=== PATIENT | male | born 1955 | race Caucasian/White ===

== ENCOUNTER → 2016-03-14 | Outpatient (CLI) | payer MEDICAID | LOC: RAD 08:57 | PROVIDERS: ATTEND Physician Assistant | DX: R41.82 Altered mental status, unspecified (principal) | CPT/HCPCS: 70450 ==

== ENCOUNTER 2016-04-24 18:57 | Emergency (ER) | payer MEDICAID ==
--- NOTE | 2016-04-24 19:50 | ER Document Report ---
ED Medical Screen (RME) - General Stated Complaint: PSYCH EVAL Time seen by provider: 19:47 Mode of Arrival: Wheelchair Information source: Friend Notes: 61-year-old male presents to ED for hallucinating unable to function according to his roommate. His friend states he has not been able to walk. The roommate states that she took him to physical therapy today and they told her to bring him back to the emergency room. She states whenhe was in the emergency room on on Thursday and she picked him up that he was laying in a bed of urine and she had to clean him up and put his clothes on him. She states she has a history of schizophrenia but is never acted like this before. I have greeted and performed a rapid initial assessment of this patient. A comprehensive ED assessment and evaluation of the patient, analysis of test results and completion of medical decision making process will be conducted by an additional ED providers. TRAVEL OUTSIDE OF THE [place] IN LAST 30 DAYS: No - Related Data Allergies/Adverse Reactions: No Known Allergies Allergy (Verified 04/22/16 07:49) Past Medical History - Past Medical History Cardiac Medical History: Reports: Hx Hypercholesterolemia, Hx Hypertension Pulmonary Medical History: Reports: Hx Pneumonia Endocrine Medical History: Reports: Hx Hyperthyroidism, Hx Hypothyroidism Renal/ Medical History: Denies: Hx Peritoneal Dialysis Musculoskeltal Medical History: Reports Hx Muscle Spasm, Reports Hx Musculoskeletal Deformity, Reports Hx Musculoskeletal Trauma Psychiatric Medical History: Reports: Hx Bipolar Disorder, Hx Depression, Hx Schizoaffective Disorder, Hx Schizophrenia - PARANOID Past Surgical History: Reports: Hx Orthopedic Surgery - Immunizations Immunizations up to date: Yes Hx Diphtheria, Pertussis, Tetanus Vaccination: Yes Physical Exam - Vital signs Vitals: Temp Pulse Resp BP Pulse Ox 98.9 F 70 20 124/71 98 04/24/16 19:06 04/24/16 19:06 04/24/16 19:06 04/24/16 19:06 04/24/16 19:06 Course - Vital Signs Vital signs: Temp Pulse Resp BP Pulse Ox 98.9 F 70 20 124/71 98 04/24/16 19:06 04/24/16 19:06 04/24/16 19:06 04/24/16 19:06 04/24/16 19:06
--- NOTE | 2016-04-24 20:17 | ER Document Report ---
ED Psych Disorder / Suicide - General Chief Complaint: Psych Problem Stated Complaint: PSYCH EVAL Mode of Arrival: Wheelchair Notes: The patient is a 61-year-old male, past medical history schizophrenia, bipolar, dementia, chronic weakness, presents with increasing hallucinations and regression. He was seen in the emergency room 2 days ago and had a negative medical workup for these complaints, including a normal head CT. Patient was attempting physical therapy today and was told to come the emergency room for further evaluation, since he was uncooperative and having hallucinations. The patient is AAO 3, but will only follow some commands. He is also not letting his executive chef know when he has to use the bathroom. Unable to obtain any additional history from the patient. TRAVEL OUTSIDE OF THE [place] IN LAST 30 DAYS: No - Related Data Allergies/Adverse Reactions: No Known Allergies Allergy (Verified 04/22/16 07:49) Past Medical History - General Information source: Friend - Social History Smoking Status: Current Every Day Smoker Chew tobacco use (# tins/day): No Frequency of alcohol use: None Drug Abuse: None Family History: None Patient has suicidal ideation: No Patient has homicidal ideation: No - Past Medical History Cardiac Medical History: Reports: Hx Hypercholesterolemia, Hx Hypertension Pulmonary Medical History: Reports: Hx Pneumonia Endocrine Medical History: Reports: Hx Hyperthyroidism, Hx Hypothyroidism Renal/ Medical History: Denies: Hx Peritoneal Dialysis Musculoskeltal Medical History: Reports Hx Muscle Spasm, Reports Hx Musculoskeletal Deformity, Reports Hx Musculoskeletal Trauma Psychiatric Medical History: Reports: Hx Bipolar Disorder, Hx Depression, Hx Schizoaffective Disorder, Hx Schizophrenia - PARANOID Past Surgical History: Reports: Hx Orthopedic Surgery - Immunizations Immunizations up to date: Yes Hx Diphtheria, Pertussis, Tetanus Vaccination: Yes Review of Systems - Review of Systems Notes: REVIEW OF SYSTEMS: CONSTITUTIONAL: -fevers, -chills EENT: -eye pain, -difficulty swallowing, -nasal congestion CARDIOVASCULAR:-chest pain, -syncope. RESPIRATORY: -cough, -SOB GASTROINTESTINAL: -abdominal pain, - nausea, -vomiting, -diarrhea GENITOURINARY: -dysuria, -hematuria MUSCULOSKELETAL: -back pain, -neck pain SKIN: -rash or skin lesions. HEMATOLOGIC: -easy bruising or bleeding. LYMPHATIC: -swollen, enlarged glands. NEUROLOGICAL: -headache, -acute weakness PSYCHIATRIC: -anxiety, -depression, +hallucinations ALL OTHER SYSTEMS REVIEWED AND NEGATIVE. Physical Exam - Vital signs Vitals: Temp Pulse Resp BP Pulse Ox 98.9 F 70 20 124/71 98 04/24/16 19:06 04/24/16 19:06 04/24/16 19:06 04/24/16 19:06 04/24/16 19:06 - Notes Notes: PHYSICAL EXAMINATION: GENERAL: Unkempt, no acute distress HEAD: Atraumatic, normocephalic. EYES: Pupils equal round and reactive to light, extraocular movements intact, sclera anicteric, conjunctiva are normal. ENT: nares patent, oropharynx clear without exudates. Moist mucous membranes. NECK: Normal range of motion, supple without lymphadenopathy LUNGS: Breath sounds clear to auscultation bilaterally and equal. No wheezes rales or rhonchi. HEART: Regular rate and rhythm without murmurs ABDOMEN: Soft, nontender, normoactive bowel sounds. No guarding, no rebound. No masses appreciated. EXTREMITIES: Normal range of motion, no pitting or edema. No cyanosis. NEUROLOGICAL: Cranial nerves grossly intact. Normal speech, normal gait. Normal sensory, motor, and reflex exams. PSYCH: Slightly agitated, but redirectable. Not suicidal. SKIN: Warm, Dry, normal turgor, no rashes or lesions noted. Course - Re-evaluation Re-evalutation: Patient's lab and CT from 2 days ago did not show any acute abnormalities. Suspect a component of worsening schizophrenia, bipolar and dementia causing his hallucinations and uncooperative behavior. Since he is not participating in physical therapy, he may have worsening physical conditioning. Creatinine has improved from 2 days ago. Will hydrate the patient gently overnight and have mental health evaluate patient in the morning for further recommendations. - Vital Signs Vital signs: Temp Pulse Resp BP Pulse Ox 98.9 F 70 20 124/71 98 04/24/16 19:06 04/24/16 19:06 04/24/16 19:06 04/24/16 19:06 04/24/16 19:06 - Laboratory Result Diagrams: 04/24/16 20:05 04/24/16 20:05 Laboratory results interpreted by me: 04/24/16 04/24/16 20:05 20:05 RBC 3.57 L Hgb 11.2 L Hct 33.5 L Plt Count 117 L BUN 29 H Creatinine 1.40 H Est GFR (Non-Af Amer) 51 L Glucose 113 H Discharge - Discharge Clinical Impression: Hallucinations, Physical deconditioning Condition: Stable Disposition: PSYCH HOSP/UNIT
[2016-04-24 20:27] LABS: ABSOLUTE LYMPHOCYTES (AUTO) 1.4 10^3/uL (0.5-4.7); ABSOLUTE MONOCYTES (AUTO) 0.6 10^3/uL (0.1-1.4); ABSOLUTE NEUT (AUTO) 4.6 10^3/uL (1.7-8.2); BASOPHILS % (AUTO) 0.1 % (0-2); EOSINOPHILS % (AUTO) 0.4 % (0-6); HEMATOCRIT 33.5 % (37.9-51.0); HEMOGLOBIN 11.2 g/dL (13.5-17.0); HGB HCT DIFFERENCE 0.1; LYMPHOCYTES % (AUTO) 21.1 % (13-45); MEAN CORPUSCULAR HEMOGLOBIN 31.5 pg (27.0-33.4); MEAN CORPUSCULAR HGB CONC 33.5 g/dL (32.0-36.0); MEAN CORPUSCULAR VOLUME 94 fl (80-97); MONOCYTES % (AUTO) 9.4 % (3-13); RED BLOOD COUNT 3.57 10^6/uL (4.35-5.55); RED CELL DISTRIBUTION WIDTH 12.7 % (11.5-14.0); WHITE BLOOD COUNT 6.7 10^3/uL (4.0-10.5)
[2016-04-24] MEDS ORDERED: NORMAL SALINE 1000 ML 1,000 ML IV ONE (20:38)
[2016-04-24 20:39] LABS: ALANINE AMINOTRANSFERASE 29 U/L (21-72); ALBUMIN 4.2 g/dL (3.5-5.0); ALKALINE PHOSPHATASE 50 U/L (38-126); ANION GAP 11 (5-19); ASPARTATE AMINO TRANSFERASE 18 U/L (17-59); BILIRUBIN,TOTAL 0.6 mg/dL (0.2-1.3); BLOOD UREA NITROGEN 29 mg/dL (7-20); CALCIUM 9.8 mg/dL (8.4-10.2); CARBON DIOXIDE 27 mmol/L (22-30); CHLORIDE 107 mmol/L (98-107); GLUCOSE 113 mg/dL (75-110); POTASSIUM 4.4 mmol/L (3.6-5.0); SODIUM 144.6 mmol/L (137-145); TOTAL PROTEIN 7.1 g/dL (6.3-8.2)
[2016-04-24 20:45] LABS: ALCOHOL < 10 mg/dL (NONE DETECTED)
[2016-04-24 20:55] LABS: FREE T3 3.69 pg/mL (2.77-5.27)
[2016-04-24 21:09] LABS: THYROID STIMULATING HORMONE 2.55 uIU/mL (0.47-4.68)
[2016-04-24] MEDS: OLANZAPINE 5 MG TABLET PO SCH (22:48)
--- NOTE | 2016-04-25 10:22 | ER Document Report ---
Doctor's Note Notes: 04/25/16 10:20 Medical rounds: Chart reviewed and patient interviewed briefly. Patient complains of continued weakness in the left leg, otherwise no somatic complaints. He appears mildly lethargic but easily arousable, oriented, and conversant. Vital signs are normal. Laboratory values are satisfactory. Patient remains medically stable pending psychiatric evaluation.
[2016-04-25] MEDS ORDERED: DIVALPROEX SODIUM 500 MG TAB.SR.24H PO SCH (11:00)
[2016-04-25 11:41] LABS: APPEARANCE,URINE SLIGHTLY-CLOUDY; BILIRUBIN,URINE NEGATIVE (NEGATIVE); GLUCOSE, URINE NEGATIVE (NEGATIVE); KETONES,URINE NEGATIVE (NEGATIVE); LEUKOCYTE ESTERASE,URINE MODERATE (NEGATIVE); NITRITE,URINE NEGATIVE (NEGATIVE); PROTEIN,URINE NEGATIVE (NEGATIVE); URINE SPECIFIC GRAVITY 1.011; UROBILINOGEN,URINE NEGATIVE mg/dL (<2.0)
[2016-04-25] MEDS ORDERED: DIVALPROEX SODIUM 500 MG TAB.SR.24H PO ONE (12:00)
[2016-04-25 12:11] LABS: URINE BARBITURATES SCREEN NEGATIVE; URINE METHADONE SCREEN NEGATIVE; URINE OPIATES LOW NEGATIVE; URINE PHENCYCLIDINE SCREEN NEGATIVE
--- NOTE | 2016-04-25 12:58 | ER Document Report ---
Doctor's Note Notes: 04/25/16 12:52 Results of urinalysis and toxicology screen noted. There is some pyuria and bacteriuria, which may be significant on a catheterized specimen. Will initiate treatment with Macrobid and Pyridium. RN reports the bladder was allowed to drain completely, with a total of approximately 250 mL volume. This makes it extremely unlikely that this patient has any serious neurologic dysfunction causing his incontinence.
[2016-04-25] MEDS: PHENAZOPYRIDINE HCL 200 MG TABLET PO SCH ×2 (13:13→18:44)
--- NOTE | 2016-04-25 15:59 | PSYCHOLOGICAL NOTE ---
Psych Note - Psych Note Psych Note: The patient presented to [facility] ED with a past medical history schizophrenia, bipolar, dementia, chronic weakness, presents with increasing hallucinations and regression. Upon entering clinician greeted patient patient stated "Not... Not... Not so loud." Clinician apologized and turned off TV. Clinician asked patient if he remembered how he arrives to [facility] ED. Patient mumbled; however, clinician was unable to identify the patient's response. Patient was unable to continue evaluation. Every question patient was asked after, the patient proceeded to breathe heavy and move his hands briefly as if he was answering; however, patient was not forming any words. Patient will have to be reevaluated at a later time.
[2016-04-25] MEDS ORDERED: LORAZEPAM INJ 2 MG/1 ML VIAL IV ONE ×2 (16:20→20:42)
[2016-04-25] MEDS: NITROFURANTOIN MONOHYD/M-CRYST 100 MG CAPSULE PO SCH (18:44)
[2016-04-25] MEDS: BUSPIRONE HCL 10 MG TABLET PO SCH (21:00)
[2016-04-25] MEDS: OLANZAPINE 5 MG TABLET PO SCH (21:00)
[2016-04-25] MEDS: DIVALPROEX SODIUM 500 MG TAB.SR.24H PO SCH (21:00)
[2016-04-26] MEDS ORDERED: ZIPRASIDONE MESYLATE INJ/PF 20 MG SDV IM ONE (04:09)
--- NOTE | 2016-04-26 09:18 | PSYCHOLOGICAL NOTE ---
Psych Note - Psych Note Psych Note: The patient presented to [facility] ED with a past medical history schizophrenia, bipolar, dementia, chronic weakness, presents with increasing hallucinations and regression. Reevaluation Patient was able to identify that he is [facility] in [place]. He is unable to remember how he came to the ED. Patient states that he wants to move down to the end of the bed so he does not slip; clinician notes that the patient's feet are at the edge of the bed. When patient is asked if he remembers where he goes for outpatient services, patient started talking about the "one on the the wire" and then stated he "goes to the paster... then when done goes to the next corner." Patient is alert and orientated to Person and place. Mood is euthymic with congruent affect. Patient's thought process and higher cognitive functioning is still impaired with disorganized thoughts process, rambling conversational speech that is within normal rate tone and prosody, and orientation waxing and waning. Review of chart/records noted patient was seen 08/22/15 and 08/24/15 for AMS. On patient was seen in the ED by the MH team after he had just been discharged from the [place]. Obtained roommate contact information from this previous visit. Head CT dated 11/10/15 findings are: prominence of ventricles and sulci consistent with cerebral atrophy, focal areas of low density in the deep right parietal lobe and right basal ganglia consistent with old lacunar infarcts. These are consistent with findings and impression from 07/16/[address] Head [address]s. 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 Patient's presentation has been identified as bioloigcal in nature and recommendations identified in Nov 2015 list benzodiazepines, antipsychotics, some sleep medications, steroids, and pain medications as these have a tendency to cause or exacerbate psychosis and/or aggression. It was identified that the pateint was on zyprexa, an anti- psychotic, and just had an increase prior to current psychosis onset. Dr. oscar was consulted on the care and management of his patient; Attending physician is in agreement with recommendations and disposition. 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 Patient's most significant deficits are notable in decision making, planning, sequencing, expression of language, safety awareness, higher cortical abstract reasoning, insight, judgment, impulse control, and ability to manage his behavior. These deficits place the Patient in harm's way and make him vulnerable to being taken advantage of by others, and also to make decisions that are not in his best interest. Patient's cognitive presentation will continue to decline, particularly given results of his head CT which show prominent ventricles and sulci consistent with cerebral atrophy, and low density areas in the deep right parietal lobe and right basal ganglia consistent with an old lacunar infarct. As such the following recommendations are made to ensure the Patient's safety and well being going forward: Recommendations: 1. Patient will require ongoing treatment for the care of his medical and mental health problems for the foreseeable future, and is should follow up with his primary care physician and mental health provider upon discharge. 2. Patient is not capable of making safe or reasonable decisions on his own behalf. A guardian to protect his medical , legal, financial, and personal interests are recommended. Patient's requests should be considered but his ability to independently make decisions is severely compromised. 3. Patient requires a higher level of care given his neurocognitive and physical deterioration. His current living situation is not felt to best meet his needs given his roommate is not his guardian, does take care of his daily living activities, but has no obligation to do so, and should Patient become aggravated, his roommates have no obligation to keep Patient in his current living arrangements. Additionally, it is felt the Patient requires 24-hour supervision as his cognitive status continues to decline and his ability to inhibit his impulses becomes more difficult, particularly given his access to alcohol at this time. 4. Attending / Prescribing physicians are encouraged to avoid the use of benzodiazepines, antipsychotics,a nd narcotic medications if possible, as research shows these classes of medicines are dangerous to individuals diagnosed with dementia and can also enhanced agitation, increased irritability and aggression, and cause hallucinations and psychosis, and potentially . Consulted with Dr. Oscar regarding the management and care of patient. Medication recommendations made by the psychiatric medical provider include: Note that due to dementia doctors should avoid medications such as benzodiazepines, antipsychotics, some sleep medications, steroids, and pain medications as these have a tendency to cause or exacerbate psychosis and/or aggression.
[2016-04-26] MEDS: DIVALPROEX SODIUM 500 MG TAB.SR.24H PO SCH ×2 (09:51→23:20)
[2016-04-26] MEDS: NITROFURANTOIN MONOHYD/M-CRYST 100 MG CAPSULE PO SCH ×2 (09:51→18:02)
[2016-04-26] MEDS: PHENAZOPYRIDINE HCL 200 MG TABLET PO SCH ×2 (13:50→18:02)
--- NOTE | 2016-04-26 21:25 | ER Document Report ---
Doctor's Note Notes: 04/26/16 21:22 Medical rounds: Patient continues to be confused, although he has shown some improvement in his ambulation. Also, his urinary incontinence has apparently resolved. He has done well today without any additional pharmacologic interventions. Finding placement for this patient is proving to be challenging. Discharge planning and social media senior associate have been consulted for resolution of this problem. He remains medically stable.
[2016-04-26] MEDS: OLANZAPINE 5 MG TABLET PO SCH (23:20)
[2016-04-26] MEDS: BUSPIRONE HCL 10 MG TABLET PO SCH (23:20)
[2016-04-27] MEDS: DIVALPROEX SODIUM 500 MG TAB.SR.24H PO SCH (10:55)
[2016-04-27] MEDS: PHENAZOPYRIDINE HCL 200 MG TABLET PO SCH (10:56)
[2016-04-27] MEDS: NITROFURANTOIN MONOHYD/M-CRYST 100 MG CAPSULE PO SCH (10:56)
[2016-04-27 13:39] VITALS: BP 148/86
== END 2016-04-27 13:39 | disposition home or self-care (01) ==
LOC: ER 18:57
DX: R32 Unspecified urinary incontinence (principal); F02.81 Dementia in other diseases classified elsewhere, unspecified severity, with behavioral disturbance; R53.1 Weakness; I67.9 Cerebrovascular disease, unspecified; T43.595A Adverse effect of other antipsychotics and neuroleptics, initial encounter; T50.905A Adverse effect of unspecified drugs, medicaments and biological substances, initial encounter; Y92.009 Unspecified place in unspecified non-institutional (private) residence as the place of occurrence of the external cause; F17.200 Nicotine dependence, unspecified, uncomplicated; F20.9 Schizophrenia, unspecified; R44.3 Hallucinations, unspecified; E03.9 Hypothyroidism, unspecified; E78.00 Pure hypercholesterolemia, unspecified; I10 Essential (primary) hypertension
CPT/HCPCS: 96376; 99285; 96372; 96361; 96374; 36415; 87086; 84439; 80307 ×2; 84443; 85025; 87088; 80053; 81001; 84481; J3490 ×14; J2060; J3486; J7030; J8499

== ENCOUNTER 2016-09-29 07:50 | Day surgery (SDC) | payer MEDICAID ==
[~2016-09-29 07:50] MED LIST: PROPOFOL INJ 200 MG/20 ML VIAL IV ONE
--- NOTE | 2016-09-29 08:40 | EKG REPORT ---
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
[2016-09-29 09:54] VITALS: BP 136/61
--- NOTE | 2016-09-29 14:31 | Operative Report ---
Operative Report DATE OF SURGERY: 09/29/16 Operative Report: The risks, benefits and alternatives of the procedure including risks of bleeding, perforation requiring surgery are explained to the patient detail and informed consent was obtained. Patient was brought back to the endoscopy suite and placed in the left, lateral decubital position. A rectal examination is done which did not reveal any masses tenderness or fissures. Timeout was called. Propofol medications administered. An Olympus videoscope was inserted into the patient's rectum. The scope was then carefully advanced all the way to the cecum. The cecum was identified by the usual anatomical landmarks of the ileocecal valve as well as the appendiceal office. Photodocumentation is obtained. Prep is good. The scope was then sequentially pulled back via the various segments of the colon including the ascending colon, hepatic flexure, transverse colon, splenic flexure, descending colon finding to the rectosigmoid portions of the colon. Retroflexion maneuver was performed. PREOPERATIVE DIAGNOSIS: Chronic constipation. Family history of colorectal cancer POSTOPERATIVE DIAGNOSIS: Large polyp noted in the sigmoid removed via snare polypectomy. Small polyp noted in the cecum removed via biopsy forceps. No masses, AVMs or diverticulosis noted OPERATION: Colonoscopy with snare polypectomy. Colonoscopy with biopsy SURGEON: SUNIL ARAUJO ANESTHESIA: LMAC TISSUE REMOVED OR ALTERED: Both polyps are retrieved. COMPLICATIONS: None. ESTIMATED BLOOD LOSS: None. INTRAOPERATIVE FINDINGS: As described above. PROCEDURE: Patient tolerated procedure well. No immediate postprocedure complications are noted. Patient discharged in good condition. Discharge date 09/29/2016. Discharge diet: Regular. Discharge activity: Regular. 2-3 week follow-up to discuss findings. 3-5 year surveillance colonoscopy. We will wait on pathology. Patient is instructed to call the office or proceed to the emergency room should there be any further problems or questions.
== END 2016-09-29 10:00 | disposition home or self-care (01) ==
LOC: END 07:50
PROVIDERS: ATTEND Internal Medicine Gastroenterology
PROC: 0DBN8ZX Excision of Sigmoid Colon, Via Natural or Artificial Opening Endoscopic, Diagnostic (ICD-10-PCS; 2016-09-29)
PROC: 0DBH8ZX Excision of Cecum, Via Natural or Artificial Opening Endoscopic, Diagnostic (ICD-10-PCS; principal; 2016-09-29 09:00)
DX: D12.5 Benign neoplasm of sigmoid colon (principal); D12.0 Benign neoplasm of cecum; Z80.0 Family history of malignant neoplasm of digestive organs; E03.9 Hypothyroidism, unspecified
CPT/HCPCS: 45385; 88305 ×2; 93005; 93010; J2704; 810

== ENCOUNTER → 2017-04-09 | Outpatient (CLI) | payer MEDICAID ==
--- NOTE | 2017-04-09 13:39 | RADIOLOGY REPORT (SQ) ---
EXAM DESCRIPTION: LUMBAR SPINE COMPLETE COMPLETED DATE/TIME: 04/09/2017 9:08 am REASON FOR STUDY: LOW BACK PAIN J18.9 PNEUMONIA, UNSPECIFIED ORGANISM M54.5 LOW BACK PAIN COMPARISON: 04/26/2014 NUMBER OF VIEWS: Five views including obliques. TECHNIQUE: AP, lateral, oblique, and sacral radiographic images acquired of the lumbar spine. LIMITATIONS: None. FINDINGS: MINERALIZATION: Normal. SEGMENTATION: Normal. No transitional anatomy. ALIGNMENT: Minimal scoliosis convex to to the right. Minor retrolisthesis L2-3 and L3-4 with arthrit ic changes of the facet joints. VERTEBRAE: Maintained height. No fracture or worrisome bone lesion. Stable slight flattening T12. DISCS: Minor joint narrowing upper lumbar region with trace osteophyte. POSTERIOR ELEMENTS: Intact. Arthritic changes. HARDWARE: None in the spine. PARASPINAL SOFT TISSUES: Normal. PELVIS: Limited visualization. OTHER: No other significant finding. IMPRESSION: Mild arthritic changes. No acute compression fractures. TECHNICAL DOCUMENTATION: JOB ID: [id number] [employer]- All Rights Reserved Reading location - IP/workstation name: [email or web address]
--- NOTE | 2017-04-09 16:15 | RADIOLOGY REPORT (SQ) ---
EXAM DESCRIPTION: CHEST PA/LATERAL COMPLETED DATE/TIME: 04/09/2017 9:08 am REASON FOR STUDY: PNEUMONIA, UNSPECIFIED ORGANISM COMPARISON: 01/02/2016 EXAM PARAMETERS: NUMBER OF VIEWS: two views TECHNIQUE: Digital Frontal and Lateral radiographic views of the chest acquired. RADIATION DOSE: NA LIMITATIONS: none FINDINGS: LUNGS AND PLEURA: New mild increased density in the right base consistent with pneumonia w hich appears to be in the anterior middle lobe on the lateral view. Minimal atelectasis in the left base. Lungs are otherwise clear. No significant effusion. MEDIASTINUM AND HILAR STRUCTURES: No masses or contour abnormalities. HEART AND VASCULAR STRUCTURES: Heart normal size. No evidence for failure. BONES: No acute findings. HARDWARE: None in the chest. OTHER: No other significant finding. IMPRESSION: Mild right basilar pneumonia. TECHNICAL DOCUMENTATION: JOB ID: [id number] [employer]- All Rights Reserved Reading location - IP/workstation name: [email or web address]
== END ==
LOC: OD 08:40
PROVIDERS: ATTEND Physician Assistant
DX: J18.9 Pneumonia, unspecified organism (principal); M54.5 Low back pain
CPT/HCPCS: 71046; 72110

== ENCOUNTER 2017-05-04 09:18 | Emergency (ER) | payer MEDICAID ==
--- NOTE | 2017-05-04 10:21 | ER Document Report ---
ED General - General Chief Complaint: Altered Mental Status Stated Complaint: ALTERED MENTAL STATUS Time Seen by Provider: 05/04/17 10:00 Notes: HPI-62 years old male presents today with fever chills cough, wheezing, as well as lower back pain from coughing. This is been going on for the last 2-3 days Denies any dysuria frequency urgency. Denies any nausea vomiting diarrhea. Difficult historian. REVIEW OF SYSTEMS: CONSTITUTIONAL : As per history of complain EENT: Denies eye, ear, throat, or mouth pain or symptoms. Denies nasal or sinus congestion or discharge. Denies throat, tongue, or mouth swelling or difficulty swallowing. CARDIOVASCULAR: Denies chest pain. Denies palpitations or racing or irregular heart beat. Denies ankle edema. RESPIRATORY: As per history of complaint GASTROINTESTINAL: Denies abdominal pain or distention. Denies nausea, vomiting , or diarrhea. Denies blood in vomitus, stools, or per rectum. Denies black, tarry stools. Denies constipation. GENITOURINARY: Denies difficulty urinating, painful urination, burning, frequency, blood in urine, or discharge. MUSCULOSKELETAL: Denies back or neck pain or stiffness. Denies joint pain or swelling. SKIN: Denies rash, lesions or sores. HEMATOLOGIC : Denies easy bruising or bleeding. LYMPHATIC: Denies swollen, enlarged glands. NEUROLOGICAL: Denies confusion or altered mental status. Denies passing out or loss of consciousness. Denies dizziness or lightheadedness. Denies headache. Denies weakness or paralysis or loss of use of either side. Denies problems with gait or speech. Denies sensory loss, numbness, or tingling. Denies seizures. PSYCHIATRIC: Denies anxiety or stress. Denies depression, suicidal ideation, or homicidal ideation. ALL OTHER SYSTEMS REVIEWED AND NEGATIVE. Dictation was performed using [employer] voice recognition software PHYSICAL EXAMINATION: GENERAL: Well-appearing, well-nourished and in no acute distress. HEAD: Atraumatic, normocephalic. EYES: Pupils equal round and reactive to light, extraocular movements intact, sclera anicteric, conjunctiva are normal. ENT: Nares patent, oropharynx clear without exudates. Moist mucous membranes. NECK: Normal range of motion, supple without lymphadenopathy LUNGS: Breath sounds clear to auscultation bilaterally and equal. No wheezes rales or rhonchi. HEART: Regular rate and rhythm without murmurs ABDOMEN: Soft, nontender, nondistended abdomen. No guarding, no rebound. No masses appreciated. Musculoskeletal: Normal range of motion, no pitting or edema. No cyanosis. NEUROLOGICAL: Cranial nerves grossly intact. Normal speech, normal gait. Normal sensory, motor exams PSYCH: Normal mood, normal affect. SKIN: Warm, Dry, normal turgor, no rashes or lesions noted. TRAVEL OUTSIDE OF THE [place] IN LAST 30 DAYS: No - HPI Severity: Moderate Pain Level: 3 - Related Data Allergies/Adverse Reactions: No Known Allergies Allergy (Verified 05/04/17 09:18) Past Medical History - Social History Smoking Status: Never Smoker Family History: None, Reviewed & Not Pertinent - Past Medical History Cardiac Medical History: Reports: Hx Hypercholesterolemia, Hx Hypertension - Takes Minipress, caregiver says its for his mental health Denies: Hx Coronary Artery Disease, Hx Heart Attack Pulmonary Medical History: Reports: Hx Pneumonia Denies: Hx Asthma, Hx Bronchitis, Hx COPD Neurological Medical History: Reports: Hx Cerebrovascular Accident - 2016, unsteady gait-uses walker , slurred speech , Hx Seizures Endocrine Medical History: Reports: Hx Hyperthyroidism, Hx Hypothyroidism Renal/ Medical History: Denies: Hx Peritoneal Dialysis Musculoskeltal Medical History: Reports Hx Arthritis - c/o leg and back pain , Reports Hx Muscle Spasm, Reports Hx Musculoskeletal Deformity, Reports Hx Musculoskeletal Trauma Psychiatric Medical History: Reports: Hx Bipolar Disorder, Hx Depression, Hx Schizoaffective Disorder, Hx Schizophrenia - PARANOID Past Surgical History: Reports: Hx Orthopedic Surgery - Immunizations Immunizations up to date: Yes Hx Diphtheria, Pertussis, Tetanus Vaccination: No Physical Exam - Vital signs Vitals: Temp Pulse Resp BP Pulse Ox 101.8 F H 82 22 H 170/74 H 94 05/04/17 09:24 05/04/17 09:24 05/04/17 09:24 05/04/17 09:24 05/04/17 09:24 Course - Re-evaluation Re-evalutation: 05/04/17 13:33 His lab results came back normal he must be having viral syndrome. He has known dementia and behavioral issues. - Vital Signs Vital signs: Temp Pulse Resp BP Pulse Ox 100.0 F 82 22 H 151/75 H 92 05/04/17 16:00 05/04/17 09:24 05/04/17 11:13 05/04/17 11:13 05/04/17 11:13 - Laboratory Result Diagrams: 05/04/17 10:55 05/04/17 10:55 Laboratory results interpreted by me: 05/04/17 05/04/17 05/04/17 10:28 10:55 10:55 RBC 3.74 L Hgb 11.4 L Hct 34.2 L RDW 14.5 H Seg Neuts % (Manual) 80 H Band Neutrophils % 1 L Lymphocytes % (Manual) 10 L Chloride 108 H Urine Blood SMALL H - Diagnostic Test Radiology reviewed: Reports reviewed - CT of the brain reported by radiologist as chronic vascular changes no acute changes. Chest x-ray reported by radiologist as possible atelectasis. - EKG Interpretation by Me EKG shows normal: Sinus rhythm Rate: Normal Rhythm: NSR - Sinus rhythm at the rate of 90 bpm normal axis no acute ST elevation ST depression T-wave inversion noted. Except right bundle branch block pattern [place]/QRS: RBBB Discharge - Discharge Clinical Impression: Viral syndrome Schizophrenia Qualifiers: Schizophrenia type: other Qualified Code(s): F20.89 - Other schizophrenia Disposition: HOME, SELF-CARE Instructions: Viral Syndrome (OM) Referrals: EBONIE ZURITA PA-C [Primary Care Provider] - Follow up as needed
[2017-05-04 10:45] LABS: APPEARANCE,URINE CLEAR; BILIRUBIN,URINE NEGATIVE (NEGATIVE); COLOR,URINE STRAW; GLUCOSE, URINE NEGATIVE (NEGATIVE); KETONES,URINE NEGATIVE (NEGATIVE); LEUKOCYTE ESTERASE,URINE NEGATIVE (NEGATIVE); NITRITE,URINE NEGATIVE (NEGATIVE); PROTEIN,URINE NEGATIVE (NEGATIVE); URINE SPECIFIC GRAVITY 1.011; UROBILINOGEN,URINE NEGATIVE mg/dL (<2.0)
--- NOTE | 2017-05-04 11:00 | RADIOLOGY REPORT (SQ) ---
EXAM DESCRIPTION: CHEST SINGLE VIEW COMPLETED DATE/TIME: 05/04/2017 10:42 am REASON FOR STUDY: cough COMPARISON: 04/09/2017 EXAM PARAMETERS: NUMBER OF VIEWS: One view. TECHNIQUE: Single frontal radiographic view of the chest acquired. RADIATION DOSE: NA LIMITATIONS: None. FINDINGS: LUNGS AND PLEURA: Minimal linear density is identified in the right lung base which appear s improved as compared to the previous study. This could represent a minimal infiltrate or atelectat ic changes. Remaining lung campbell are clear. No pleural effusions are identified MEDIASTINUM AND HILAR STRUCTURES: No masses. Contour normal. HEART AND VASCULAR STRUCTURES: Heart normal in size. Normal vasculature. BONES: No acute findings. HARDWARE: None in the chest. OTHER: No other significant finding. IMPRESSION: Minimal right basilar density as noted above which could represent a minimal infiltrate or atelectatic changes. Remaining lung campbell are clear. No other significant interval change TECHNICAL DOCUMENTATION: JOB ID: [id number] [email or web address]- All Rights Reserved Reading location - IP/workstation name: [email or web address]
[2017-05-04 11:13] LABS: VENOUS BLOOD BASE EXCESS -0.7 mmol/L; VENOUS BLOOD HCO3 24.8 mmol/L (20-32); VENOUS BLOOD PCO2 44.5 mmHg (35-63); VENOUS BLOOD PH 7.36 (7.30-7.42)
[2017-05-04 11:15] LABS: HEMATOCRIT 34.2 % (37.9-51.0); HEMOGLOBIN 11.4 g/dL (13.5-17.0); MEAN CORPUSCULAR HEMOGLOBIN 30.5 pg (27.0-33.4); MEAN CORPUSCULAR HGB CONC 33.3 g/dL (32.0-36.0); MEAN CORPUSCULAR VOLUME 92 fl (80-97); PLATELET COUNT 159 10^3/uL (150-450); RED BLOOD COUNT 3.74 10^6/uL (4.35-5.55); RED CELL DISTRIBUTION WIDTH 14.5 % (11.5-14.0); WHITE BLOOD COUNT 8.6 10^3/uL (4.0-10.5)
[2017-05-04 11:19] LABS: INTERNATIONAL RATION (INR) 0.91; PROTHROMBIN TIME 12.9 SEC (11.4-15.4)
[2017-05-04 11:32] VITALS: BP 151/75
[2017-05-04 11:33] LABS: ALANINE AMINOTRANSFERASE 34 U/L (21-72); ALBUMIN 3.9 g/dL (3.5-5.0); ALKALINE PHOSPHATASE 44 U/L (38-126); ANION GAP 5 (5-19); ASPARTATE AMINO TRANSFERASE 34 U/L (17-59); BILIRUBIN,DIRECT 0.2 mg/dL (0.0-0.4); BILIRUBIN,TOTAL 0.2 mg/dL (0.2-1.3); BLOOD UREA NITROGEN 19 mg/dL (7-20); CALCIUM 9.1 mg/dL (8.4-10.2); CARBON DIOXIDE 30 mmol/L (22-30); CHLORIDE 108 mmol/L (98-107); GLUCOSE 90 mg/dL (75-110); POTASSIUM 4.1 mmol/L (3.6-5.0); SODIUM 143.3 mmol/L (137-145); TOTAL PROTEIN 7.1 g/dL (6.3-8.2)
[2017-05-04 11:39] LABS: ABSOLUTE LYMPHOCYTES# (MANUAL) 0.9 10^3/uL (0.5-4.7); ABSOLUTE MONOCYTES # (MANUAL) 0.7 10^3/uL (0.1-1.4); BAND NEUTROPHILS % (MANUAL) 1 % (3-5); BASOPHILS % (MANUAL) 0 % (0-2); EOSINOPHILS % (MANUAL) 1 % (0-6); LYMPHOCYTES % (MANUAL) 10 % (13-45); MONOCYTES % (MANUAL) 8 % (3-13); SEGMENTED NEUTROPHILS % (MAN) 80 % (42-78); TOTAL CELLS COUNTED 100
[2017-05-04 11:42] LABS: ANISOCYTOSIS SLIGHT; PLATELET COMMENT ADEQUATE
[2017-05-04] MEDS ORDERED: LORAZEPAM INJ 2 MG/1 ML VIAL IV ONE (12:37)
--- NOTE | 2017-05-04 14:17 | EKG REPORT ---
SEVERITY:- ABNORMAL ECG - SINUS ARRHYTHMIA, RATE 72-115 RBBB AND LAFB : Confirmed by: Fish Farah MD 04-May-2017 14:17:24
--- NOTE | 2017-05-04 16:02 | RADIOLOGY REPORT (SQ) ---
EXAM DESCRIPTION: CT HEAD WITHOUT COMPLETED DATE/TIME: 05/04/2017 3:54 pm REASON FOR STUDY: cofusion COMPARISON: Motion. TECHNIQUE: Axial images acquired through the brain without intravenous contrast. Images reviewed wi th bone, brain and subdural windows. Images stored on PACS. All CT scanners at this facility use dose modulation, iterative reconstruction, and/or weight based d osing when appropriate to reduce radiation dose to as low as reasonably achievable (ALARA). [facility]: Dose Right [facility]: CareDose [facility]: Dose Right [facility]: Teradose 4D [facility]: MessageParty RADIATION DOSE: CT Rad equipment meets quality standard of care and radiation dose reduction techniq ues were employed. CTDIvol: 64.6 mGy. DLP: 1938 mGy-cm.mGy. LIMITATIONS: None. FINDINGS: VENTRICLES: Prominent. CEREBRUM: No masses. No hemorrhage. No midline shift. Areas of low density in the white matter mos t likely due to chronic micro-vascular ischemic change. No evidence for acute infarction. CEREBELLUM: No masses. No hemorrhage. No alteration of density. No evidence for acute infarction. EXTRAAXIAL SPACES: Age-related involutional change. No fluid collections. No masses. ORBITS AND GLOBE: No intra- or extraconal masses. Normal contour of globe without masses. CALVARIUM: No fracture. PARANASAL SINUSES: No fluid or mucosal thickening. SOFT TISSUES: No mass or hematoma. OTHER: No other significant finding. IMPRESSION: CHRONIC CHANGES OF ATROPHY AND MICROVASCULAR ISCHEMIA. NO ACUTE PROCESS. EVIDENCE OF ACUTE STROKE: NO. TECHNICAL DOCUMENTATION: JOB ID: [id number] Quality ID # [id number]: Final reports with documentation of one or more dose reduction techniques (e.g., Au tomated exposure control, adjustment of the mA and/or kV according to patient size, use of iterative reconstruction technique) 2010 [email or web address]- All Rights Reserved Reading location - IP/workstation name: [email or web address]
== END 2017-05-04 17:11 | disposition home or self-care (01) ==
LOC: ER 09:18
DX: B34.9 Viral infection, unspecified (principal); F20.89 Other schizophrenia; R41.82 Altered mental status, unspecified; R50.9 Fever, unspecified; R05 Cough; R06.2 Wheezing; M54.5 Low back pain; I10 Essential (primary) hypertension; F03.90 Unspecified dementia, unspecified severity, without behavioral disturbance, psychotic disturbance, mood disturbance, and anxiety; Z79.899 Other long term (current) drug therapy
CPT/HCPCS: 93005; 99285; 96374; 36415; 87040; 87086; 85025; 85610; 87088; 80053; 81001; 87186; 82803; 83605; 71045; 70450; 93010; J2060

== ENCOUNTER 2017-06-27 10:16 | Emergency (ER) | payer MEDICAID ==
--- NOTE | 2017-06-27 10:45 | ER Document Report ---
ED Medical Screen (RME) - General Chief Complaint: Irregular Pulse Stated Complaint: RAPID HEART RATE Time Seen by Provider: 06/27/17 10:31 Notes: 62-year-old male with a history of depression, anxiety, schizophrenia presents emergency department complaining that for the past 2 weeks he has been more confused than usual, wetting the bed and retaining fluid in his legs. Patient' s balancer state that he was told yesterday by his psychiatrist that he should come to the emergency department to be evaluated for this. He denies any pain, denies any shortness of breath but does admit a history of fluid retention in the past year. They are not certain whether or not he has ever been diagnosed with congestive heart failure. TRAVEL OUTSIDE OF THE [place] IN LAST 30 DAYS: No - Related Data Allergies/Adverse Reactions: No Known Allergies Allergy (Verified 06/27/17 10:16) Past Medical History - Social History Cigarette use (# per day): Yes - Heavy Chew tobacco use (# tins/day): No Frequency of alcohol use: None Drug Abuse: None - Past Medical History Cardiac Medical History: Reports: Hx Hypercholesterolemia, Hx Hypertension - Takes Minipress, caregiver says its for his mental health Denies: Hx Coronary Artery Disease, Hx Heart Attack Pulmonary Medical History: Reports: Hx Pneumonia Denies: Hx Asthma, Hx Bronchitis, Hx COPD Neurological Medical History: Reports: Hx Cerebrovascular Accident - 2016, unsteady gait-uses walker , slurred speech , Hx Seizures Endocrine Medical History: Reports: Hx Hyperthyroidism, Hx Hypothyroidism Renal/ Medical History: Denies: Hx Peritoneal Dialysis Musculoskeltal Medical History: Reports Hx Arthritis - c/o leg and back pain , Reports Hx Muscle Spasm, Reports Hx Musculoskeletal Deformity, Reports Hx Musculoskeletal Trauma Psychiatric Medical History: Reports: Hx Anxiety, Hx Bipolar Disorder, Hx Depression, Hx Schizoaffective Disorder, Hx Schizophrenia - PARANOID Past Surgical History: Reports: Hx Orthopedic Surgery - Immunizations Immunizations up to date: Yes Hx Diphtheria, Pertussis, Tetanus Vaccination: No Review of Systems - Review of Systems Constitutional: No symptoms reported EENT: No symptoms reported Cardiovascular: See HPI - Chief complaints is rapid heart rate however he denies any chest complaints to me., Edema. denies: Chest pain Respiratory: No symptoms reported. denies: Short of breath Gastrointestinal: No symptoms reported Genitourinary: See HPI - States he does not feel like he is urinating as much as usual. Neurological/Psychological: Confusion, Dementia, Depression Physical Exam - Vital signs Vitals: Temp Pulse Resp BP Pulse Ox 97.6 F 55 L 16 135/67 H 94 06/27/17 10:24 06/27/17 10:24 06/27/17 10:24 06/27/17 10:24 06/27/17 10:24 Interpretation: Hypertensive, Bradycardic - Notes Notes: General: Awake, slightly slow to respond, is oriented to person place and time. HEENT: Normocephalic atraumatic Heart: Regular rate and rhythm no murmurs gallops or rubs, occasional ectopic beat Respiratory: Clear to auscultation bilaterally, no wheezes, rales or rhonchi Extremities: 1+ pitting edema to the right lower extremity, no edema to the left lower extremity. Course - Vital Signs Vital signs: Temp Pulse Resp BP Pulse Ox 97.6 F 55 L 16 135/67 H 94 06/27/17 10:24 06/27/17 10:24 06/27/17 10:24 06/27/17 10:24 06/27/17 10:24
[2017-06-27 11:15] LABS: ABSOLUTE EOSINOPHILS # (AUTO) 0.1 10^3/uL (0.0-0.6); ABSOLUTE LYMPHOCYTES (AUTO) 2.4 10^3/uL (0.5-4.7); ABSOLUTE MONOCYTES (AUTO) 0.4 10^3/uL (0.1-1.4); ABSOLUTE NEUT (AUTO) 3.2 10^3/uL (1.7-8.2); BASOPHILS % (AUTO) 0.5 % (0-2); EOSINOPHILS % (AUTO) 2.2 % (0-6); HEMOGLOBIN 12.2 g/dL (13.5-17.0); LYMPHOCYTES % (AUTO) 38.5 % (13-45); MEAN CORPUSCULAR HEMOGLOBIN 30.5 pg (27.0-33.4); MEAN CORPUSCULAR VOLUME 93 fl (80-97); MONOCYTES % (AUTO) 7.1 % (3-13); PLATELET COUNT 120 10^3/uL (150-450); RED CELL DISTRIBUTION WIDTH 14.6 % (11.5-14.0); SEGMENTED NEUTROPHILS % (AUTO) 51.7 % (42-78); TOTAL CELLS COUNTED % (AUTO) 100 %; WHITE BLOOD COUNT 6.2 10^3/uL (4.0-10.5)
--- NOTE | 2017-06-27 11:32 | ER Document Report ---
ED General - General Chief Complaint: Irregular Pulse Stated Complaint: RAPID HEART RATE Time Seen by Provider: 06/27/17 10:31 Mode of Arrival: Stretcher Information source: Patient Notes: This is a 62-year-old man with a history of schizophrenia, dementia, chronic weakness and deconditioning who was brought into the emergency room because of a rapid heartbeat and increased lower extremity edema. Patient does report being urinary incontinent. He denies any chest pain, shortness of breath, fevers or back pain. TRAVEL OUTSIDE OF THE [place] IN LAST 30 DAYS: No - HPI Onset: Last week Onset/Duration: Gradual Quality of pain: No pain Severity: None Pain Level: Denies Associated symptoms: denies: Chest pain, Fever, Shortness of breath Exacerbated by: Denies Relieved by: Denies Similar symptoms previously: Yes Recently seen / treated by doctor: Yes - Related Data Allergies/Adverse Reactions: No Known Allergies Allergy (Verified 06/27/17 10:16) Past Medical History - General Information source: Patient - Social History Smoking Status: Current Every Day Smoker Cigarette use (# per day): Yes - Heavy Chew tobacco use (# tins/day): No Frequency of alcohol use: None Drug Abuse: None Lives with: Family Family History: None, Reviewed & Not Pertinent Patient has suicidal ideation: No Patient has homicidal ideation: No - Past Medical History Cardiac Medical History: Reports: Hx Hypercholesterolemia, Hx Hypertension - Takes Minipress, caregiver says its for his mental health Denies: Hx Coronary Artery Disease, Hx Heart Attack Pulmonary Medical History: Reports: Hx Pneumonia Denies: Hx Asthma, Hx Bronchitis, Hx COPD Neurological Medical History: Reports: Hx Cerebrovascular Accident - 2016, unsteady gait-uses walker , slurred speech , Hx Seizures Endocrine Medical History: Reports: Hx Hyperthyroidism, Hx Hypothyroidism Renal/ Medical History: Denies: Hx Peritoneal Dialysis Musculoskeltal Medical History: Reports Hx Arthritis - c/o leg and back pain , Reports Hx Muscle Spasm, Reports Hx Musculoskeletal Deformity, Reports Hx Musculoskeletal Trauma Psychiatric Medical History: Reports: Hx Anxiety, Hx Bipolar Disorder, Hx Depression, Hx Schizoaffective Disorder, Hx Schizophrenia - PARANOID Past Surgical History: Reports: Hx Orthopedic Surgery - Immunizations Immunizations up to date: Yes Hx Diphtheria, Pertussis, Tetanus Vaccination: No Review of Systems - Review of Systems Constitutional: denies: Chills, Fever EENT: No symptoms reported Cardiovascular: No symptoms reported Respiratory: No symptoms reported Gastrointestinal: No symptoms reported Genitourinary: See HPI Musculoskeletal: No symptoms reported Skin: No symptoms reported Hematologic/Lymphatic: No symptoms reported Neurological/Psychological: No symptoms reported Physical Exam - Vital signs Vitals: Temp Pulse Resp BP Pulse Ox 97.6 F 55 L 16 135/67 H 94 06/27/17 10:24 06/27/17 10:24 06/27/17 10:24 06/27/17 10:24 06/27/17 10:24 Notes: Physical exam: GENERAL: 62-year-old man, alert, he is oriented, he is a poor historian, he does not appear in any acute distress. HEAD: Atraumatic, normocephalic. EYES: Pupils equal round and reactive to light, extraocular movements intact, sclera anicteric, conjunctiva are normal. ENT: TMs normal, nares patent, oropharynx clear without exudates. Moist mucous membranes. NECK: Normal range of motion, supple without obvious mass or JVD. LUNGS: Breath sounds clear to auscultation bilaterally and equal. No wheezes rales or rhonchi. HEART: Regular rate and rhythm without murmurs, rubs or gallops. ABDOMEN: Soft, normoactive bowel sounds. No tenderness to palpation. No guarding, no rebound. No masses appreciated. EXTREMITIES: Mild lower extremity weakness NEUROLOGICAL: Cranial nerves II through XII grossly intact. Normal speech, moving all extremities. PSYCH: Normal mood, normal affect. SKIN: Warm, Dry, normal turgor, no rashes or lesions noted. Bedside ultrasound: No hydronephrosis. No significant bladder distention. Course - Re-evaluation Re-evalutation: 06/27/17 13:39 Note: I have discussed the lab tests with the patient as well as the health care providers at the bedside. The patient is alert and knows where he is in the delivery refuses a straight cath. His mental status has been baseline as per the health provider. He has not had any fever and his white count is normal. Bedside ultrasound shows no evidence of obstructive uropathy. He has had symptoms like this in the past which was attributed to a UTI, so I will treat him presumptively for UTI. The patient knows where he is and understands what a straight cath is and absolutely refuses it at this point. The concern is that if he strapped down to to perform this procedure, more harm than good will arise. - Vital Signs Vital signs: Temp Pulse Resp BP Pulse Ox 97.6 F 55 L 14 161/72 H 98 06/27/17 10:24 06/27/17 10:24 06/27/17 13:01 06/27/17 13:01 06/27/17 13:01 - Laboratory Result Diagrams: 06/27/17 11:00 06/27/17 11:00 Laboratory results interpreted by me: 06/27/17 06/27/17 11:00 11:00 RBC 4.00 L Hgb 12.2 L Hct 37.0 L RDW 14.6 H Plt Count 120 L Sodium 148.1 H Est GFR (Non-Af Amer) 59 L AST 13 L - Diagnostic Test Radiology reviewed: Image reviewed, Reports reviewed - CT of the head shows no change in ventricle size. Chest x-ray shows no obvious infiltrate. - EKG Interpretation by Me Rate: Normal Rhythm: NSR - EKG shows normal sinus rhythm with a left anterior hemiblock, right bundle branch block, no acute ST-T wave changes, premature atrial complex. The ventricular rate is 50. Discharge - Discharge Clinical Impression: UTI Condition: Stable Disposition: HOME, SELF-CARE Additional Instructions: As we discussed, the kidney function tests were normal. The electrolytes look good and the white count was normal. Heart function tests were normal. Chest x -ray looked clear. A head CT was performed and looked unchanged. Based upon Omega symptoms, we will treat presumptively for a UTI (he does not wish to have a straight cath at this time). Bedside ultrasound shows no evidence of urinary obstruction. I would like you to drink plenty of fluids (but after 8 PM, before bed, do not drink any fluids so that you will not be up in the middle the night). Follow-up with the urologist and the primary care doctor. Take the Bactrim as prescribed. Return to the emergency room for any concerns that carries getting worse. Prescriptions: Sulfamethoxazole/Trimethoprim [Bactrim Ds Tablet] 1 each PO BID #14 tablet Referrals: EBONIE ZURITA PA-C [Primary Care Provider] - Follow up in 3-5 days
[2017-06-27 11:46] LABS: ALANINE AMINOTRANSFERASE 26 U/L (21-72); ALBUMIN 3.5 g/dL (3.5-5.0); ALKALINE PHOSPHATASE 38 U/L (38-126); ANION GAP 13 (5-19); ASPARTATE AMINO TRANSFERASE 13 U/L (17-59); BILIRUBIN,DIRECT 0.2 mg/dL (0.0-0.4); BILIRUBIN,TOTAL 0.2 mg/dL (0.2-1.3); BLOOD UREA NITROGEN 19 mg/dL (7-20); CALCIUM 9.4 mg/dL (8.4-10.2); CARBON DIOXIDE 28 mmol/L (22-30); CHLORIDE 107 mmol/L (98-107); CREATINE KINASE 73 U/L (55-170); GLUCOSE 103 mg/dL (75-110); POTASSIUM 3.8 mmol/L (3.6-5.0); SODIUM 148.1 mmol/L (137-145); TOTAL PROTEIN 6.6 g/dL (6.3-8.2)
[2017-06-27 11:58] LABS: CREATINE KINASE MB 2.29 ng/mL (<4.55); TROPONIN I 0.02 ng/mL
--- NOTE | 2017-06-27 12:03 | RADIOLOGY REPORT (SQ) ---
EXAM DESCRIPTION: CT HEAD WITHOUT COMPLETED DATE/TIME: 06/27/2017 11:55 am REASON FOR STUDY: incontinence COMPARISON: 05/04/2017. TECHNIQUE: Axial images acquired through the brain without intravenous contrast. Images reviewed wi th bone, brain and subdural windows. Additional sagittal and coronal reconstructions were generated. Images stored on PACS. All CT scanners at this facility use dose modulation, iterative reconstruction, and/or weight based d osing when appropriate to reduce radiation dose to as low as reasonably achievable (ALARA). [facility]: Dose Right [facility]: CareDose [facility]: Dose Right [facility]: Teradose 4D [facility]: Smart [employer] RADIATION DOSE: CT Rad equipment meets quality standard of care and radiation dose reduction techniq ues were employed. CTDIvol: 53.2 mGy. DLP: 964 mGy-cm. mGy. LIMITATIONS: None. FINDINGS: VENTRICLES: Prominent. CEREBRUM: No masses. No hemorrhage. No midline shift. Areas of low density in the white matter mos t likely due to chronic micro-vascular ischemic change. No evidence for acute infarction. CEREBELLUM: No masses. No hemorrhage. No alteration of density. No evidence for acute infarction. EXTRAAXIAL SPACES: Mild age-related involutional change. No fluid collections. No masses. ORBITS AND GLOBE: No intra- or extraconal masses. Normal contour of globe without masses. CALVARIUM: No fracture. PARANASAL SINUSES: No fluid or mucosal thickening. SOFT TISSUES: No mass or hematoma. OTHER: No other significant finding. IMPRESSION: MILD CHRONIC CHANGES OF ATROPHY AND MICROVASCULAR ISCHEMIA. NO ACUTE PROCESS. EVIDENCE OF ACUTE STROKE: NO. TECHNICAL DOCUMENTATION: JOB ID: [id number] Quality ID # [id number]: Final reports with documentation of one or more dose reduction techniques (e.g., Au tomated exposure control, adjustment of the mA and/or kV according to patient size, use of iterative reconstruction technique) 2010 [employer]- All Rights Reserved Reading location - IP/workstation name: [email or web address]
--- NOTE | 2017-06-27 12:18 | RADIOLOGY REPORT (SQ) ---
EXAM DESCRIPTION: CHEST 2 VIEWS COMPLETED DATE/TIME: 06/27/2017 12:03 pm REASON FOR STUDY: cough COMPARISON: 05/04/2017. NUMBER OF VIEWS: Two view. TECHNIQUE: Frontal and lateral radiographic views of the chest acquired. LIMITATIONS: None. FINDINGS: LUNGS AND PLEURA: Mild atelectasis/ scarring in the right lung base. No large pleural eff usion. No pneumothorax. MEDIASTINUM AND HILAR STRUCTURES: No masses. No contour abnormalities. HEART AND VASCULAR STRUCTURES: Heart enlarged without failure. Aorta normal for age. BONES: No acute findings. HARDWARE: None in the chest. OTHER: No other significant finding. IMPRESSION: CARDIOMEGALY. MILD ATELECTASIS/ SCARRING IN THE RIGHT LUNG BASE. TECHNICAL DOCUMENTATION: JOB ID: [id number] [employer]- All Rights Reserved Reading location - IP/workstation name: [email or web address]
[2017-06-27 13:30] VITALS: BP 161/72
--- NOTE | 2017-06-27 20:24 | XCELERA REPORT ---
[address] [address] Lower Extremity Venous Evaluation Name: RAMILA JARAMILLO Age: 62 yrs Gender: Male : 1955 Patient Status: Emergency Patient Location: ER Study Date: 06/27/2017 12:46 PM Procedure: Color flow and duplex imaging of the veins of the left lower extremity as well as the right Common Femoral vein. Reason For Study: rle swelling Ordering Physician: OSCAR LLANES Performed By: Diallo Haas Right Sided Venous Evaluation The right common femoral vein is fully compressible. Spontaneous and phasic flow is present in the right common femoral vein. Left Sided Venous Evaluation Normal vessel filling wall to wall, compression and augmentation as well as Colour flow down to the infrageniculate veins. Interpretation Summary No duplex evidence of DVT or obstruction in the left lower extremity nor in the right Common Femoral vein. : OSCAR LLANES [place]
--- NOTE | 2017-06-27 20:49 | EKG REPORT ---
SEVERITY:- ABNORMAL ECG - SINUS RHYTHM MULTIPLE ATRIAL PREMATURE COMPLEXES RBBB AND LAFB LEFT VENTRICULAR HYPERTROPHY : Confirmed by: Surekha Negrete 27-Jun-2017 17:48:37
== END 2017-06-27 13:48 | disposition home or self-care (01) ==
LOC: ER 10:16
DX: N39.0 Urinary tract infection, site not specified (principal); R32 Unspecified urinary incontinence; R60.0 Localized edema; I45.10 Unspecified right bundle-branch block; F17.210 Nicotine dependence, cigarettes, uncomplicated; I10 Essential (primary) hypertension; Z86.73 Personal history of transient ischemic attack (TIA), and cerebral infarction without residual deficits
CPT/HCPCS: 36415; 70450; 71046; 80053; 82550; 82553; 83880; 84484; 85025; 93005; 93010; 93971; 99284

== ENCOUNTER 2017-07-07 09:34 | Inpatient (IN) | payer MEDICAID ==
[2017-07-07] MEDS ORDERED: PIPERACILLIN/TAZOBACTAM 4.5 GM VIAL IV ONE (10:20)
[2017-07-07] MEDS ORDERED: NORMAL SALINE 1000 ML 1,000 ML IV ONE (10:20)
--- NOTE | 2017-07-07 10:24 | ER Document Report ---
ED Medical Screen (RME) - General Chief Complaint: Altered Mental Status Stated Complaint: PSYCH EVAL Time Seen by Provider: 07/07/17 10:20 Notes: 62 years old male was brought in today because of change of mentation more lethargic since last evening which progressed.. Prior to that he was able to walk walk around doing his activities. The caretakers did not notice any fever chills cough or difficulty in breathing. One time he complain of abdominal pain. But he had denied that for us. Denies any dysuria frequency urgency. I have greeted and performed a rapid initial assessment of this patient. A comprehensive ED assessment and evaluation of the patient, analysis of test results and completion of the medical decision making process will be conducted by additional ED providers. PHYSICAL EXAMINATION: GENERAL: Moderate moderate discomfort seems to be in general weakness. HEAD: Atraumatic, normocephalic. EYES: Pupils equal round extraocular movements intact, conjunctiva are normal. ENT: Nares patent NECK: Normal range of motion LUNGS: No respiratory distress, lungs clear no rales or wheezing Abdomen-soft nontender. Musculoskeletal: Normal range of motion NEUROLOGICAL: Normal speech, normal gait. PSYCH: Normal mood, normal affect. SKin Loss of turgor and dry skin, left index finger has a opacity over surrounded by erythema. TRAVEL OUTSIDE OF THE [place] IN LAST 30 DAYS: No - Related Data Allergies/Adverse Reactions: No Known Allergies Allergy (Verified 06/27/17 10:16) Past Medical History - Past Medical History Cardiac Medical History: Reports: Hx Hypercholesterolemia, Hx Hypertension - Takes Minipress, caregiver says its for his mental health Denies: Hx Coronary Artery Disease, Hx Heart Attack Pulmonary Medical History: Reports: Hx Pneumonia Denies: Hx Asthma, Hx Bronchitis, Hx COPD Neurological Medical History: Reports: Hx Cerebrovascular Accident - 2016, unsteady gait-uses walker , slurred speech , Hx Seizures Endocrine Medical History: Reports: Hx Hyperthyroidism, Hx Hypothyroidism Renal/ Medical History: Denies: Hx Peritoneal Dialysis Musculoskeltal Medical History: Reports Hx Arthritis - c/o leg and back pain , Reports Hx Muscle Spasm, Reports Hx Musculoskeletal Deformity, Reports Hx Musculoskeletal Trauma Psychiatric Medical History: Reports: Hx Anxiety, Hx Bipolar Disorder, Hx Depression, Hx Schizoaffective Disorder, Hx Schizophrenia - PARANOID Past Surgical History: Reports: Hx Orthopedic Surgery - Immunizations Immunizations up to date: Yes Hx Diphtheria, Pertussis, Tetanus Vaccination: No Physical Exam - Vital signs Vitals: Temp Pulse Resp BP Pulse Ox 97.8 F 53 L 18 156/76 H 97 07/07/17 09:39 07/07/17 09:39 07/07/17 09:39 07/07/17 09:39 07/07/17 09:39 Course - Vital Signs Vital signs: Temp Pulse Resp BP Pulse Ox 97.8 F 53 L 18 156/76 H 97 07/07/17 09:39 07/07/17 09:39 07/07/17 09:39 07/07/17 09:39 07/07/17 09:39
--- NOTE | 2017-07-07 10:58 | RADIOLOGY REPORT (SQ) ---
EXAM DESCRIPTION: CHEST SINGLE VIEW COMPLETED DATE/TIME: 07/07/2017 10:42 am REASON FOR STUDY: Cough COMPARISON: Two-view chest 06/27/2017, 04/09/2017 EXAM PARAMETERS: NUMBER OF VIEWS: One view. TECHNIQUE: Single frontal radiographic view of the chest acquired. RADIATION DOSE: NA LIMITATIONS: None. FINDINGS: LUNGS AND PLEURA: Bibasilar atelectasis is present. No fluffy perihilar infiltrates worrisome for edema or pneumonia. No pleural effusion. No pneumothorax. MEDIASTINUM AND HILAR STRUCTURES: No masses. Contour normal. HEART AND VASCULAR STRUCTURES: Stable mild cardiomegaly. Normal vasculature. BONES: No acute findings. Old ossification right coracoclavicular ligament HARDWARE: None in the chest. OTHER: No other significant finding. IMPRESSION: Bibasilar atelectasis TECHNICAL DOCUMENTATION: JOB ID: [id number] [employer]- All Rights Reserved Reading location - IP/workstation name: [email or web address]
--- NOTE | 2017-07-07 11:04 | ER Document Report ---
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 IN LAST 30 DAYS: No <KENDY MCCABE - Last Filed: 07/07/17 12:15> <WILLIEMICHELLE - Last Filed: 07/07/17 13:23> - General Chief Complaint: Altered Mental Status Stated Complaint: PSYCH EVAL Time Seen by Provider: 07/07/17 10:20 Notes: 62 y.o male with a PMHx of HLD, HTN, CVA in 2016, dementia, chronic weakness and Schizophrenia presents to the ED with AMS of onset last night that has since been progressing. Caretakers report that 07/01/17, he was lethargic and they had stopped his medications but that morning he was fine all the way up until last night when he started to ramble and was not making sense. Caretakers report that they took him to the family clinic who referred them to the ED today. (KENDY MCCABE) - Related Data Allergies/Adverse Reactions: No Known Allergies Allergy (Verified 07/07/17 10:46) Past Medical History - General Information source: [facility] Records - Social History Smoking Status: Current Every Day Smoker Chew tobacco use (# tins/day): No Frequency of alcohol use: None Drug Abuse: None Family History: None, Reviewed & Not Pertinent Patient has suicidal ideation: No Patient has homicidal ideation: No - Past Medical History Cardiac Medical History: Reports: Hx Hypercholesterolemia, Hx Hypertension - Takes Minipress, caregiver says its for his mental health Denies: Hx Coronary Artery Disease, Hx Heart Attack Pulmonary Medical History: Reports: Hx Pneumonia Denies: Hx Asthma, Hx Bronchitis, Hx COPD Neurological Medical History: Reports: Hx Cerebrovascular Accident - 2016, unsteady gait-uses walker , slurred speech , Hx Seizures Endocrine Medical History: Reports: Hx Hyperthyroidism, Hx Hypothyroidism Renal/ Medical History: Denies: Hx Peritoneal Dialysis Musculoskeltal Medical History: Reports Hx Arthritis - c/o leg and back pain , Reports Hx Muscle Spasm, Reports Hx Musculoskeletal Deformity, Reports Hx Musculoskeletal Trauma Psychiatric Medical History: Reports: Hx Anxiety, Hx Bipolar Disorder, Hx Depression, Hx Schizoaffective Disorder, Hx Schizophrenia - PARANOID Past Surgical History: Reports: Hx Orthopedic Surgery - Immunizations Immunizations up to date: Yes Hx Diphtheria, Pertussis, Tetanus Vaccination: No <KENDY MCCABE - Last Filed: 07/07/17 12:15> Review of Systems - Review of Systems Constitutional: No symptoms reported EENT: No symptoms reported Cardiovascular: No symptoms reported Respiratory: No symptoms reported Gastrointestinal: No symptoms reported Genitourinary: No symptoms reported Male Genitourinary: No symptoms reported Musculoskeletal: No symptoms reported Skin: No symptoms reported Hematologic/Lymphatic: No symptoms reported Neurological/Psychological: See HPI, Other - AMS; lethargic and rambling, not making sense -: Yes All other systems reviewed and negative <KENDY MCCABE - Last Filed: 07/07/17 12:15> Physical Exam <KENDY MCCABE - Last Filed: 07/07/17 12:15> <MICHELLE TAPIA - Last Filed: 07/07/17 13:23> - Vital signs Vitals: Temp Pulse Resp BP Pulse Ox 97.8 F 53 L 18 156/76 H 97 07/07/17 09:39 07/07/17 09:39 07/07/17 09:39 07/07/17 09:39 07/07/17 09:39 - Notes Notes: Physical Exam: General: Alert and oriented. Very warm to touch. HEENT: Normocephalic. Atraumatic. PERRL. Extraocular movements intact. Oropharynx clear. Neck: Supple. Non-tender. Respiratory: No respiratory distress. Clear and equal breath sounds bilaterally. Cardiovascular: Regular rate and rhythm. Abdominal: Obese. Soft, non-tender. No distension. Normal Bowel Sounds. Back: Non-tender. No deformity or step off. Extremities: Moves all four extremities. Upper extremities: Normal inspection. Normal ROM. Lower extremities: Normal inspection. No edema. Normal ROM. Neurological: Confused and demented. Yelling and cursing at nurses and others to get out of his arm while starting an IV. (KENDY MCCABE) Course - Laboratory Result Diagrams: 07/07/17 11:04 07/07/17 11:04 <KENDY MCCABE - Last Filed: 07/07/17 12:15> - Laboratory Result Diagrams: 07/07/17 11:04 07/07/17 11:04 - Diagnostic Test Radiology reviewed: Image reviewed, Reports reviewed - Bibasilar atelectasis - EKG Interpretation by Me EKG shows normal: Sinus rhythm, Parish, Intervals, QRS Complexes, ST-T Waves Rate: Normal - 75 Rhythm: APC's - Supraventricular bigeminy Parish/QRS: RBBB, LAHB/LAFB When compared to previous EKG there are: No significant change - Consults Dr. Pablo Time consulted: 12:55 Consulted provider: will come to ER <MICHELLE TAPIA - Last Filed: 07/07/17 13:23> - Vital Signs Vital signs: Temp Pulse Resp BP Pulse Ox 99.6 F 53 L 19 114/92 H 94 07/07/17 10:53 07/07/17 09:39 07/07/17 13:02 07/07/17 13:02 07/07/17 13:02 - Laboratory Laboratory results interpreted by mt: 07/07/17 07/07/17 07/07/17 11:04 11:04 12:00 WBC 22.6 H RBC 3.91 L Hgb 12.0 L Hct 36.4 L RDW 15.3 H Plt Count 72 L Lymphocytes % (Manual) 7 L Abs Neuts (Manual) 18.5 H Abs Monocytes (Manual) 2.5 H Sodium 149.9 H Chloride 109 H BUN 29 H Creatinine 1.39 H Est GFR (Non-Af Amer) 51 L AST 12 L Urine Protein 100 H Urine Ketones TRACE H Urine Blood SMALL H Urine Urobilinogen 2.0 H Ur Leukocyte Esterase LARGE H Discharge <KENDY MCCABE - Last Filed: 07/07/17 12:15> - Discharge Admitting Provider: Hospitalist Unit Admitted: Telemetry <WILLIEMICHELLE - Last Filed: 07/07/17 13:23> - Discharge Clinical Impression: Urinary tract infection Qualifiers: Urinary tract infection type: site unspecified Hematuria presence: with hematuria Qualified Code(s): N39.0 - Urinary tract infection, site not specified Leukocytosis Qualifiers: Leukocytosis type: bandemia Qualified Code(s): D72.825 - Bandemia Fever Qualifiers: Fever type: unspecified Qualified Code(s): R50.9 - Fever, unspecified Altered mental status Qualifiers: Altered mental status type: unspecified Qualified Code(s): R41.82 - Altered mental status, unspecified Condition: Stable Disposition: ADMITTED INPATIENT Referrals: JOSÉ LLANOS DO [Primary Care Provider] - Follow up as needed Scribe Attestation: 07/07/17 12:39 I personally performed the services described in the documentation, reviewed and edited the documentation which was dictated to the scribe in my presence, and it accurately records my words and actions. (MICHELLE TAPIA) Scribe Documentation - Scribe Written by Willow:: Willow Varela [id number] 07/07/17 acting as scribe for :: Willie <KENDY MCCABE - Last Filed: 07/07/17 12:15>
[2017-07-07 11:31] LABS: VENOUS BLOOD BASE EXCESS 1.4 mmol/L; VENOUS BLOOD HCO3 27.7 mmol/L (20-32); VENOUS BLOOD PCO2 49.6 mmHg (35-63); VENOUS BLOOD PH 7.37 (7.30-7.42)
[2017-07-07 11:39] LABS: INTERNATIONAL RATION (INR) 1.03
[2017-07-07 11:40] LABS: HEMATOCRIT 36.4 % (37.9-51.0); MEAN CORPUSCULAR HEMOGLOBIN 30.7 pg (27.0-33.4); MEAN CORPUSCULAR VOLUME 93 fl (80-97); RED BLOOD COUNT 3.91 10^6/uL (4.35-5.55); RED CELL DISTRIBUTION WIDTH 15.3 % (11.5-14.0); WHITE BLOOD COUNT 22.6 10^3/uL (4.0-10.5)
[2017-07-07 11:53] LABS: ALANINE AMINOTRANSFERASE 25 U/L (21-72); ALBUMIN 3.6 g/dL (3.5-5.0); ALKALINE PHOSPHATASE 43 U/L (38-126); ANION GAP 13 (5-19); ASPARTATE AMINO TRANSFERASE 12 U/L (17-59); BILIRUBIN,DIRECT 0.4 mg/dL (0.0-0.4); BILIRUBIN,TOTAL 0.4 mg/dL (0.2-1.3); BLOOD UREA NITROGEN 29 mg/dL (7-20); CALCIUM 9.4 mg/dL (8.4-10.2); CARBON DIOXIDE 28 mmol/L (22-30); CHLORIDE 109 mmol/L (98-107); GLUCOSE 107 mg/dL (75-110); POTASSIUM 4.4 mmol/L (3.6-5.0); SODIUM 149.9 mmol/L (137-145); TOTAL PROTEIN 6.8 g/dL (6.3-8.2)
[2017-07-07 12:05] LABS: ABSOLUTE LYMPHOCYTES# (MANUAL) 1.6 10^3/uL (0.5-4.7); ABSOLUTE MONOCYTES # (MANUAL) 2.5 10^3/uL (0.1-1.4); ABSOLUTE NEUTROPHILS# (MANUAL) 18.5 10^3/uL (1.7-8.2); BAND NEUTROPHILS % (MANUAL) 5 % (3-5); BASOPHILS % (MANUAL) 0 % (0-2); EOSINOPHILS % (MANUAL) 0 % (0-6); LYMPHOCYTES % (MANUAL) 7 % (13-45); MONOCYTES % (MANUAL) 11 % (3-13); SEGMENTED NEUTROPHILS % (MAN) 77 % (42-78); TOTAL CELLS COUNTED 100
[2017-07-07 12:13] LABS: ANISOCYTOSIS SLIGHT; OVALOCYTES 1+; PLATELET COMMENT DECREASED; PLATELET COUNT 72 10^3/uL (150-450); POIKILOCYTOSIS 1+
[2017-07-07 12:36] LABS: APPEARANCE,URINE SLIGHTLY-CLOUDY; BILIRUBIN,URINE NEGATIVE (NEGATIVE); COLOR,URINE YELLOW; GLUCOSE, URINE NEGATIVE (NEGATIVE); KETONES,URINE TRACE mg/dL (NEGATIVE); LEUKOCYTE ESTERASE,URINE LARGE (NEGATIVE); NITRITE,URINE NEGATIVE (NEGATIVE); PROTEIN,URINE 100 mg/dL (NEGATIVE); URINE SPECIFIC GRAVITY 1.023
[2017-07-07] MEDS ORDERED: PROMETHAZINE HCL 25 MG TABLET PO PRN (13:54)
--- NOTE | 2017-07-07 14:11 | PDOC H&P ---
History of Present Illness Admission Date/PCP: 07/07/17 13:53 JOSÉ LLANOS DO History of Present Illness: RAMILA JARAMILLO is a 62 year old male patient with multiple comorbidities including HLD, HTN, history of CVA in 2016, dementia, bipolar disorder and schizophrenia brought for decreased activity and altered mental status. Since patient has underlying dementia and cognitive impairment is not source of history and there was no family members during my encounter. Brief history is obtained from the ER attending note. His physician in private practice reports that Thursday ,07/01/17 he was lethargic and he had stopped his medications but that morning he was fine all the way up until last night when he started to ramble and was not making sense. Patient was taken today to his primary care physician office who referred him to ED. His initial blood workup shows significant cytosis of 23,000 and hyponatremia with sodium of 150 and acute kidney injury with creatinine of 1.39, thrombocytopenia 72 and his urinalysis positive for large leukocyte esterase and WBC. Detailed history and review of systems unobtainable. Past Medical History Cardiac Medical History: Reports: Hyperlipidema, Hypertension - Takes Minipress , caregiver says its for his mental health Denies: Coronary Artery Disease, Myocardial Infarction Pulmonary Medical History: Reports: Pneumonia Denies: Asthma, Bronchitis, Chronic Obstructive Pulmonary Disease (COPD) Neurological Medical History: Reports: Seizures Endocrine Medical History: Reports: Hyperthyroidism, Hypothyroidism Musculoskeltal Medical History: Reports: Arthritis - c/o leg and back pain Psychiatric Medical History: Reports: Bipolar Disorder, Depression, Schizoaffective Disorder Hematology: Denies: Anemia Past Surgical History Past Surgical History: Reports: Orthopedic Surgery Social History Smoking Status: Current Every Day Smoker Frequency of Alcohol Use: None Hx Recreational Drug Use: No Drugs: None Hx Prescription Drug Abuse: No - Advance Directive Resuscitation Status: Full Code Family History Family History: None, Reviewed & Not Pertinent Parental Family History Reviewed: Yes Children Family History Reviewed: Yes Sibling(s) Family History Reviewed.: Yes Medication/Allergy Home Medications: Calcium Carbonate/Vitamin D3 [Calcium 600 + Vit D 400 Tablet] 1 tab PO BID 11/09 Prazosin HCl [Minipress] 5 mg PO QHS 11/10/15 Ferrous Sulfate [Ferrous Sulfate] 325 mg PO DAILY 04/25/16 Lansoprazole [Prevacid 24Hr] 15 mg PO BIDACBS 04/25/16 Olanzapine [Olanzapine] 15 mg PO BID MDD may give both at 199904/25/16 Pravastatin Sodium [Pravastatin Sodium] 10 mg PO QHS 04/25/16 Levothyroxine Sodium [Synthroid 0.075 mg Tablet] 0.075 mg PO Q6AM 09/26/16 Tamsulosin HCl [Flomax 0.4 mg Cap.sr] 0.4 mg PO DAILY 09/26/16 Benztropine Mesylate [Cogentin 1 mg Tablet] 2 mg PO BID 06/27/17 Divalproex Sodium [Divalproex Sodium ER] 1,500 mg PO QHS 06/27/17 Ibuprofen [Motrin 800 mg Tablet] 800 mg PO BID 06/27/17 Sulfamethoxazole/Trimethoprim [Bactrim Ds Tablet] 1 each PO BID #14 tablet 06/27 Allergies/Adverse Reactions: No Known Allergies Allergy (Verified 07/07/17 10:46) Review of Systems ROS unobtainable: Due to mental status Physical Exam Vital Signs: Temp Pulse Resp BP Pulse Ox 99.6 F 53 L 19 114/92 H 94 07/07/17 10:53 07/07/17 09:39 07/07/17 13:02 07/07/17 13:02 07/07/17 13:02 General appearance: PRESENT: no acute distress, well-developed, well-nourished Head exam: PRESENT: atraumatic, normocephalic Eye exam: PRESENT: conjunctiva pink, EOMI, PERRLA. ABSENT: scleral icterus Neck exam: ABSENT: carotid bruit, JVD, lymphadenopathy, thyromegaly Respiratory exam: PRESENT: clear to auscultation kenneth Cardiovascular exam: PRESENT: RRR. ABSENT: diastolic murmur, rubs, systolic murmur GI/Abdominal exam: PRESENT: normal bowel sounds, soft. ABSENT: distended, guarding, mass, organolmegaly, rebound, tenderness Neurological exam: PRESENT: alert, awake Psychiatric exam: PRESENT: depressed Results Impressions: Chest X-Ray 07/07/17 10:20 IMPRESSION: Bibasilar atelectasis Assessment & Plan - Diagnosis (1) Acute kidney injury Is this a current diagnosis for this admission?: Yes Plan: It seems tomorrow for prerenal azotemia. We will cautiously hydrate him. Avoid nephrotoxic agents Renal function test in a.m. (2) Altered mental status Qualifiers: Altered mental status type: disorientation Qualified Code(s): R41.0 - Disorientation, unspecified Is this a current diagnosis for this admission?: Yes Plan: Since patient has underlying dementiadementia and schizophrenia, this superimposed disorientation is due to metabolic conditions. (3) Leukocytosis Qualifiers: Leukocytosis type: unspecified Qualified Code(s): D72.829 - Elevated white blood cell count, unspecified Is this a current diagnosis for this admission?: Yes Plan: We will closely monitor his white cell count and will treat the underlying infection. (4) UTI (urinary tract infection) Qualifiers: Indwelling urinary catheter type: unspecified Is this a current diagnosis for this admission?: Yes Plan: Patient has been started on cefepime - Time Time Spent: 30 to 50 Minutes - Inpatient Certification Medical Necessity: Need Close Monitoring Due to Risk of Patient Decompensation, Need for IV Antibiotics
[2017-07-07] MEDS: NORMAL SALINE 1000 ML 1,000 ML IV PRN (17:30)
[2017-07-07] MEDS ORDERED: LORAZEPAM INJ 2 MG/1 ML VIAL ONE (20:46)
[2017-07-07] MEDS ORDERED: LORAZEPAM INJ 2 MG/1 ML VIAL IV ONE (21:00)
[2017-07-07] MEDS: CEFEPIME 2 GM/D5W RTU 2 GM/50 ML RTUPB IV SCH (22:32)
--- NOTE | 2017-07-07 23:35 | EKG REPORT ---
SEVERITY:- ABNORMAL ECG - SINUS RHYTHM SUPRAVENTRICULAR BIGEMINY RBBB AND LAFB : Confirmed by: Surekha Negrete 07-Jul-2017 23:35:22
[2017-07-08] MEDS ORDERED: HALOPERIDOL LACTATE INJ 5 MG/1 ML VIAL ONE (02:22)
[2017-07-08] MEDS ORDERED: HALOPERIDOL LACTATE INJ 5 MG/1 ML VIAL IV ONE (02:30)
[2017-07-08] MEDS ORDERED: LORAZEPAM INJ 2 MG/1 ML VIAL ONE (04:55)
[2017-07-08] MEDS ORDERED: LORAZEPAM INJ 2 MG/1 ML VIAL IV ONE (05:15)
[2017-07-08] MEDS ORDERED: LANSOPRAZOLE 30 MG TAB.RAP.DR PO SCH (06:00)
[2017-07-08 06:34] LABS: ABSOLUTE LYMPHOCYTES (AUTO) 1.9 10^3/uL (0.5-4.7); ABSOLUTE MONOCYTES (AUTO) 1.1 10^3/uL (0.1-1.4); ABSOLUTE NEUT (AUTO) 12.6 10^3/uL (1.7-8.2); BASOPHILS % (AUTO) 0.1 % (0-2); EOSINOPHILS % (AUTO) 0.1 % (0-6); HEMATOCRIT 31.1 % (37.9-51.0); HEMOGLOBIN 10.2 g/dL (13.5-17.0); LYMPHOCYTES % (AUTO) 12.4 % (13-45); MEAN CORPUSCULAR HEMOGLOBIN 30.6 pg (27.0-33.4); MEAN CORPUSCULAR HGB CONC 32.9 g/dL (32.0-36.0); MEAN CORPUSCULAR VOLUME 93 fl (80-97); MONOCYTES % (AUTO) 7.2 % (3-13); RED BLOOD COUNT 3.34 10^6/uL (4.35-5.55); RED CELL DISTRIBUTION WIDTH 14.9 % (11.5-14.0); SEGMENTED NEUTROPHILS % (AUTO) 80.2 % (42-78); TOTAL CELLS COUNTED % (AUTO) 100 %; WHITE BLOOD COUNT 15.7 10^3/uL (4.0-10.5)
[2017-07-08 06:38] LABS: PLATELET COUNT 57 10^3/uL (150-450)
[2017-07-08 06:46] LABS: ANION GAP 10 (5-19); BLOOD UREA NITROGEN 20 mg/dL (7-20); CALCIUM 8.3 mg/dL (8.4-10.2); CARBON DIOXIDE 23 mmol/L (22-30); CHLORIDE 113 mmol/L (98-107); GLUCOSE 95 mg/dL (75-110); POTASSIUM 3.6 mmol/L (3.6-5.0); SODIUM 145.9 mmol/L (137-145)
[2017-07-08] MEDS: CEFEPIME 2 GM/D5W RTU 2 GM/50 ML RTUPB IV SCH ×2 (11:25→21:30)
[2017-07-08] MEDS: NORMAL SALINE 1000 ML 1,000 ML IV PRN ×2 (12:49→21:29)
[2017-07-08] MEDS: ACETAMINOPHEN 325 MG TABLET PO PRN (13:19)
[2017-07-08] MEDS: LORAZEPAM INJ 2 MG/1 ML VIAL IV PRN ×2 (13:35→17:07)
--- NOTE | 2017-07-08 13:49 | PDOC PROGRESS REPORT ---
Subjective Progress Note for:: 07/08/17 Subjective:: I seen patient lying in bed still is confused I do not know whether this is his baseline and no family member during my encounter. He is not in pain or distress. Reason For Visit: HYPERNATREMIA,ACUTE KIDNEY INJURY,LEUKOCYTOSIS, Physical Exam Vital Signs: Temp Pulse Resp BP Pulse Ox 99.6 F 57 L 22 H 182/69 H 97 07/08/17 12:00 07/08/17 12:00 07/08/17 12:00 07/08/17 12:00 07/08/17 12:00 Intake & Output 07/07/17 07/08/17 07/09/17 06:59 06:59 06:59 Intake Total 2445 Balance 2445 Weight 93.2 kg General appearance: PRESENT: no acute distress Neck exam: ABSENT: carotid bruit, JVD, lymphadenopathy, thyromegaly Respiratory exam: PRESENT: clear to auscultation kenneth. ABSENT: rales, rhonchi, wheezes Cardiovascular exam: PRESENT: RRR. ABSENT: diastolic murmur, rubs, systolic murmur GI/Abdominal exam: PRESENT: normal bowel sounds, soft. ABSENT: distended, guarding, mass, organolmegaly, rebound, tenderness Results Laboratory Results: 07/08/17 05:52 07/08/17 05:52 07/08/17 07/08/17 05:52 05:52 WBC 15.7 H RBC 3.34 L Hgb 10.2 L Hct 31.1 L MCV 93 MCH 30.6 MCHC 32.9 RDW 14.9 H Plt Count 57 L Seg Neutrophils % 80.2 H Lymphocytes % 12.4 L Monocytes % 7.2 Eosinophils % 0.1 Basophils % 0.1 Absolute Neutrophils 12.6 H Absolute Lymphocytes 1.9 Absolute Monocytes 1.1 Absolute Eosinophils 0.0 Absolute Basophils 0.0 Sodium 145.9 H Potassium 3.6 Chloride 113 H Carbon Dioxide 23 Anion Gap 10 BUN 20 Creatinine 0.91 Est GFR ( Amer) > 60 Est GFR (Non-Af Amer) > 60 Glucose 95 Calcium 8.3 L Impressions: Chest X-Ray 07/07/17 10:20 IMPRESSION: Bibasilar atelectasis Assessment & Plan - Diagnosis (1) Acute kidney injury Is this a current diagnosis for this admission?: Yes Plan: Improving his creatinine is trended down from 1.78 to 0.91 (2) Altered mental status Qualifiers: Altered mental status type: disorientation Qualified Code(s): R41.0 - Disorientation, unspecified Is this a current diagnosis for this admission?: Yes Plan: Stable (3) Leukocytosis Qualifiers: Leukocytosis type: unspecified Qualified Code(s): D72.829 - Elevated white blood cell count, unspecified Is this a current diagnosis for this admission?: Yes Plan: We will closely monitor his white cell count and will treat the underlying infection. His white cell count is improving yesterday it was 26,000 today it is 15,000. His lactic acid is negative (4) UTI (urinary tract infection) Qualifiers: Indwelling urinary catheter type: unspecified Is this a current diagnosis for this admission?: Yes Plan: Continue cefepime (5) Schizophrenia Is this a current diagnosis for this admission?: Yes Plan: When I reconciled his home medication I did not see any antipsychotic medication.
[2017-07-08] MEDS: HYDRALAZINE HCL 50 MG TABLET PO SCH ×2 (15:22→21:30)
[2017-07-08] MEDS: TAMSULOSIN HCL 0.4 MG CAP.SR.24H PO SCH (15:23)
--- NOTE | 2017-07-08 15:25 | Physician Advisory Note ---
Physician Advisor ProgressNote .: Pursuant to the plan for [facility], I have reviewed the medical record for this patient. Physician Advisor Statement: Please consider documenting, if you agree: 1. "Acute hypernatremia, suspect due to " 2. Specify type of altered mental status (AMS) present: A. Metabolic Encephalopathy due to = AMS due to acute or chronic medical disease state, such as systemic metabolic or intracranial process that is usually reversible when the underlying cause is corrected. - Causes include fever, infection, dehydration, acidosis, sepsis, hypoxia, electrolyte imbalance, B. Toxic Encephalopathy due to =AMS due to drug, poison, or toxin. Usually reversible. C. Acute Delirium due to =nonspecific disorientation/behavioral problem with a cause that can be psychiatric, encephalopathic, or intracranial. May show confusion, disorientation, agitation, inattention, . *If documentation does not specify the underlying cause of delirium, the ICD-10 coding classification attributes it to a psychiatric origin (such as schizophrenia, jered, or rapid progression of dementia), with a correspondingly lower severity of illness, than if there is encephalopathy. - Cause examples: due to Acute Metabolic Encephalopathy, due to __ due to dementia with sundowning due to , superimposed on dementia, evidenced by _ (which is different than baseline, which is ) Thanks! CK
[2017-07-08] MEDS: OLANZAPINE 5 MG TABLET PO SCH (16:51)
[2017-07-08] MEDS: METOPROLOL TARTRATE 25 MG TABLET PO SCH (16:52)
[2017-07-08] MEDS ORDERED: HYDRALAZINE HCL INJ/PF 20 MG/1 ML SDV IV ONE (17:00)
[2017-07-08] MEDS ORDERED: OLANZAPINE 15 MG PO SCH (18:00)
[2017-07-08] MEDS: BENZTROPINE MESYLATE 1 MG TABLET PO SCH (21:30)
[2017-07-08] MEDS: DIVALPROEX SODIUM 500 MG TAB.SR.24H PO SCH (21:30)
[2017-07-08] MEDS: CALCIUM CARBONATE 250 MG/VITAMIN D3 125 UNIT TABLET PO SCH (21:30)
[2017-07-08] MEDS ORDERED: (PENDING PHARMACY ID) (Pravastatin Sodium [Pravastatin Sodium] 10 MG) PO SCH (22:00)
[2017-07-08] MEDS ORDERED: (PENDING PHARMACY ID) (Prazosin Hcl [Minipress] 5 MG) PO SCH (22:00)
[2017-07-08] MEDS ORDERED: (PENDING PHARMACY ID) (Calcium Carbonate/Vitamin D3 [Calcium 600 + Vit D 400 Tablet] 1 TAB PO SCH (22:00)
[2017-07-09] MEDS: LORAZEPAM INJ 2 MG/1 ML VIAL IV PRN ×4 (00:31→21:49)
[2017-07-09] MEDS: METOPROLOL TARTRATE 25 MG TABLET PO SCH ×2 (05:28→17:46)
[2017-07-09] MEDS: HYDRALAZINE HCL 50 MG TABLET PO SCH ×3 (05:28→21:49)
[2017-07-09] MEDS: LANSOPRAZOLE 30 MG TAB.RAP.DR PO SCH (05:28)
[2017-07-09] MEDS: LEVOTHYROXINE SODIUM 0.075 MG TABLET PO SCH (05:29)
[2017-07-09 06:34] LABS: ANION GAP 14 (5-19); BLOOD UREA NITROGEN 18 mg/dL (7-20); CALCIUM 9.2 mg/dL (8.4-10.2); CARBON DIOXIDE 21 mmol/L (22-30); CHLORIDE 110 mmol/L (98-107); GLUCOSE 155 mg/dL (75-110); POTASSIUM 3.8 mmol/L (3.6-5.0); SODIUM 144.5 mmol/L (137-145)
[2017-07-09 07:02] LABS: ABSOLUTE LYMPHOCYTES (AUTO) 1.6 10^3/uL (0.5-4.7); ABSOLUTE MONOCYTES (AUTO) 1.2 10^3/uL (0.1-1.4); ABSOLUTE NEUT (AUTO) 16.2 10^3/uL (1.7-8.2); BASOPHILS % (AUTO) 0.2 % (0-2); EOSINOPHILS % (AUTO) 0.1 % (0-6); HEMATOCRIT 38.1 % (37.9-51.0); LYMPHOCYTES % (AUTO) 8.1 % (13-45); MEAN CORPUSCULAR HGB CONC 33.7 g/dL (32.0-36.0); MEAN CORPUSCULAR VOLUME 92 fl (80-97); MONOCYTES % (AUTO) 6.4 % (3-13); RED BLOOD COUNT 4.15 10^6/uL (4.35-5.55); SEGMENTED NEUTROPHILS % (AUTO) 85.2 % (42-78); TOTAL CELLS COUNTED % (AUTO) 100 %; WHITE BLOOD COUNT 19.1 10^3/uL (4.0-10.5)
[2017-07-09 07:05] LABS: HEMOGLOBIN 12.8 g/dL (13.5-17.0); PLATELET COUNT 88 10^3/uL (150-450)
[2017-07-09] MEDS: NORMAL SALINE 1000 ML 1,000 ML IV PRN (09:02)
[2017-07-09] MEDS: OLANZAPINE 5 MG TABLET PO SCH ×2 (09:06→17:47)
[2017-07-09] MEDS: CALCIUM CARBONATE 250 MG/VITAMIN D3 125 UNIT TABLET PO SCH ×2 (09:07→21:49)
[2017-07-09] MEDS: FERROUS SULFATE 325 MG TABLET PO SCH (09:07)
[2017-07-09] MEDS: BENZTROPINE MESYLATE 1 MG TABLET PO SCH ×2 (09:07→21:49)
[2017-07-09] MEDS ORDERED: VANCOMYCIN HCL 0 MG in DEXTROSE 5%-WATER 250 ML IV NR (09:15)
[2017-07-09] MEDS: VANCOMYCIN HCL 750 MG in DEXTROSE 5%-WATER 250 ML IV SCH ×2 (09:58→18:06)
[2017-07-09 12:15] LABS: VENOUS BLOOD BASE EXCESS -2.9 mmol/L; VENOUS BLOOD HCO3 20.1 mmol/L (20-32); VENOUS BLOOD PCO2 30.2 mmHg (35-63); VENOUS BLOOD PH 7.44 (7.30-7.42)
[2017-07-09] MEDS: PIPERACILLIN SODIUM/TAZOBACTAM 4.5 GM in NORMAL SALINE 100 ML IV SCH ×2 (13:03→17:43)
--- NOTE | 2017-07-09 15:18 | PROGRESS NOTE E ---
Progress Note NAME: RAMILA JARAMILLO : 1955 AGE: 62Y DATE: 07/09/2017 ROOM: 428 SUBJECTIVE: The patient was seen earlier today on rounds. The patient was very minimally responsive. Uncertain of the patient's exact baseline, given that he is schizophrenic. The patient has had a low-grade temp. Blood pressures have been on the high side, and the patient has been tremulous at times. Again, uncertain of the patient's exact baseline, and the patient is unable to voice any specific concerns at this time. REVIEW OF SYSTEMS: Unobtainable. MEDICATIONS: Reviewed. OBJECTIVE: GENERAL: The patient is a 62-year-old male, who is not responsive. If you try to arouse the patient, he becomes much more tremulous and appears almost anxious. The patient does not appear to be in respiratory distress. VITAL SIGNS: Temperature is 98.6, pulse 71, respirations 19, blood pressure is 169/90, oxygen saturation 94% on room air. SKIN: Warm and dry. No rashes. He is not diaphoretic. HEENT: Pupils equal, round, reactive to light and accommodation. Conjunctivae are pink. There is no evidence of JVP. CVS: Heart is regular. There is no rub. CHEST: Diminished, symmetrical, unlabored. ABDOMEN: Soft, nontender, nondistended. BACK: No sacral edema. EXTREMITIES: No clubbing, cyanosis or edema. PSYCHIATRIC: Unable to fully assess. DIAGNOSTICS: Lab values are as follows: Hematology obtained on 07/09/2017: WBCs are now 15.1, hemoglobin is 12.8, hematocrit is 38.1, platelet count is 88,000. Chemistry obtained on 07/09/2017: Sodium is 144, potassium 3.8, chloride is 110, carbon dioxide 21. BUN 18, creatinine is 0.3. Glucose 155. Calcium is 9.2. IMPRESSION AND PLAN: 1. GRAM-NEGATIVE JESSICA URINARY TRACT INFECTION. Given that the patient's mental status has not improved and he still has a low-grade temp, will expand the patient's coverage to broad-spectrum and await for culture and sensitivity, and follow. 2. SEPSIS, SECONDARY TO #1. The patient has had slight improvement in platelet count, white count; however, again, will expand antibiotic coverage and follow. 3. ACUTE ENCEPHALOPATHY. Uncertain of the patient's exact baseline; however, given the patient's tremulousness, we will obtain B12, ammonia and follow. 4. SCHIZOPHRENIA. Will continue the patient's home medications. 5. HYPERTENSION. Will resume the patient's home medication. 6. HYPOTHYROIDISM. Will continue levothyroxine. 7. SCHIZOPHRENIA. Will continue the patient's anti-psychotic medications. DISPOSITION: The patient is a FULL CODE. Pending patient's symptomatology and diagnostic findings, will reevaluate as needed. Time spent on this followup, including assessment, plan, physical examination, patient education and review of records, is 35 minutes. DICTATING PHYSICIAN: CLARA JARAMILLO NP [id number] PHY#: [id number] ID: [id number] JOB#: [id number] ACCT: [id number] cc: >
[2017-07-09] MEDS: TAMSULOSIN HCL 0.4 MG CAP.SR.24H PO SCH (17:47)
[2017-07-09] MEDS: LACTULOSE SYRUP 20 GM/30 ML UDCUP PO SCH (17:48)
[2017-07-09] MEDS: DIVALPROEX SODIUM 500 MG TAB.SR.24H PO SCH (21:49)
[2017-07-10] MEDS: PIPERACILLIN SODIUM/TAZOBACTAM 4.5 GM in NORMAL SALINE 100 ML IV SCH ×2 (00:29→05:57)
[2017-07-10] MEDS: VANCOMYCIN HCL 750 MG in DEXTROSE 5%-WATER 250 ML IV SCH (02:23)
[2017-07-10] MEDS: LANSOPRAZOLE 30 MG TAB.RAP.DR PO SCH (05:57)
[2017-07-10] MEDS: METOPROLOL TARTRATE 25 MG TABLET PO SCH ×2 (05:57→18:31)
[2017-07-10] MEDS: HYDRALAZINE HCL 50 MG TABLET PO SCH ×3 (05:57→22:21)
[2017-07-10] MEDS: LEVOTHYROXINE SODIUM 0.075 MG TABLET PO SCH (05:57)
[2017-07-10] MEDS: ACETAMINOPHEN 325 MG TABLET PO PRN ×2 (05:58→15:45)
[2017-07-10 06:34] LABS: ABSOLUTE BASOPHILS # (AUTO) 0.1 10^3/uL (0.0-0.2); ABSOLUTE LYMPHOCYTES (AUTO) 1.7 10^3/uL (0.5-4.7); ABSOLUTE MONOCYTES (AUTO) 0.9 10^3/uL (0.1-1.4); ABSOLUTE NEUT (AUTO) 11.9 10^3/uL (1.7-8.2); BASOPHILS % (AUTO) 0.3 % (0-2); EOSINOPHILS % (AUTO) 0.2 % (0-6); HEMATOCRIT 35.9 % (37.9-51.0); HEMOGLOBIN 12.1 g/dL (13.5-17.0); LYMPHOCYTES % (AUTO) 11.6 % (13-45); MEAN CORPUSCULAR HEMOGLOBIN 30.6 pg (27.0-33.4); MEAN CORPUSCULAR HGB CONC 33.7 g/dL (32.0-36.0); MEAN CORPUSCULAR VOLUME 91 fl (80-97); MONOCYTES % (AUTO) 6.4 % (3-13); PLATELET COUNT 126 10^3/uL (150-450); RED BLOOD COUNT 3.96 10^6/uL (4.35-5.55); RED CELL DISTRIBUTION WIDTH 14.8 % (11.5-14.0); SEGMENTED NEUTROPHILS % (AUTO) 81.5 % (42-78); TOTAL CELLS COUNTED % (AUTO) 100 %; WHITE BLOOD COUNT 14.6 10^3/uL (4.0-10.5)
[2017-07-10 06:49] LABS: ANION GAP 13 (5-19); BLOOD UREA NITROGEN 25 mg/dL (7-20); CALCIUM 8.9 mg/dL (8.4-10.2); CARBON DIOXIDE 20 mmol/L (22-30); CHLORIDE 113 mmol/L (98-107); GLUCOSE 137 mg/dL (75-110); SODIUM 145.5 mmol/L (137-145)
[2017-07-10 10:51] LABS: ARTERIAL BLOOD BASE EXCESS -1.8 mmol/L; ARTERIAL BLOOD FIO2 24%; ARTERIAL BLOOD H2CO3 0.87 mmol/L (1.05-1.35); ARTERIAL BLOOD HCO3 20.8 mmol/L (20-26); ARTERIAL BLOOD O2 SATURATION 98.2 % (94-98); ARTERIAL BLOOD PH 7.47 (7.35-7.45); ARTERIAL BLOOD PO2 105.6 mmHg (80-100); ARTERIAL BLOOD TOTAL CO2 21.7 mmol/L (23-27)
[2017-07-10] MEDS: FERROUS SULFATE 325 MG TABLET PO SCH (10:52)
[2017-07-10] MEDS: BENZTROPINE MESYLATE 1 MG TABLET PO SCH ×2 (10:52→22:21)
[2017-07-10] MEDS: OLANZAPINE 5 MG TABLET PO SCH ×2 (10:52→18:31)
[2017-07-10] MEDS: LACTULOSE SYRUP 20 GM/30 ML UDCUP PO SCH ×2 (10:53→18:31)
[2017-07-10] MEDS: CALCIUM CARBONATE 250 MG/VITAMIN D3 125 UNIT TABLET PO SCH ×2 (10:53→22:20)
[2017-07-10] MEDS: CEFEPIME 1 GM/D5W RTU 1 GM/50 ML RTUPB IV SCH ×2 (10:53→23:30)
[2017-07-10 11:04] LABS: VANCOMYCIN,TROUGH 11.7 ug/mL (5.0-20.0)
[2017-07-10] MEDS ORDERED: 1/2 NORMAL SALINE 1,000 ML IV PRN (12:58)
--- NOTE | 2017-07-10 13:46 | RADIOLOGY REPORT (SQ) ---
EXAM DESCRIPTION: CT HEAD WITHOUT COMPLETED DATE/TIME: 07/10/2017 1:35 pm REASON FOR STUDY: right sided facial droop COMPARISON: 06/27/2017 TECHNIQUE: Axial images acquired through the brain without intravenous contrast. Images reviewed wi th bone, brain and subdural windows. Additional sagittal and coronal reconstructions were generated. Images stored on PACS. All CT scanners at this facility use dose modulation, iterative reconstruction, and/or weight based d osing when appropriate to reduce radiation dose to as low as reasonably achievable (ALARA). [facility]: Dose Right [facility]: CareDose [facility]: Dose Right [facility]: Teradose 4D [facility]: Smart Accelerate Mobile Apps RADIATION DOSE: CT Rad equipment meets quality standard of care and radiation dose reduction techniq ues were employed. CTDIvol: 48.6 mGy. DLP: 929 mGy-cm. mGy. LIMITATIONS: None. FINDINGS: VENTRICLES: Normal size and contour. CEREBRUM: No masses. No hemorrhage. No midline shift. No evidence for acute infarction. Few scatte red areas of low density in the white matter most likely chronic small vessel ischemic changes. CEREBELLUM: No masses. No hemorrhage. No alteration of density. No evidence for acute infarction. EXTRAAXIAL SPACES: No fluid collections. No masses. ORBITS AND GLOBE: No intra- or extraconal masses. Normal contour of globe without masses. CALVARIUM: No fracture. PARANASAL SINUSES: No fluid or mucosal thickening. SOFT TISSUES: No mass or hematoma. OTHER: No other significant finding. IMPRESSION: MILD CHRONIC MICROVASCULAR ISCHEMIA. NO ACUTE IMAGING FINDINGS IN THE BRAIN. EVIDENCE OF ACUTE STROKE: NO. COMMENT: Quality ID # [id number]: Final reports with documentation of one or more dose reduction techniques (e.g., Automated exposure control, adjustment of the mA and/or kV according to patient size, use of iterative reconstruction technique) TECHNICAL DOCUMENTATION: JOB ID: [id number] [employer]- All Rights Reserved Reading location - IP/workstation name: [email or web address]
[2017-07-10] MEDS: TAMSULOSIN HCL 0.4 MG CAP.SR.24H PO SCH (15:45)
--- NOTE | 2017-07-10 17:00 | PDOC PROGRESS REPORT ---
Subjective Progress Note for:: 07/10/17 Subjective:: Pt says his belly hurts little. Otherwise he will speak a lilttle but non sensically. I spoke with his account supervisor on the phone who knows him better than just about anyone, no family contact in years. He lives in a private home and the account supervisor comes into to help take care of him. She states that he has been somnolent on and off for the last few weeks. He recently had a decrease in his Zyprexa dose. He has had some agitated behavior, some difficulty to arouse interspersed with more normal walking around. Appetite has been poor. She also told me that in the past when he had a urinary tract infection he had this similar type of behavior. Reason For Visit: HYPERNATREMIA,ACUTE KIDNEY INJURY,LEUKOCYTOSIS, Physical Exam Vital Signs: Temp Pulse Resp BP Pulse Ox 98.4 F 176 H 24 H 148/80 H 96 07/10/17 15:20 07/10/17 15:31 07/10/17 15:20 07/10/17 15:31 07/10/17 15:20 Intake & Output 07/09/17 07/10/17 07/11/17 06:59 06:59 06:59 Intake Total 1235 2103 200 Balance 1235 2103 200 Weight 93 kg 98.1 kg General appearance: PRESENT: no acute distress, obese Head exam: PRESENT: atraumatic, normocephalic Eye exam: ABSENT: conjunctival injection, scleral icterus Ear exam: PRESENT: normal external ear exam Mouth exam: PRESENT: moist Respiratory exam: PRESENT: clear to auscultation kenneth, unlabored. ABSENT: rales , rhonchi, wheezes Cardiovascular exam: PRESENT: RRR. ABSENT: systolic murmur Pulses: PRESENT: normal radial pulses GI/Abdominal exam: PRESENT: normal bowel sounds, soft. ABSENT: distended, guarding, tenderness Neurological exam: ABSENT: alert, awake Psychiatric exam: PRESENT: unusual affect Skin exam: PRESENT: dry, warm Results Laboratory Results: 07/10/17 06:28 07/10/17 06:28 07/10/17 07/10/17 07/10/17 06:28 06:28 10:30 WBC 14.6 H RBC 3.96 L Hgb 12.1 L Hct 35.9 L MCV 91 MCH 30.6 MCHC 33.7 RDW 14.8 H Plt Count 126 L Seg Neutrophils % 81.5 H Lymphocytes % 11.6 L Monocytes % 6.4 Eosinophils % 0.2 Basophils % 0.3 Absolute Neutrophils 11.9 H Absolute Lymphocytes 1.7 Absolute Monocytes 0.9 Absolute Eosinophils 0.0 Absolute Basophils 0.1 Carbonic Acid 0.87 L HCO3/H2CO3 Ratio 23:1 ABG pH 7.47 H ABG pCO2 29.0 L ABG pO2 105.6 H ABG HCO3 20.8 ABG O2 Saturation 98.2 H ABG Base Excess -1.8 FiO2 24% Sodium 145.5 H Potassium 4.0 Chloride 113 H Carbon Dioxide 20 L Anion Gap 13 BUN 25 H Creatinine 1.06 Est GFR ( Amer) > 60 Est GFR (Non-Af Amer) > 60 Glucose 137 H Lactic Acid Calcium 8.9 Magnesium 2.4 H Ammonia 07/10/17 07/10/17 14:14 14:14 WBC RBC Hgb Hct MCV MCH MCHC RDW Plt Count Seg Neutrophils % Lymphocytes % Monocytes % Eosinophils % Basophils % Absolute Neutrophils Absolute Lymphocytes Absolute Monocytes Absolute Eosinophils Absolute Basophils Carbonic Acid HCO3/H2CO3 Ratio ABG pH ABG pCO2 ABG pO2 ABG HCO3 ABG O2 Saturation ABG Base Excess FiO2 Sodium Potassium Chloride Carbon Dioxide Anion Gap BUN Creatinine Est GFR ( Amer) Est GFR (Non-Af Amer) Glucose Lactic Acid 1.1 Calcium Magnesium Ammonia 27.0 Impressions: Chest X-Ray 07/07/17 10:20 IMPRESSION: Bibasilar atelectasis Head CT 07/10/17 00:00 IMPRESSION: MILD CHRONIC MICROVASCULAR ISCHEMIA. NO ACUTE IMAGING FINDINGS IN THE BRAIN. EVIDENCE OF ACUTE STROKE: NO. Assessment & Plan - Diagnosis (1) UTI (urinary tract infection) Qualifiers: Indwelling urinary catheter type: unspecified Is this a current diagnosis for this admission?: Yes Plan: Patient's urine culture has come back showing E. coli sensitive to cefepime. Cefepime has been restarted. Other antibiotics discontinued. Blood cultures negative to date. (2) Dementia Is this a current diagnosis for this admission?: Yes Plan: Continue to monitor for safety (3) Metabolic encephalopathy Is this a current diagnosis for this admission?: Yes Plan: I believe this is multifactorial related to acute infection in the setting of dementia and schizophrenia. Continue to treat and monitor underlying conditions and monitor his encephalopathic state. He has had hepatic encephalopathy in the past. Today ammonia is normal. His lactic acid is normal. CT scan of the head is negative. Troponins pending. (4) Schizophrenia Is this a current diagnosis for this admission?: Yes Plan: Patient's Zyprexa dose is very high and I have decreased it today. Will monitor to see if this helps the patient awakened. - Time Time Spent with patient: 35 or more minutes - Inpatient Certification Based on my medical assessment, after consideration of the patient's comorbidities, presenting symptoms, or acuity I expect that the services needed warrant INPATIENT care.: Yes I certify that my determination is in accordance with my understanding of Medicare's requirements for reasonable and necessary INPATIENT services [42 CFR 412.3e].: Yes Medical Necessity: Need Close Monitoring Due to Risk of Patient Decompensation, Need For IV Fluids, Need for IV Antibiotics
[2017-07-10 19:52] LABS: CREATINE KINASE MB 2.69 ng/mL (<4.55)
[2017-07-10 19:54] LABS: TROPONIN I 0.244 ng/mL
[2017-07-10 20:29] LABS: CREATINE KINASE MB 2.98 ng/mL (<4.55)
[2017-07-10 20:35] LABS: TROPONIN I 0.175 ng/mL
[2017-07-10] MEDS: DIVALPROEX SODIUM 500 MG TAB.SR.24H PO SCH (22:21)
[2017-07-10] MEDS ORDERED: CEFEPIME 1 GM/D5W RTU 1 GM/50 ML RTUPB IV ONE (22:54)
[2017-07-11 03:09] LABS: CREATINE KINASE MB 3.67 ng/mL (<4.55); TROPONIN I 0.13 ng/mL
[2017-07-11] MEDS: LANSOPRAZOLE 30 MG TAB.RAP.DR PO SCH (05:13)
[2017-07-11] MEDS: LEVOTHYROXINE SODIUM 0.075 MG TABLET PO SCH (05:13)
[2017-07-11] MEDS: HYDRALAZINE HCL 50 MG TABLET PO SCH ×3 (05:21→22:35)
[2017-07-11] MEDS: METOPROLOL TARTRATE 25 MG TABLET PO SCH ×2 (05:21→17:53)
[2017-07-11] MEDS ORDERED: IPRATROPIUM/ALBUTEROL 0.5-2.5 MG/3 ML AMPUL NEB PRN (10:19)
--- NOTE | 2017-07-11 10:59 | PDOC PROGRESS REPORT ---
Subjective Progress Note for:: 07/11/17 Subjective:: Patient is more awake today. He is able to tell me that he needs to use the bathroom. He also tells me that he would like to eat something. Overnight he became agitated and pulled his IV out. He had a bowel movement and urinated in a brief this morning. He has eaten some this morning without choking. He tells me that he is having a hard time breathing and would like a breathing treatment. Reason For Visit: Embolic encephalopathy, urinary tract infection, schizophrenia, Physical Exam Vital Signs: Temp Pulse Resp BP Pulse Ox 98.6 F 74 22 H 148/80 H 91 L 07/11/17 08:00 07/11/17 08:00 07/11/17 08:00 07/11/17 08:00 07/11/17 08:00 Intake & Output 07/10/17 07/11/17 07/12/17 06:59 06:59 06:59 Intake Total 2103 1580 Balance 2103 1580 Weight 98.1 kg 99.8 kg General appearance: PRESENT: mild distress, obese Head exam: PRESENT: atraumatic, normocephalic Eye exam: ABSENT: scleral icterus Mouth exam: PRESENT: moist Respiratory exam: PRESENT: decreased breath sounds, tachypnea, wheezes. ABSENT : rales, rhonchi, unlabored Cardiovascular exam: PRESENT: RRR. ABSENT: systolic murmur Pulses: PRESENT: normal radial pulses GI/Abdominal exam: PRESENT: normal bowel sounds, soft. ABSENT: distended, firm , guarding, tenderness Extremities exam: ABSENT: pedal edema Musculoskeletal exam: PRESENT: normal inspection Neurological exam: PRESENT: awake, oriented to person Psychiatric exam: PRESENT: flat affect Focused psych exam: PRESENT: restlessness Skin exam: PRESENT: dry, warm, other - Scattered ecchymoses Results Laboratory Results: 07/10/17 06:28 07/10/17 06:28 07/10/17 07/10/17 07/10/17 10:30 14:14 14:14 Carbonic Acid 0.87 L HCO3/H2CO3 Ratio 23:1 ABG pH 7.47 H ABG pCO2 29.0 L ABG pO2 105.6 H ABG HCO3 20.8 ABG O2 Saturation 98.2 H ABG Base Excess -1.8 FiO2 24% Lactic Acid 1.1 Ammonia 27.0 06/01/18 06/01/18 06/01/18 14:14 14:14 19:55 Creatine Kinase 42 L 35 L CK-MB (CK-2) 2.69 Troponin I 0.244 07/10/17 07/11/17 07/11/17 19:55 02:20 02:20 Creatine Kinase 80 CK-MB (CK-2) 2.98 3.67 Troponin I 0.175 0.130 Impressions: Chest X-Ray 07/07/17 10:20 IMPRESSION: Bibasilar atelectasis Head CT 07/10/17 00:00 IMPRESSION: MILD CHRONIC MICROVASCULAR ISCHEMIA. NO ACUTE IMAGING FINDINGS IN THE BRAIN. EVIDENCE OF ACUTE STROKE: NO. Assessment & Plan - Diagnosis (1) Metabolic encephalopathy Is this a current diagnosis for this admission?: Yes Plan: Multifactorial related to urinary tract infection, dementia, schizophrenia and possibly higher dose of Zyprexa than is needed. We will continue to monitor for safety and treat underlying conditions. Patient's condition, metabolic encephalopathy, has improved today. As well, the patient is treated for hyperammonemia with lactulose and his ammonia level has been normal since yesterday afternoon. His lactic acid level was negative. CT scan of the head was negative for acute change. Troponins show slightly elevated troponin last night that has trended down. (2) UTI (urinary tract infection) Qualifiers: Indwelling urinary catheter type: unspecified Is this a current diagnosis for this admission?: Yes Plan: E. coli in urine. Will transition patient to oral cephalosporin. Patient's mental status has improved since yesterday. I believe that urinary tract infection has been contributing to metabolic encephalopathy. (3) Dementia Is this a current diagnosis for this admission?: Yes Plan: Unknown type. Will monitor for safety. (4) Schizophrenia Is this a current diagnosis for this admission?: Yes Plan: Unknown type. Patient is on divalproex acid and Zyprexa. I decreased his Zyprexa dose yesterday. Will check valproic acid level. His proofer he sees his psychiatrist, Dr. Tatum from time to time. Phone #[phone]. We can call on Thursday if indicated. (5) Elevated troponin Is this a current diagnosis for this admission?: Yes Plan: Unclear if this represents a type II NC versus a non-ST elevation NC. Will have discussion with cardiology. Patient is not on an aspirin and this is 1 of the things we need to see if he could benefit from. I see that he is not on DVT prophylaxis and I do not know why and so I am concerned about the possibility of history of bleeding, again we will discuss with cardiology and performed chart review to learn more. Continue patient's metoprolol. (6) Wheezing Is this a current diagnosis for this admission?: Yes Plan: Per chart review this patient is a current every day smoker. He probably has undiagnosed COPD. I have ordered every 4 hours as needed duo nebs. Will start a course of low-dose prednisone 10 mg 5 days.
[2017-07-11] MEDS: BENZTROPINE MESYLATE 1 MG TABLET PO SCH ×2 (11:03→22:35)
[2017-07-11] MEDS: CALCIUM CARBONATE 250 MG/VITAMIN D3 125 UNIT TABLET PO SCH ×2 (11:03→22:35)
[2017-07-11] MEDS: FERROUS SULFATE 325 MG TABLET PO SCH (11:04)
[2017-07-11] MEDS: LACTULOSE SYRUP 20 GM/30 ML UDCUP PO SCH ×2 (11:04→17:53)
[2017-07-11] MEDS: OLANZAPINE 5 MG TABLET PO SCH ×2 (11:05→17:53)
[2017-07-11] MEDS ORDERED: CEFUROXIME 250 MG TABLET PO ONE (11:30)
--- NOTE | 2017-07-11 11:33 | RADIOLOGY REPORT (SQ) ---
EXAM DESCRIPTION: CHEST SINGLE VIEW COMPLETED DATE/TIME: 07/11/2017 11:25 am REASON FOR STUDY: respiratory distress COMPARISON: 07/07/2017 NUMBER OF VIEWS: One view. TECHNIQUE: Single frontal radiographic view of the chest acquired. LIMITATIONS: None. FINDINGS: LUNGS AND PLEURA: Mild interstitial edema. No consolidation, pleural effusion, or pneumot horax. MEDIASTINUM AND HILAR STRUCTURES: No masses or contour abnormality. HEART AND VASCULATURE: Cardiac enlargement. Vascular congestion. BONES: No acute findings. HARDWARE: None in the chest. OTHER: No other significant finding. IMPRESSION: MILD INTERSTITIAL EDEMA. TECHNICAL DOCUMENTATION: JOB ID: [id number] [employer]- All Rights Reserved Reading location - IP/workstation name: [email or web address]
[2017-07-11] MEDS: PREDNISONE 10 MG TABLET PO SCH (13:52)
[2017-07-11] MEDS ORDERED: FUROSEMIDE INJ/PF 20 MG/2 ML SDV IV ONE (17:00)
[2017-07-11] MEDS: TAMSULOSIN HCL 0.4 MG CAP.SR.24H PO SCH (17:52)
[2017-07-11] MEDS: ACETAMINOPHEN 325 MG TABLET PO PRN (17:53)
[2017-07-11] MEDS ORDERED: HEPARIN SOD (PORCINE) 5,000 UNIT/ML 1 ML SYRINGE SUBCUT SCH (22:00)
[2017-07-11] MEDS: DIVALPROEX SODIUM 500 MG TAB.SR.24H PO SCH (22:35)
[2017-07-11] MEDS: CEFUROXIME 250 MG TABLET PO SCH (22:35)
[2017-07-12 05:02] LABS: HEMATOCRIT 34.8 % (37.9-51.0); HEMOGLOBIN 11.7 g/dL (13.5-17.0); MEAN CORPUSCULAR HEMOGLOBIN 30.7 pg (27.0-33.4); MEAN CORPUSCULAR HGB CONC 33.6 g/dL (32.0-36.0); MEAN CORPUSCULAR VOLUME 92 fl (80-97); PLATELET COUNT 174 10^3/uL (150-450); RED CELL DISTRIBUTION WIDTH 15.2 % (11.5-14.0); WHITE BLOOD COUNT 11.7 10^3/uL (4.0-10.5)
[2017-07-12 05:24] LABS: ANION GAP 9 (5-19); BLOOD UREA NITROGEN 51 mg/dL (7-20); CALCIUM 9.2 mg/dL (8.4-10.2); CARBON DIOXIDE 22 mmol/L (22-30); CHLORIDE 115 mmol/L (98-107); GLUCOSE 129 mg/dL (75-110); POTASSIUM 3.9 mmol/L (3.6-5.0); SODIUM 145.7 mmol/L (137-145)
[2017-07-12] MEDS: LEVOTHYROXINE SODIUM 0.075 MG TABLET PO SCH (06:08)
[2017-07-12] MEDS: HYDRALAZINE HCL 50 MG TABLET PO SCH ×3 (06:08→22:57)
[2017-07-12] MEDS: METOPROLOL TARTRATE 25 MG TABLET PO SCH ×2 (06:08→18:05)
[2017-07-12] MEDS: LANSOPRAZOLE 15 MG TAB.RAP.DR PO SCH (07:30)
--- NOTE | 2017-07-12 10:25 | PDOC PROGRESS REPORT ---
Subjective Progress Note for:: 07/12/17 Subjective:: pt is mumbling but when asked questions he will answer. Says he saw his friend and her family today (shear assembler and family did come visit). He is not hungry, had no pain, frustrated with hand restraints, does not recall kicking at staff member this am. Says he is breathing ok. Reason For Visit: HYPERNATREMIA,ACUTE KIDNEY INJURY,LEUKOCYTOSIS, Physical Exam Vital Signs: Temp Pulse Resp BP Pulse Ox 98.5 F 59 L 20 136/62 H 100 07/12/17 08:00 07/12/17 08:00 07/12/17 08:00 07/12/17 08:00 07/12/17 08:00 Intake & Output 07/11/17 07/12/17 07/13/17 06:59 06:59 06:59 Intake Total 1580 860 Balance 1580 860 Weight 99.8 kg General appearance: PRESENT: mild distress, other - cooperative mostly Head exam: PRESENT: atraumatic, normocephalic Eye exam: ABSENT: scleral icterus Ear exam: PRESENT: normal external ear exam Mouth exam: PRESENT: tongue midline Respiratory exam: PRESENT: clear to auscultation kenneth, unlabored. ABSENT: rales , rhonchi, wheezes Cardiovascular exam: PRESENT: RRR. ABSENT: systolic murmur Pulses: PRESENT: normal radial pulses GI/Abdominal exam: PRESENT: normal bowel sounds, soft. ABSENT: distended, guarding, tenderness Gentrourinary exam: PRESENT: other - wearing diaper Musculoskeletal exam: ABSENT: tenderness Neurological exam: PRESENT: awake, oriented to person. ABSENT: oriented to place, oriented to situation Psychiatric exam: PRESENT: agitated Skin exam: PRESENT: dry, warm Results Laboratory Results: 07/12/17 04:40 07/12/17 04:40 07/12/17 07/12/17 04:40 04:40 WBC 11.7 H RBC 3.80 L Hgb 11.7 L Hct 34.8 L MCV 92 MCH 30.7 MCHC 33.6 RDW 15.2 H Plt Count 174 Sodium 145.7 H Potassium 3.9 Chloride 115 H Carbon Dioxide 22 Anion Gap 9 BUN 51 H Creatinine 1.02 Est GFR ( Amer) > 60 Est GFR (Non-Af Amer) > 60 Glucose 129 H Calcium 9.2 Magnesium 2.7 H 07/10/17 07/10/17 07/10/17 14:14 14:14 19:55 Creatine Kinase 42 L 35 L CK-MB (CK-2) 2.69 Troponin I 0.244 07/10/17 07/11/17 07/11/17 19:55 02:20 02:20 Creatine Kinase 80 CK-MB (CK-2) 2.98 3.67 Troponin I 0.175 0.130 Impressions: Head CT 07/10/17 00:00 IMPRESSION: MILD CHRONIC MICROVASCULAR ISCHEMIA. NO ACUTE IMAGING FINDINGS IN THE BRAIN. EVIDENCE OF ACUTE STROKE: NO. Chest X-Ray 07/11/17 00:00 IMPRESSION: MILD INTERSTITIAL EDEMA. Assessment & Plan - Diagnosis (1) Metabolic encephalopathy Is this a current diagnosis for this admission?: Yes Plan: this is multifactorial due to UTI, underlying schizophrenia and dementia and likley a hospital acquired delerium. He is improved overall with treatments. ABX for UTI, decreased zyprexa. He has been a bit more agitated and kicked at staff today so for safety he is temporarily retrained. Medical restraint could cause worsened encephalopathy so I will try to avoid that. I will increase zyprez to 15 BID and consult psych to help with getting pt back to baseline. (2) UTI (urinary tract infection) Qualifiers: Indwelling urinary catheter type: unspecified Is this a current diagnosis for this admission?: Yes (3) Dementia Is this a current diagnosis for this admission?: Yes Plan: unknown type and due to scizophrenia cannot determine in acute state if there is a behavioral component, cont current care, monitor for safety (4) Schizophrenia Is this a current diagnosis for this admission?: Yes Plan: Was on zyprexa 20 BID and due to oversomnolence I decreased to 10 BID, now with better awakening and also with some agitation I am increasing dose to 15 BID. Cont benztropine and depakote. Psych consult service consulted. (5) Elevated troponin Is this a current diagnosis for this admission?: Yes Plan: Trended down, consider type 2 [place] vs NSTEMI. Plts now normal. Will add BASA. Will cont with BP control. In his current clinical state stress test not indicated, consider out pt cards consult if he remains stable while admitted. (6) Wheezing Is this a current diagnosis for this admission?: Yes Plan: Resolved with duoneb and lasix 20 mg IV x 1. Had pulm congestion on CXR. Will order ECHO for Thursday. - Time Time Spent with patient: 25-34 minutes Medications reviewed and adjusted accordingly: Yes - Inpatient Certification Based on my medical assessment, after consideration of the patient's comorbidities, presenting symptoms, or acuity I expect that the services needed warrant INPATIENT care.: Yes I certify that my determination is in accordance with my understanding of Medicare's requirements for reasonable and necessary INPATIENT services [42 CFR 412.3e].: Yes Medical Necessity: Significant Comorbidiites Make Outpatient Treatment Too Risky , Need Close Monitoring Due to Risk of Patient Decompensation, Risk of Complication if Not Cared For in Hospital
[2017-07-12] MEDS ORDERED: OLANZAPINE 5 MG TABLET PO ONE (11:00)
[2017-07-12] MEDS: BENZTROPINE MESYLATE 1 MG TABLET PO SCH ×2 (11:07→22:57)
[2017-07-12] MEDS: CEFUROXIME 250 MG TABLET PO SCH ×2 (11:08→22:57)
[2017-07-12] MEDS: FERROUS SULFATE 325 MG TABLET PO SCH (11:08)
[2017-07-12] MEDS: CALCIUM CARBONATE 250 MG/VITAMIN D3 125 UNIT TABLET PO SCH ×2 (11:08→22:59)
[2017-07-12] MEDS: LACTULOSE SYRUP 20 GM/30 ML UDCUP PO SCH ×2 (11:09→18:05)
[2017-07-12] MEDS: PREDNISONE 10 MG TABLET PO SCH (11:09)
[2017-07-12] MEDS: HEPARIN SOD (PORCINE) 5,000 UNIT/ML 1 ML SYRINGE SUBCUT SCH ×2 (14:08→22:57)
--- NOTE | 2017-07-12 15:05 | PSYCHOLOGICAL NOTE ---
Psych Note - Psych Note Psych Note: Reason for consult: Medication recommendations 62 y.o male with a PMHx of HLD, HTN, CVA in 2016, dementia, chronic weakness and Schizophrenia presents to the [facility] with AMS. Caretakers report that 07/01/17, he was lethargic and they had stopped his medications but that morning he was fine all the way up until last night when he started to ramble and was not making sense. Caretakers report that they took him to the family clinic who referred them to the ED. Patient currently in psychosis and has demonstrated some improvement in correctly identifying his name birthdate however is not orientated to anything else. Patient currently has a UTI. Chart review conducted: Review of chart/records noted patient was seen 04/26/2016 08/22/15 08/24/15 and 10/07/[address] dated 04/22/2016 indicates old bilateral ophthalmic and bilateral basal ganglia infarcts. A head CT dated 11/10/15 findings are: prominence of ventricles and sulci consistent with cerebral atrophy, focal areas of low density in the deep right parietal lobe and right basal ganglia consistent with old lacunar infarcts. These are consistent with findings and impression from 07/16/2014 and 09/18/[address]s. Clinician notes all Head CTs from 2018 on notes chronic microvascular ischemia change with atrophy. 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 Patient's most significant deficits are notable in decision making, planning, sequencing, expression of language, safety awareness, higher cortical abstract reasoning, insight, judgment, impulse control, and ability to manage his behavior. These deficits place the Patient in harm's way and make him vulnerable to being taken advantage of by others, and also to make decisions that are not in his best interest. Patient's cognitive presentation will continue to decline, particularly given results of his head CT which show prominent ventricles and sulci consistent with cerebral atrophy, and low density areas in the deep right parietal lobe and right basal ganglia consistent with an old lacunar infarct. Attending / Prescribing physicians are encouraged to avoid the use of benzodiazepines, antipsychotics,a nd narcotic medications if possible, as research shows these classes of medicines are dangerous to individuals diagnosed with dementia and can also enhanced agitation , increased irritability and aggression, and cause hallucinations and psychosis , and potentially . Medication recommendations made by [facility]'s contracted psychiatrist Dr. Keny MARINELLI are as follows: 1. please discontinue Zyprexa and Cogentin 2. please add Clonidine 0.1 MG nightly 3. 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 Impression: Patient is from acute psychiatric services. Note that due to dementia doctors should avoid medications such as benzodiazepines, antipsychotics, some sleep medications, steroids, and pain medications as these have a tendency to cause or increase psychosis and/or aggression. Is also noted the patient currently has a UTI which can also cause or increase psychosis and/or aggression. Dr. sotelo was consulted on the care and management of his patient; Attending physician is in agreement with recommendations and disposition.
[2017-07-12] MEDS: TAMSULOSIN HCL 0.4 MG CAP.SR.24H PO SCH (18:05)
[2017-07-12] MEDS ORDERED: OLANZAPINE 5 MG TABLET PO SCH (22:00)
[2017-07-12] MEDS: DIVALPROEX SODIUM 500 MG TAB.SR.24H PO SCH (22:57)
[2017-07-13] MEDS ORDERED: HALOPERIDOL LACTATE INJ 5 MG/1 ML VIAL IM ONE (04:00)
[2017-07-13 05:32] LABS: HEMATOCRIT 33.5 % (37.9-51.0); MEAN CORPUSCULAR HEMOGLOBIN 30.1 pg (27.0-33.4); MEAN CORPUSCULAR HGB CONC 32.8 g/dL (32.0-36.0); MEAN CORPUSCULAR VOLUME 92 fl (80-97); RED BLOOD COUNT 3.66 10^6/uL (4.35-5.55); RED CELL DISTRIBUTION WIDTH 14.9 % (11.5-14.0); WHITE BLOOD COUNT 12.6 10^3/uL (4.0-10.5)
[2017-07-13 05:52] LABS: PLATELET COUNT 187 10^3/uL (150-450)
[2017-07-13 05:54] LABS: ANION GAP 9 (5-19); BLOOD UREA NITROGEN 53 mg/dL (7-20); CALCIUM 9.1 mg/dL (8.4-10.2); CARBON DIOXIDE 25 mmol/L (22-30); CHLORIDE 114 mmol/L (98-107); GLUCOSE 85 mg/dL (75-110); POTASSIUM 3.9 mmol/L (3.6-5.0); SODIUM 148.4 mmol/L (137-145)
[2017-07-13] MEDS: HYDRALAZINE HCL 50 MG TABLET PO SCH ×3 (06:33→21:37)
[2017-07-13] MEDS: LEVOTHYROXINE SODIUM 0.075 MG TABLET PO SCH (06:33)
[2017-07-13] MEDS: METOPROLOL TARTRATE 25 MG TABLET PO SCH ×2 (06:33→17:42)
[2017-07-13] MEDS: HEPARIN SOD (PORCINE) 5,000 UNIT/ML 1 ML SYRINGE SUBCUT SCH ×3 (06:33→21:37)
[2017-07-13] MEDS ORDERED: OLANZAPINE 5 MG TABLET PO SCH (07:54)
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
[2017-07-13] MEDS: CALCIUM CARBONATE 250 MG/VITAMIN D3 125 UNIT TABLET PO SCH ×2 (10:28→21:37)
[2017-07-13] MEDS: OLANZAPINE 5 MG TABLET PO SCH ×2 (10:28→21:37)
[2017-07-13] MEDS: LANSOPRAZOLE 15 MG TAB.RAP.DR PO SCH (10:28)
[2017-07-13] MEDS: BENZTROPINE MESYLATE 1 MG TABLET PO SCH ×2 (10:28→21:37)
[2017-07-13] MEDS: FERROUS SULFATE 325 MG TABLET PO SCH (10:28)
[2017-07-13] MEDS: CEFUROXIME 250 MG TABLET PO SCH ×2 (10:55→21:37)
[2017-07-13] MEDS: LACTULOSE SYRUP 20 GM/30 ML UDCUP PO SCH ×2 (10:55→17:42)
[2017-07-13] MEDS: PREDNISONE 10 MG TABLET PO SCH (13:55)
[2017-07-13] MEDS: TAMSULOSIN HCL 0.4 MG CAP.SR.24H PO SCH (17:42)
[2017-07-13] MEDS: DIVALPROEX SODIUM 500 MG TAB.SR.24H PO SCH (21:37)
[2017-07-14] MEDS: METOPROLOL TARTRATE 25 MG TABLET PO SCH ×2 (05:48→17:26)
[2017-07-14] MEDS: LEVOTHYROXINE SODIUM 0.075 MG TABLET PO SCH (05:48)
[2017-07-14] MEDS: HEPARIN SOD (PORCINE) 5,000 UNIT/ML 1 ML SYRINGE SUBCUT SCH ×3 (05:48→22:20)
[2017-07-14] MEDS: HYDRALAZINE HCL 50 MG TABLET PO SCH ×3 (05:48→22:21)
[2017-07-14 06:22] LABS: HEMATOCRIT 35.5 % (37.9-51.0); HEMOGLOBIN 11.9 g/dL (13.5-17.0); MEAN CORPUSCULAR HEMOGLOBIN 30.7 pg (27.0-33.4); MEAN CORPUSCULAR HGB CONC 33.5 g/dL (32.0-36.0); MEAN CORPUSCULAR VOLUME 92 fl (80-97); PLATELET COUNT 207 10^3/uL (150-450); RED BLOOD COUNT 3.86 10^6/uL (4.35-5.55); RED CELL DISTRIBUTION WIDTH 14.8 % (11.5-14.0); WHITE BLOOD COUNT 7.2 10^3/uL (4.0-10.5)
[2017-07-14 06:45] LABS: ANION GAP 11 (5-19); BLOOD UREA NITROGEN 40 mg/dL (7-20); CALCIUM 9.5 mg/dL (8.4-10.2); CARBON DIOXIDE 27 mmol/L (22-30); CHLORIDE 114 mmol/L (98-107); GLUCOSE 82 mg/dL (75-110); POTASSIUM 3.6 mmol/L (3.6-5.0)
[2017-07-14] MEDS: LACTULOSE SYRUP 20 GM/30 ML UDCUP PO SCH ×2 (09:46→17:26)
[2017-07-14] MEDS: LANSOPRAZOLE 15 MG TAB.RAP.DR PO SCH (09:47)
[2017-07-14] MEDS: FERROUS SULFATE 325 MG TABLET PO SCH (09:47)
[2017-07-14] MEDS: OLANZAPINE 5 MG TABLET PO SCH ×2 (09:47→22:21)
[2017-07-14] MEDS: CALCIUM CARBONATE 250 MG/VITAMIN D3 125 UNIT TABLET PO SCH ×2 (09:47→22:21)
[2017-07-14] MEDS: CEFUROXIME 250 MG TABLET PO SCH ×2 (09:48→22:21)
[2017-07-14] MEDS: BENZTROPINE MESYLATE 1 MG TABLET PO SCH ×2 (09:48→22:21)
[2017-07-14] MEDS: PREDNISONE 10 MG TABLET PO SCH (12:48)
--- NOTE | 2017-07-14 15:46 | PDOC PROGRESS REPORT ---
Subjective Progress Note for:: 07/14/17 Subjective:: Mental status slowly improving. Speech improved. Still confused and not answering all questions appropriately. Reason For Visit: HYPERNATREMIA,ACUTE KIDNEY INJURY,LEUKOCYTOSIS, Physical Exam Vital Signs: Temp Pulse Resp BP Pulse Ox 98.4 F 55 L 21 H 182/70 H 97 07/14/17 11:55 07/14/17 11:55 07/14/17 11:55 07/14/17 11:55 07/14/17 11:55 Intake & Output 07/13/17 07/14/17 07/15/17 06:59 06:59 06:59 Intake Total 809 320 Balance 809 320 Weight 96.4 kg 95.6 kg General appearance: PRESENT: disheveled, mild distress, obese Mouth exam: PRESENT: dry mucosa Respiratory exam: PRESENT: unlabored, other - On supplemental O2 Cardiovascular exam: PRESENT: +S1, +S2. ABSENT: tachycardia GI/Abdominal exam: PRESENT: soft. ABSENT: tenderness Neurological exam: PRESENT: altered, awake. ABSENT: oriented to place, oriented to time Psychiatric exam: PRESENT: agitated Focused psych exam: PRESENT: restlessness Skin exam: PRESENT: dry, warm Results Laboratory Results: 07/14/17 05:21 07/14/17 05:21 07/14/17 07/14/17 05:21 05:21 WBC 7.2 RBC 3.86 L Hgb 11.9 L Hct 35.5 L MCV 92 MCH 30.7 MCHC 33.5 RDW 14.8 H Plt Count 207 Sodium 152.0 H Potassium 3.6 Chloride 114 H Carbon Dioxide 27 Anion Gap 11 BUN 40 H Creatinine 0.75 Est GFR ( Amer) > 60 Est GFR (Non-Af Amer) > 60 Glucose 82 Calcium 9.5 07/10/17 07/10/17 07/10/17 14:14 14:14 19:55 Creatine Kinase 42 L 35 L CK-MB (CK-2) 2.69 Troponin I 0.244 07/10/17 07/11/17 07/11/17 19:55 02:20 02:20 Creatine Kinase 80 CK-MB (CK-2) 2.98 3.67 Troponin I 0.175 0.130 Impressions: Head CT 07/10/17 00:00 IMPRESSION: MILD CHRONIC MICROVASCULAR ISCHEMIA. NO ACUTE IMAGING FINDINGS IN THE BRAIN. EVIDENCE OF ACUTE STROKE: NO. Chest X-Ray 07/11/17 00:00 IMPRESSION: MILD INTERSTITIAL EDEMA. Assessment & Plan - Diagnosis (1) UTI (urinary tract infection) Qualifiers: Indwelling urinary catheter type: unspecified Is this a current diagnosis for this admission?: Yes Plan: Urine culture positive for E. coli, currently on Ceftin 250mg BID for 7 days due to complicated UTI - Blood cultures NGTD (2) Altered mental status Qualifiers: Altered mental status type: unspecified Qualified Code(s): R41.82 - Altered mental status, unspecified Is this a current diagnosis for this admission?: Yes Plan: Likely multifactorial from infection (UTI), known history of schizophrenia, and hospital induced delirium - Continue to treat underlying issues - Encourage good sleep wake/cycle - Restraints re-ordered today, as mental status improves, will try to discontinue (3) Elevated troponin Is this a current diagnosis for this admission?: Yes Plan: Noted at admission, trended down, no active CP. (4) Schizophrenia Is this a current diagnosis for this admission?: Yes Plan: Continue Zyprexa 15 pop BID - Psychiatry following, appreciate assistance with behavioral issues. (5) Hypernatremia Is this a current diagnosis for this admission?: Yes Plan: Rising Na over last few days. Has been on IVF with NS. Discontinued on 07/14 - Started D5W @ 100cc/hour * 2 days - CTM with daily BMP - Time Time Spent with patient: Less than 15 minutes Anticipated discharge: SNF
[2017-07-14] MEDS: DEXTROSE 5%-WATER 1000 ML 1,000 ML IV PRN (17:25)
[2017-07-14] MEDS: TAMSULOSIN HCL 0.4 MG CAP.SR.24H PO SCH (17:26)
[2017-07-14] MEDS: DIVALPROEX SODIUM 500 MG TAB.SR.24H PO SCH (22:21)
[2017-07-15] MEDS: DEXTROSE 5%-WATER 1000 ML 1,000 ML IV PRN (03:48)
[2017-07-15] MEDS: METOPROLOL TARTRATE 25 MG TABLET PO SCH ×2 (05:49→17:18)
[2017-07-15] MEDS: HYDRALAZINE HCL 50 MG TABLET PO SCH ×3 (05:49→21:39)
[2017-07-15] MEDS: LEVOTHYROXINE SODIUM 0.075 MG TABLET PO SCH (05:49)
[2017-07-15] MEDS: HEPARIN SOD (PORCINE) 5,000 UNIT/ML 1 ML SYRINGE SUBCUT SCH ×3 (05:49→21:40)
[2017-07-15 06:56] LABS: ANION GAP 10 (5-19); BLOOD UREA NITROGEN 27 mg/dL (7-20); CALCIUM 9.3 mg/dL (8.4-10.2); CARBON DIOXIDE 29 mmol/L (22-30); CHLORIDE 108 mmol/L (98-107); GLUCOSE 107 mg/dL (75-110); POTASSIUM 3.3 mmol/L (3.6-5.0)
[2017-07-15] MEDS: LANSOPRAZOLE 15 MG TAB.RAP.DR PO SCH (08:28)
[2017-07-15] MEDS: OLANZAPINE 5 MG TABLET PO SCH (09:02)
[2017-07-15] MEDS: BENZTROPINE MESYLATE 1 MG TABLET PO SCH (09:02)
[2017-07-15] MEDS: LACTULOSE SYRUP 20 GM/30 ML UDCUP PO SCH ×2 (09:02→17:18)
[2017-07-15] MEDS: CEFUROXIME 250 MG TABLET PO SCH ×2 (09:03→21:41)
[2017-07-15] MEDS: CALCIUM CARBONATE 250 MG/VITAMIN D3 125 UNIT TABLET PO SCH ×2 (09:03→21:40)
[2017-07-15] MEDS: FERROUS SULFATE 325 MG TABLET PO SCH (09:03)
[2017-07-15] MEDS: PREDNISONE 10 MG TABLET PO SCH (13:14)
[2017-07-15] MEDS ORDERED: POTASSI CL 20 MEQ/D5-1/2NS 1L 1,000 ML IV PRN (16:08)
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
[2017-07-15] MEDS: TAMSULOSIN HCL 0.4 MG CAP.SR.24H PO SCH (16:25)
[2017-07-15] MEDS: NICOTINE 21 MG/24 HR PATCH.TD24 TD SCH (17:29)
[2017-07-15] MEDS: CLONIDINE HCL 0.1 MG TABLET PO SCH (21:39)
[2017-07-15] MEDS: DIVALPROEX SODIUM 500 MG TAB.SR.24H PO SCH (21:39)
[2017-07-16] MEDS: HYDRALAZINE HCL 50 MG TABLET PO SCH ×3 (05:44→22:08)
[2017-07-16] MEDS: LEVOTHYROXINE SODIUM 0.075 MG TABLET PO SCH (05:44)
[2017-07-16] MEDS: HEPARIN SOD (PORCINE) 5,000 UNIT/ML 1 ML SYRINGE SUBCUT SCH ×3 (05:44→22:08)
[2017-07-16] MEDS: METOPROLOL TARTRATE 25 MG TABLET PO SCH ×2 (05:44→17:26)
[2017-07-16 06:00] LABS: ANION GAP 8 (5-19); BLOOD UREA NITROGEN 25 mg/dL (7-20); CALCIUM 9.3 mg/dL (8.4-10.2); CARBON DIOXIDE 29 mmol/L (22-30); CHLORIDE 108 mmol/L (98-107); GLUCOSE 127 mg/dL (75-110); PHOSPHORUS 3.6 mg/dL (2.5-4.5); POTASSIUM 3.4 mmol/L (3.6-5.0); SODIUM 144.5 mmol/L (137-145)
[2017-07-16] MEDS: CEFUROXIME 250 MG TABLET PO SCH ×2 (09:18→22:09)
[2017-07-16] MEDS: LANSOPRAZOLE 15 MG TAB.RAP.DR PO SCH (09:18)
[2017-07-16] MEDS: FERROUS SULFATE 325 MG TABLET PO SCH (09:18)
[2017-07-16] MEDS: CALCIUM CARBONATE 250 MG/VITAMIN D3 125 UNIT TABLET PO SCH ×2 (09:18→22:09)
[2017-07-16] MEDS: LACTULOSE SYRUP 20 GM/30 ML UDCUP PO SCH ×2 (09:18→17:24)
[2017-07-16] MEDS: TAMSULOSIN HCL 0.4 MG CAP.SR.24H PO SCH ×2 (15:31→22:09)
[2017-07-16] MEDS: NICOTINE 21 MG/24 HR PATCH.TD24 TD SCH (17:26)
[2017-07-16] MEDS ORDERED: NICOTINE 21 MG/24 HR PATCH.TD24 TD SCH (18:00)
--- NOTE | 2017-07-16 19:04 | PDOC PROGRESS REPORT ---
Subjective Progress Note for:: 07/16/17 Subjective:: Behavior is been better today. He reported being unable to urinate, and a bladder scan showed 900 mL in his bladder. A Chaves catheter was placed, and he promptly went sound asleep. Reason For Visit: HYPERNATREMIA,ACUTE KIDNEY INJURY,LEUKOCYTOSIS, Physical Exam Vital Signs: Temp Pulse Resp BP Pulse Ox 98.7 F 51 L 19 144/51 H 96 07/16/17 16:27 07/16/17 16:27 07/16/17 16:27 07/16/17 16:27 07/16/17 16:27 Intake & Output 07/15/17 07/16/17 07/17/17 05:59 05:59 05:59 Intake Total 420 1030 750 Output Total 100 1850 Balance 420 930 -1100 Weight 208 lb 15.971 oz 206 lb 9.17 oz General appearance: PRESENT: no acute distress, other - Very somnolent Respiratory exam: PRESENT: clear to auscultation kenneth Cardiovascular exam: PRESENT: RRR GI/Abdominal exam: PRESENT: soft Gentrourinary exam: PRESENT: indwelling catheter Neurological exam: PRESENT: CN II-XII grossly intact Psychiatric exam: PRESENT: other - Sound asleep. Slept through the exam. Skin exam: PRESENT: warm Results Laboratory Results: 07/14/17 05:21 07/16/17 05:01 07/16/17 05:01 Sodium 144.5 Potassium 3.4 L Chloride 108 H Carbon Dioxide 29 Anion Gap 8 BUN 25 H Creatinine 0.84 Est GFR ( Amer) > 60 Est GFR (Non-Af Amer) > 60 Glucose 127 H Calcium 9.3 Phosphorus 3.6 Magnesium 2.1 07/10/17 07/10/17 07/10/17 14:14 14:14 19:55 Creatine Kinase 42 L 35 L CK-MB (CK-2) 2.69 Troponin I 0.244 NT-Pro-B Natriuret Pep 07/10/17 07/11/17 07/11/17 19:55 02:20 02:20 Creatine Kinase 80 CK-MB (CK-2) 2.98 3.67 Troponin I 0.175 0.130 NT-Pro-B Natriuret Pep 07/16/17 05:01 Creatine Kinase CK-MB (CK-2) Troponin I NT-Pro-B Natriuret Pep 5980 H Impressions: Head CT 07/10/17 00:00 IMPRESSION: MILD CHRONIC MICROVASCULAR ISCHEMIA. NO ACUTE IMAGING FINDINGS IN THE BRAIN. EVIDENCE OF ACUTE STROKE: NO. Chest X-Ray 07/11/17 00:00 IMPRESSION: MILD INTERSTITIAL EDEMA. Assessment & Plan - Diagnosis (1) Acute kidney injury Is this a current diagnosis for this admission?: Yes Plan: Roughly at baseline (2) Dementia Qualifiers: Dementia behavioral disturbance: with behavioral disturbance Is this a current diagnosis for this admission?: Yes Plan: Behavior considerably improved. Continue to monitor. (3) Hypernatremia Is this a current diagnosis for this admission?: Yes Plan: Resolved (4) Metabolic encephalopathy Is this a current diagnosis for this admission?: Yes (5) Schizophrenia Is this a current diagnosis for this admission?: Yes Plan: Psychiatry recommendations were ordered. (6) UTI (urinary tract infection) Qualifiers: Indwelling urinary catheter type: unspecified Is this a current diagnosis for this admission?: Yes Plan: Continue current antibiotics. I would complete a 14 day course. (7) Obstructive uropathy Is this a current diagnosis for this admission?: Yes Plan: Continue the Chaves. I will increase his Flomax. I would anticipate that he will probably go home with the Chaves and follow-up with urology as an outpatient.
[2017-07-16] MEDS: DIVALPROEX SODIUM 500 MG TAB.SR.24H PO SCH (22:08)
[2017-07-16] MEDS: RISPERIDONE 0.25 MG TABLET PO PRN (22:08)
[2017-07-16] MEDS: CLONIDINE HCL 0.1 MG TABLET PO SCH (22:09)
[2017-07-17] MEDS ORDERED: POTASSI CL 20 MEQ/D5-1/2NS 1L 1000 ML IV PRN (00:52)
[2017-07-17 05:51] LABS: ALBUMIN 2.9 g/dL (3.5-5.0); ANION GAP 9 (5-19); BLOOD UREA NITROGEN 20 mg/dL (7-20); CARBON DIOXIDE 29 mmol/L (22-30); CHLORIDE 110 mmol/L (98-107); GLUCOSE 97 mg/dL (75-110); PHOSPHORUS 3.5 mg/dL (2.5-4.5); POTASSIUM 3.7 mmol/L (3.6-5.0); SODIUM 147.5 mmol/L (137-145)
[2017-07-17] MEDS: HYDRALAZINE HCL 50 MG TABLET PO SCH ×3 (06:07→22:28)
[2017-07-17] MEDS: HEPARIN SOD (PORCINE) 5,000 UNIT/ML 1 ML SYRINGE SUBCUT SCH ×3 (06:07→22:27)
[2017-07-17] MEDS: LEVOTHYROXINE SODIUM 0.075 MG TABLET PO SCH (06:07)
[2017-07-17] MEDS: METOPROLOL TARTRATE 25 MG TABLET PO SCH ×2 (06:07→18:05)
[2017-07-17] MEDS: LACTULOSE SYRUP 20 GM/30 ML UDCUP PO SCH ×2 (10:13→18:06)
[2017-07-17] MEDS: LANSOPRAZOLE 15 MG TAB.RAP.DR PO SCH (10:19)
[2017-07-17] MEDS: CALCIUM CARBONATE 250 MG/VITAMIN D3 125 UNIT TABLET PO SCH ×2 (10:19→22:28)
[2017-07-17] MEDS: TAMSULOSIN HCL 0.4 MG CAP.SR.24H PO SCH ×2 (10:19→22:27)
[2017-07-17] MEDS: CEFUROXIME 250 MG TABLET PO SCH ×2 (10:19→22:28)
[2017-07-17] MEDS: FERROUS SULFATE 325 MG TABLET PO SCH (10:20)
[2017-07-17] MEDS ORDERED: PREDNISONE 10 MG TABLET PO SCH (12:00)
--- NOTE | 2017-07-17 15:52 | PDOC PROGRESS REPORT ---
Subjective Progress Note for:: 07/17/17 Subjective:: Awake and asking to go home. Reason For Visit: HYPERNATREMIA,ACUTE KIDNEY INJURY,LEUKOCYTOSIS, Physical Exam Vital Signs: Temp Pulse Resp BP Pulse Ox 98.7 F 55 L 20 147/74 H 94 07/17/17 11:33 07/17/17 11:33 07/17/17 11:33 07/17/17 11:33 07/17/17 11:33 Intake & Output 07/16/17 07/17/17 07/18/17 05:59 05:59 05:59 Intake Total 1030 750 200 Output Total 100 1850 1000 Balance 930 -1100 -800 Weight 206 lb 9.17 oz 210 lb 15.718 oz General appearance: PRESENT: no acute distress, obese Respiratory exam: PRESENT: clear to auscultation kenneth Cardiovascular exam: PRESENT: RRR GI/Abdominal exam: PRESENT: soft Extremities exam: ABSENT: other - No edema Musculoskeletal exam: PRESENT: normal inspection Neurological exam: PRESENT: awake, CN II-XII grossly intact. ABSENT: motor sensory deficit Psychiatric exam: PRESENT: agitated, unusual affect Skin exam: PRESENT: warm Results Laboratory Results: 07/14/17 05:21 07/17/17 04:25 07/17/17 04:25 Sodium 147.5 H Potassium 3.7 Chloride 110 H Carbon Dioxide 29 Anion Gap 9 BUN 20 Creatinine 0.84 Est GFR ( Amer) > 60 Est GFR (Non-Af Amer) > 60 Glucose 97 Calcium 9.0 Phosphorus 3.5 Magnesium 1.9 Albumin 2.9 L 07/10/17 07/10/17 07/10/17 14:14 14:14 19:55 Creatine Kinase 42 L 35 L CK-MB (CK-2) 2.69 Troponin I 0.244 NT-Pro-B Natriuret Pep 07/10/17 07/11/17 07/11/17 19:55 02:20 02:20 Creatine Kinase 80 CK-MB (CK-2) 2.98 3.67 Troponin I 0.175 0.130 NT-Pro-B Natriuret Pep 07/16/17 07/17/17 05:01 04:25 Creatine Kinase CK-MB (CK-2) Troponin I NT-Pro-B Natriuret Pep 5980 H 3320 H Impressions: Head CT 07/10/17 00:00 IMPRESSION: MILD CHRONIC MICROVASCULAR ISCHEMIA. NO ACUTE IMAGING FINDINGS IN THE BRAIN. EVIDENCE OF ACUTE STROKE: NO. Chest X-Ray 07/11/17 00:00 IMPRESSION: MILD INTERSTITIAL EDEMA. Assessment & Plan - Diagnosis (1) Dementia Qualifiers: Dementia behavioral disturbance: with behavioral disturbance Is this a current diagnosis for this admission?: Yes Plan: Behavior considerably improved. Family who is been living with states he cannot come back there because they cannot deal with them. (2) Hypernatremia Is this a current diagnosis for this admission?: Yes Plan: Continue hypotonic saline (3) Metabolic encephalopathy Is this a current diagnosis for this admission?: Yes Plan: Appears to be at his baseline (4) UTI (urinary tract infection) Qualifiers: Indwelling urinary catheter type: unspecified Is this a current diagnosis for this admission?: Yes Plan: Probably due to obstructive uropathy. Continue current antibiotics. I would complete a 14 day course. (5) Obstructive uropathy Is this a current diagnosis for this admission?: Yes Plan: Continue the Chaves. I will increase his Flomax. I would anticipate that he will probably go home with the Chaves and follow-up with urology as an outpatient. (6) Acute kidney injury Is this a current diagnosis for this admission?: Yes Plan: Roughly at baseline
[2017-07-17] MEDS: METOLAZONE 5 MG TABLET PO SCH (15:57)
[2017-07-17] MEDS: NICOTINE 21 MG/24 HR PATCH.TD24 TD SCH (18:05)
[2017-07-17] MEDS: DIVALPROEX SODIUM 500 MG TAB.SR.24H PO SCH (22:27)
[2017-07-17] MEDS: CLONIDINE HCL 0.1 MG TABLET PO SCH (22:27)
[2017-07-17] MEDS: RISPERIDONE 0.25 MG TABLET PO PRN (22:28)
[2017-07-18] MEDS: METOPROLOL TARTRATE 25 MG TABLET PO SCH ×2 (05:45→18:01)
[2017-07-18] MEDS: HYDRALAZINE HCL 50 MG TABLET PO SCH ×3 (05:45→22:16)
[2017-07-18] MEDS: HEPARIN SOD (PORCINE) 5,000 UNIT/ML 1 ML SYRINGE SUBCUT SCH ×3 (05:45→22:15)
[2017-07-18] MEDS: LEVOTHYROXINE SODIUM 0.075 MG TABLET PO SCH (05:45)
[2017-07-18] MEDS: TAMSULOSIN HCL 0.4 MG CAP.SR.24H PO SCH ×2 (09:42→22:16)
[2017-07-18] MEDS: FERROUS SULFATE 325 MG TABLET PO SCH (09:42)
[2017-07-18] MEDS: LANSOPRAZOLE 15 MG TAB.RAP.DR PO SCH (09:42)
[2017-07-18] MEDS: LACTULOSE SYRUP 20 GM/30 ML UDCUP PO SCH ×2 (09:42→18:01)
[2017-07-18] MEDS: CEFUROXIME 250 MG TABLET PO SCH (09:42)
[2017-07-18] MEDS: CALCIUM CARBONATE 250 MG/VITAMIN D3 125 UNIT TABLET PO SCH ×2 (09:42→22:16)
[2017-07-18] MEDS: METOLAZONE 5 MG TABLET PO SCH (12:42)
--- NOTE | 2017-07-18 13:05 | PROGRESS NOTE E ---
Progress Note NAME: RAMILA JARAMILLO : 1955 AGE: 62Y DATE: 07/18/2017 ROOM: 428 SUBJECTIVE: The patient is a pleasant 62-year-old male who had a past medical history of hypertension, admitted with acute kidney injury, obstructive uropathy, urinary tract infection, metabolic encephalopathy. He is doing better today. The patient had a Crespo placed. His caregiver is not available today who takes care of him. He has a caregiver at home, and he wants to go home actually. OBJECTIVE: GENERAL: Patient is lying in bed comfortable, not in distress. VITAL SIGNS: Temperature is 98.2, heart rate is 50, blood pressure 150/64, saturation 93%, respiratory rate 16. HEENT: Head is normocephalic, atraumatic. Pupils round, reactive to the light and accommodation bilaterally. Extraocular movements intact. Ears: Tympanic membranes are intact bilaterally. No discharge from the ears. No discharge from the nose. NECK: Supple. No increased JVD. No thyromegaly. No lymphadenopathy. CARDIOVASCULAR: Normal S1, S2. Regular rate and rhythm. No murmur. No gallop. RESPIRATORY: Lungs clear. ABDOMEN: Soft. MUSCULOSKELETAL: No edema. NEUROLOGIC: Awake, alert. SKIN: No rash. LABORATORY STUDIES: Sodium 147, creatinine 0.4. White blood count 7.2, hemoglobin 11.9. ASSESSMENT AND PLAN: 1. DEMENTIA. 2. HYPERNATREMIA FROM POOR ORAL INTAKE, IMPROVED WITH IV FLUIDS 3. VIELKA SECONDARY TO OBSTRUCTIVE UROPATHY, IMPROVED. 4. OBSTRUCTIVE UROPATHY FROM BENIGN PROSTATIC HYPERPLASIA, CRESPO PLACED. 5. URINARY TRACT INFECTIONS. 6. METABOLIC ENCEPHALOPATHY. PLAN: 1. Continue IV fluids. 2. Continue antibiotic, cefuroxime. 3. Continue metolazone. DISPOSITION: Home, but he had a caregiver who is staying with him 24 hours. She is not available today. We will discharge the patient probably tomorrow. DICTATING PHYSICIAN: RONALDO CALDWELL M.D. [id number] PHY#: [id number] ID: [id number] JOB#: [id number] ACCT: [id number] cc: >
[2017-07-18] MEDS: NICOTINE 21 MG/24 HR PATCH.TD24 TD SCH (18:02)
[2017-07-18] MEDS: CLONIDINE HCL 0.1 MG TABLET PO SCH (22:16)
[2017-07-18] MEDS: DIVALPROEX SODIUM 500 MG TAB.SR.24H PO SCH (22:16)
[2017-07-19] MEDS: HYDRALAZINE HCL 50 MG TABLET PO SCH ×3 (06:46→22:04)
[2017-07-19] MEDS: HEPARIN SOD (PORCINE) 5,000 UNIT/ML 1 ML SYRINGE SUBCUT SCH ×3 (06:46→22:04)
[2017-07-19] MEDS: METOPROLOL TARTRATE 25 MG TABLET PO SCH ×2 (06:47→17:45)
[2017-07-19] MEDS: LEVOTHYROXINE SODIUM 0.075 MG TABLET PO SCH (06:47)
[2017-07-19 08:18] LABS: ABSOLUTE EOSINOPHILS # (AUTO) 0.2 10^3/uL (0.0-0.6); ABSOLUTE LYMPHOCYTES (AUTO) 3.1 10^3/uL (0.5-4.7); ABSOLUTE MONOCYTES (AUTO) 0.5 10^3/uL (0.1-1.4); ABSOLUTE NEUT (AUTO) 6.5 10^3/uL (1.7-8.2); BASOPHILS % (AUTO) 0.3 % (0-2); HEMATOCRIT 29.3 % (37.9-51.0); HEMOGLOBIN 10.2 g/dL (13.5-17.0); LYMPHOCYTES % (AUTO) 30.1 % (13-45); MEAN CORPUSCULAR HEMOGLOBIN 31.4 pg (27.0-33.4); MEAN CORPUSCULAR HGB CONC 34.7 g/dL (32.0-36.0); MEAN CORPUSCULAR VOLUME 90 fl (80-97); MONOCYTES % (AUTO) 5.2 % (3-13); PLATELET COUNT 192 10^3/uL (150-450); RED BLOOD COUNT 3.24 10^6/uL (4.35-5.55); SEGMENTED NEUTROPHILS % (AUTO) 62.4 % (42-78); TOTAL CELLS COUNTED % (AUTO) 100 %; WHITE BLOOD COUNT 10.3 10^3/uL (4.0-10.5)
[2017-07-19 08:39] LABS: ALBUMIN 2.9 g/dL (3.5-5.0); ANION GAP 8 (5-19); BLOOD UREA NITROGEN 14 mg/dL (7-20); CALCIUM 9.3 mg/dL (8.4-10.2); CARBON DIOXIDE 32 mmol/L (22-30); CHLORIDE 102 mmol/L (98-107); GLUCOSE 85 mg/dL (75-110); PHOSPHORUS 3.8 mg/dL (2.5-4.5); POTASSIUM 3.3 mmol/L (3.6-5.0); SODIUM 142.3 mmol/L (137-145)
[2017-07-19] MEDS: CALCIUM CARBONATE 250 MG/VITAMIN D3 125 UNIT TABLET PO SCH ×2 (09:38→22:03)
[2017-07-19] MEDS: LANSOPRAZOLE 15 MG TAB.RAP.DR PO SCH (09:38)
[2017-07-19] MEDS: TAMSULOSIN HCL 0.4 MG CAP.SR.24H PO SCH ×2 (09:39→22:04)
[2017-07-19] MEDS: FERROUS SULFATE 325 MG TABLET PO SCH (09:39)
[2017-07-19] MEDS: LACTULOSE SYRUP 20 GM/30 ML UDCUP PO SCH ×2 (09:39→17:45)
[2017-07-19] MEDS: METOLAZONE 5 MG TABLET PO SCH (12:18)
[2017-07-19] MEDS: NICOTINE 21 MG/24 HR PATCH.TD24 TD SCH (17:46)
[2017-07-19] MEDS: CLONIDINE HCL 0.1 MG TABLET PO SCH (22:03)
[2017-07-19] MEDS: DIVALPROEX SODIUM 500 MG TAB.SR.24H PO SCH (22:04)
[2017-07-19] MEDS: RISPERIDONE 0.25 MG TABLET PO PRN (22:04)
[2017-07-20] MEDS: LEVOTHYROXINE SODIUM 0.075 MG TABLET PO SCH (05:50)
[2017-07-20] MEDS: METOPROLOL TARTRATE 25 MG TABLET PO SCH ×2 (05:50→17:26)
[2017-07-20] MEDS: HYDRALAZINE HCL 50 MG TABLET PO SCH ×3 (05:50→21:09)
[2017-07-20] MEDS: HEPARIN SOD (PORCINE) 5,000 UNIT/ML 1 ML SYRINGE SUBCUT SCH ×3 (05:50→21:09)
[2017-07-20] MEDS: FERROUS SULFATE 325 MG TABLET PO SCH (09:57)
[2017-07-20] MEDS: LANSOPRAZOLE 15 MG TAB.RAP.DR PO SCH (09:57)
[2017-07-20] MEDS: CALCIUM CARBONATE 250 MG/VITAMIN D3 125 UNIT TABLET PO SCH ×2 (09:57→21:09)
[2017-07-20] MEDS: TAMSULOSIN HCL 0.4 MG CAP.SR.24H PO SCH ×2 (09:58→21:09)
[2017-07-20] MEDS: LACTULOSE SYRUP 20 GM/30 ML UDCUP PO SCH ×2 (09:58→17:26)
[2017-07-20] MEDS ORDERED: POTASSIUM CHLORIDE 10 MEQ TABLET.SA PO ONE (10:00)
[2017-07-20] MEDS: METOLAZONE 5 MG TABLET PO SCH (12:47)
--- NOTE | 2017-07-20 12:59 | PROGRESS NOTE E ---
Progress Note NAME: RAMILA JARAMILLO : 1955 AGE: 62Y DATE: 07/19/2017 ROOM: 428 SUBJECTIVE: The patient is a pleasant 62-year-old male who has a past medical history of hypertension, admitted with acute kidney injury, obstructive uropathy, metabolic encephalopathy. Patient is still agitated, confused. He has a Chaves in place. The primary wants patient to be placed in a long term. OBJECTIVE: GENERAL: Patient is lying in bed, comfortable, not in distress. VITAL SIGNS: Temperature 98.1, heart rate 69, respiratory rate 16, blood pressure 118/61. HEENT: Normocephalic, atraumatic. Pupils equal, round and reactive to light and accommodation bilaterally. Extraocular movements intact. Ears: Tympanic membranes intact bilaterally. No discharge from the ears. No discharge from the nose. NECK: Supple. No increased JVD, no thyromegaly, no lymphadenopathy. CARDIOVASCULAR: Normal S1, S2. Regular rate and rhythm. No murmur, no gallop. RESPIRATORY: Lungs clear. ABDOMEN: Soft. MUSCULOSKELETAL: No edema. NEUROLOGIC: Awake, alert. SKIN: No rash. LABORATORY DATA: White blood count is 10, hemoglobin is 10. Sodium 143, potassium 3.3. ASSESSMENT: 1. DEMENTIA. 2. HYPERNATREMIA, RESOLVING. 3. ACUTE KIDNEY INJURY. 4. OBSTRUCTIVE UROPATHY. 5. BENIGN PROSTATIC HYPERPLASIA. 6. . 7. URINARY TRACT INFECTION. 8. METABOLIC ENCEPHALOPATHY. PLAN: Continue IV fluids. Continue cefuroxime. Continue metolazone. I will discontinue IV antibiotics. MEDICAL NECESSITY: The patient is waiting for placement. DICTATING PHYSICIAN: RONALDO CALDWELL M.D. [id number] PHY#: [id number] ID: [id number] JOB#: [id number] ACCT: [id number] cc: >
[2017-07-20] MEDS: NICOTINE 21 MG/24 HR PATCH.TD24 TD SCH (17:25)
[2017-07-20] MEDS: CLONIDINE HCL 0.1 MG TABLET PO SCH (21:09)
[2017-07-20] MEDS: RISPERIDONE 0.25 MG TABLET PO PRN (21:09)
[2017-07-20] MEDS: DIVALPROEX SODIUM 500 MG TAB.SR.24H PO SCH (21:09)
--- NOTE | 2017-07-20 22:01 | PDOC PROGRESS REPORT ---
Subjective Progress Note for:: 07/20/17 Subjective:: 52-year-old presented with altered mental status found to have E. coli urinary tract infection. Completed a course of antibiotics. Continues to have a Chaves that was inserted on 07/16. Also hypernatremia, improving on fluid support. Reason For Visit: HYPERNATREMIA,ACUTE KIDNEY INJURY,LEUKOCYTOSIS, Physical Exam Vital Signs: Temp Pulse Resp BP Pulse Ox 98.4 F 52 L 17 127/59 H 97 07/20/17 16:00 07/20/17 16:00 07/20/17 16:00 07/20/17 16:00 07/20/17 16:00 Intake & Output 07/19/17 07/20/17 07/21/17 06:59 06:59 06:59 Intake Total 1162 975 690 Output Total 1450 1400 950 Balance -288 -425 -260 Weight 96.2 kg 96.3 kg General appearance: PRESENT: no acute distress, obese Head exam: PRESENT: atraumatic, normocephalic Eye exam: PRESENT: EOMI, PERRLA Ear exam: PRESENT: normal external ear exam. ABSENT: bleeding Mouth exam: PRESENT: moist, neck supple Throat exam: ABSENT: tonsillar exudate, tonsillogmegaly Neck exam: ABSENT: tenderness, thyromegaly Respiratory exam: ABSENT: accessory muscle use, rales, rhonchi, wheezes Cardiovascular exam: PRESENT: RRR, +S1, +S2 Pulses: PRESENT: normal radial pulses, normal dorsalis pedis pul GI/Abdominal exam: PRESENT: soft. ABSENT: mass, rigid Extremities exam: ABSENT: joint swelling, pedal edema Musculoskeletal exam: PRESENT: full ROM. ABSENT: deformity Neurological exam: PRESENT: alert, oriented to person, oriented to place, CN II- XII grossly intact Psychiatric exam: ABSENT: agitated, anxious, flat affect Focused psych exam: ABSENT: delusional, pressured speech Skin exam: ABSENT: pallor, rash Results Laboratory Results: 07/19/17 07:35 07/19/17 07:35 07/10/17 07/10/17 07/10/17 14:14 14:14 19:55 Creatine Kinase 42 L 35 L CK-MB (CK-2) 2.69 Troponin I 0.244 NT-Pro-B Natriuret Pep 07/10/17 07/11/1718 19:55 02:20 02:20 Creatine Kinase 80 CK-MB (CK-2) 2.98 3.67 Troponin I 0.175 0.130 NT-Pro-B Natriuret Pep 07/16/17 07/17/17 05:01 04:25 Creatine Kinase CK-MB (CK-2) Troponin I NT-Pro-B Natriuret Pep 5980 H 3320 H Impressions: Head CT 07/10/17 00:00 IMPRESSION: MILD CHRONIC MICROVASCULAR ISCHEMIA. NO ACUTE IMAGING FINDINGS IN THE BRAIN. EVIDENCE OF ACUTE STROKE: NO. Chest X-Ray 07/11/17 00:00 IMPRESSION: MILD INTERSTITIAL EDEMA. Assessment & Plan - Diagnosis (1) Altered mental status Qualifiers: Altered mental status type: unspecified Qualified Code(s): R41.82 - Altered mental status, unspecified Is this a current diagnosis for this admission?: Yes Plan: Continues to be somewhat altered today. He did complete a course of antibiotics for his urinary tract infection. His hypernatremia is improving on IV fluid support. Suspect underlying dementia With some delirium. Continue to monitor. Caregiver at home requests that he be placed. Patient is upset about this. Patient would be suitable for a memory care unit in a retirement facility. (2) Acute kidney injury Is this a current diagnosis for this admission?: Yes Plan: Acute renal injury appears to be improving. (3) Dementia Qualifiers: Dementia behavioral disturbance: with behavioral disturbance Is this a current diagnosis for this admission?: Yes Plan: Patient may currently be at his baseline status. Is alert and oriented 2. Was able to describe his living situation. Is upset that he is not currently being let out of the hospital. I do agree given his high dependency on activities of daily living and lack of support in his home environment that he would benefit from retirement facility. (4) Hypernatremia Is this a current diagnosis for this admission?: Yes Plan: Improved sodium level with supportive IV fluids. (5) Urinary tract infection Qualifiers: Urinary tract infection type: site unspecified Hematuria presence: with hematuria Qualified Code(s): N39.0 - Urinary tract infection, site not specified; R31.9 - Hematuria, unspecified; R31.9 - Hematuria, unspecified Is this a current diagnosis for this admission?: Yes Plan: Pleated course of antibiotics.
[2017-07-21] MEDS: METOPROLOL TARTRATE 25 MG TABLET PO SCH ×2 (05:17→18:34)
[2017-07-21] MEDS: HYDRALAZINE HCL 50 MG TABLET PO SCH ×3 (05:17→21:08)
[2017-07-21] MEDS: LEVOTHYROXINE SODIUM 0.075 MG TABLET PO SCH (05:17)
[2017-07-21] MEDS: HEPARIN SOD (PORCINE) 5,000 UNIT/ML 1 ML SYRINGE SUBCUT SCH ×3 (05:37→21:08)
[2017-07-21] MEDS: TAMSULOSIN HCL 0.4 MG CAP.SR.24H PO SCH ×2 (10:42→21:08)
[2017-07-21] MEDS: FERROUS SULFATE 325 MG TABLET PO SCH (10:42)
[2017-07-21] MEDS: LACTULOSE SYRUP 20 GM/30 ML UDCUP PO SCH ×2 (10:42→18:34)
[2017-07-21] MEDS: LANSOPRAZOLE 15 MG TAB.RAP.DR PO SCH (10:42)
[2017-07-21] MEDS: CALCIUM CARBONATE 250 MG/VITAMIN D3 125 UNIT TABLET PO SCH ×2 (10:42→21:07)
[2017-07-21] MEDS: METOLAZONE 5 MG TABLET PO SCH (13:56)
[2017-07-21] MEDS: NICOTINE 21 MG/24 HR PATCH.TD24 TD SCH (18:34)
[2017-07-21] MEDS: DIVALPROEX SODIUM 500 MG TAB.SR.24H PO SCH (21:08)
[2017-07-21] MEDS: CLONIDINE HCL 0.1 MG TABLET PO SCH (21:08)
--- NOTE | 2017-07-21 21:31 | PDOC PROGRESS REPORT ---
Subjective Progress Note for:: 07/21/17 Subjective:: 52-year-old presented with altered mental status found to have E. coli urinary tract infection. Completed a course of antibiotics. Continues to have a Chaves that was inserted on 07/16. Also hypernatremia, improved on fluid support. Patient at present is not safe to discharge. Given his significant limitations and dementia, a supportive halfway facility environment is pending. Patient's prior caregivers are nonrelated individuals, that have clearly stated they are unable to take him back in and care for him. Discharge planning is assisting in the effort to place this patient in a supportive environment at discharge. Today patient's Chaves was removed. Reason For Visit: HYPERNATREMIA,ACUTE KIDNEY INJURY,LEUKOCYTOSIS, Physical Exam Vital Signs: Temp Pulse Resp BP Pulse Ox 98.2 F 55 L 19 125/61 93 07/21/17 15:45 07/21/17 15:45 07/21/17 15:45 07/21/17 15:45 07/21/17 15:45 Intake & Output 07/20/17 07/21/17 07/22/17 06:59 06:59 06:59 Intake Total 975 1170 731 Output Total 1400 1770 900 Balance -425 -600 -169 Weight 96.3 kg General appearance: PRESENT: no acute distress, obese Head exam: PRESENT: atraumatic, normocephalic Eye exam: PRESENT: EOMI, PERRLA Ear exam: PRESENT: normal external ear exam. ABSENT: bleeding Mouth exam: PRESENT: moist, neck supple Throat exam: ABSENT: post pharyngeal erythema, tonsillar exudate Neck exam: PRESENT: full ROM. ABSENT: JVD, tenderness, thyromegaly Respiratory exam: ABSENT: accessory muscle use, rales, rhonchi, wheezes Cardiovascular exam: PRESENT: RRR, +S1, +S2 Pulses: PRESENT: normal radial pulses, normal dorsalis pedis pul Vascular exam: PRESENT: normal capillary refill. ABSENT: pallor GI/Abdominal exam: PRESENT: soft. ABSENT: distended, firm, rigid Extremities exam: ABSENT: calf tenderness, joint swelling, pedal edema Musculoskeletal exam: PRESENT: ambulatory, full ROM Neurological exam: PRESENT: alert, oriented to person, oriented to place Psychiatric exam: PRESENT: agitated. ABSENT: anxious Focused psych exam: ABSENT: paranoid, pressured speech Skin exam: PRESENT: normal color. ABSENT: cyanosis, mottled Results Laboratory Results: 07/19/17 07:35 07/19/17 07:35 07/10/17 07/10/17 07/10/17 14:14 14:14 19:55 Creatine Kinase 42 L 35 L CK-MB (CK-2) 2.69 Troponin I 0.244 NT-Pro-B Natriuret Pep 07/10/17 07/11/17 07/11/17 19:55 02:20 02:20 Creatine Kinase 80 CK-MB (CK-2) 2.98 3.67 Troponin I 0.175 0.130 NT-Pro-B Natriuret Pep 07/16/17 07/17/17 05:01 04:25 Creatine Kinase CK-MB (CK-2) Troponin I NT-Pro-B Natriuret Pep 5980 H 3320 H Impressions: Head CT 07/10/17 00:00 IMPRESSION: MILD CHRONIC MICROVASCULAR ISCHEMIA. NO ACUTE IMAGING FINDINGS IN THE BRAIN. EVIDENCE OF ACUTE STROKE: NO. Chest X-Ray 07/11/17 00:00 IMPRESSION: MILD INTERSTITIAL EDEMA. Assessment & Plan - Diagnosis (1) Altered mental status Qualifiers: Altered mental status type: unspecified Qualified Code(s): R41.82 - Altered mental status, unspecified Is this a current diagnosis for this admission?: Yes Plan: Patient has a demented baseline and needs assistance is in his activities of daily living. A safe discharge environment is currently being sought by the materials planner. Patient's prior living situation was supported by friends who are no longer able to support him or take him back. Pending safe discharge disposition. (2) Acute kidney injury Is this a current diagnosis for this admission?: Yes Plan: Resolved (3) Dementia Qualifiers: Dementia behavioral disturbance: with behavioral disturbance Is this a current diagnosis for this admission?: Yes Plan: [facility] facility disposition pending. Patient appears to be at his baseline mentation. (4) Hypernatremia Is this a current diagnosis for this admission?: Yes Plan: Improved. (5) Urinary tract infection Qualifiers: Urinary tract infection type: site unspecified Hematuria presence: with hematuria Qualified Code(s): N39.0 - Urinary tract infection, site not specified; R31.9 - Hematuria, unspecified; R31.9 - Hematuria, unspecified Is this a current diagnosis for this admission?: Yes Plan: Completed a course of antibiotics - Time Time Spent with patient: 15-24 minutes - Inpatient Certification Based on my medical assessment, after consideration of the patient's comorbidities, presenting symptoms, or acuity I expect that the services needed warrant INPATIENT care.: Yes I certify that my determination is in accordance with my understanding of Medicare's requirements for reasonable and necessary INPATIENT services [42 CFR 412.3e].: Yes Medical Necessity: Need Close Monitoring Due to Risk of Patient Decompensation
[2017-07-22] MEDS: LEVOTHYROXINE SODIUM 0.075 MG TABLET PO SCH (06:05)
[2017-07-22] MEDS: HYDRALAZINE HCL 50 MG TABLET PO SCH ×2 (06:05→16:31)
[2017-07-22] MEDS: METOPROLOL TARTRATE 25 MG TABLET PO SCH (06:05)
[2017-07-22] MEDS: HEPARIN SOD (PORCINE) 5,000 UNIT/ML 1 ML SYRINGE SUBCUT SCH ×2 (06:06→16:31)
[2017-07-22 06:23] LABS: HEMATOCRIT 31.3 % (37.9-51.0); HEMOGLOBIN 10.6 g/dL (13.5-17.0); MEAN CORPUSCULAR HEMOGLOBIN 30.9 pg (27.0-33.4); MEAN CORPUSCULAR VOLUME 91 fl (80-97); PLATELET COUNT 200 10^3/uL (150-450); RED BLOOD COUNT 3.44 10^6/uL (4.35-5.55); RED CELL DISTRIBUTION WIDTH 14.1 % (11.5-14.0); WHITE BLOOD COUNT 7.6 10^3/uL (4.0-10.5)
[2017-07-22 06:55] LABS: ALBUMIN 3.4 g/dL (3.5-5.0); ANION GAP 11 (5-19); BLOOD UREA NITROGEN 17 mg/dL (7-20); CALCIUM 9.4 mg/dL (8.4-10.2); CARBON DIOXIDE 32 mmol/L (22-30); CHLORIDE 99 mmol/L (98-107); GLUCOSE 88 mg/dL (75-110); PHOSPHORUS 4.6 mg/dL (2.5-4.5); POTASSIUM 3.6 mmol/L (3.6-5.0); SODIUM 142.2 mmol/L (137-145)
[2017-07-22] MEDS: LANSOPRAZOLE 15 MG TAB.RAP.DR PO SCH (08:45)
[2017-07-22] MEDS: CALCIUM CARBONATE 250 MG/VITAMIN D3 125 UNIT TABLET PO SCH (10:44)
[2017-07-22] MEDS: TAMSULOSIN HCL 0.4 MG CAP.SR.24H PO SCH (10:45)
[2017-07-22] MEDS: LACTULOSE SYRUP 20 GM/30 ML UDCUP PO SCH (10:45)
[2017-07-22] MEDS: FERROUS SULFATE 325 MG TABLET PO SCH (10:45)
[2017-07-22] MEDS: METOLAZONE 5 MG TABLET PO SCH (13:14)
--- NOTE | 2017-07-22 16:56 | PDOC DISCHARGE SUMMARY ---
General - Admit/Disc Date/PCP Admission Date/Primary Care Provider: 07/07/17 13:53 JOSÉ LLANOS, Discharge Date: 07/22/17 - Discharge Diagnosis (1) UTI (urinary tract infection) Is this a current diagnosis for this admission?: Yes Summary: Presented with E. coli UTI and AMS. Received appropriate antibiotic course Had harrison during admission which was removed on 07/21. Has been voiding well on . Mental status back to baseline. Discussed with landcare facilitator on day of discharge. (2) Altered mental status Is this a current diagnosis for this admission?: Yes Summary: Patient is demented at baseline and needs assistance with ADLs. Hospitalization discussed with patient's caregiver. All her questions were answered to her satisfaction and felt comfortable with discharging him back to home. (3) Schizophrenia Is this a current diagnosis for this admission?: Yes Summary: Known history. (4) Hypernatremia Is this a current diagnosis for this admission?: Yes Summary: Resolved, Na 142 on 07/22. (5) Hypertension Is this a current diagnosis for this admission?: Yes Summary: Noted to have elevated BPs this admission. Was started on Lopressor, Hydralazine , and Catapres with improvement in BPs. On day of discharge, BPs were wnl. Given excellent control, I discontinued Catapres. Scripts given for Lopressor and Hydralazine. Recommended compliance lead to check BP's at home. Should continue to be monitored by PCP and adjusted appropriately - Additional Information Resuscitation Status: Full Code Discharge Diet: As Tolerated Discharge Activity: Activity As Tolerated Prescriptions: Hydralazine HCl [Apresoline 50 mg Tablet] 50 mg PO Q8 #90 tablet Metoprolol Tartrate [Lopressor 25 mg Tablet] 25 mg PO Q12A #60 tablet Risperidone [Risperdal 0.25 mg Tablet] 0.25 mg PO BIDP PRN #30 tablet PRN Reason: Tamsulosin HCl [Flomax 0.4 mg Cap.sr] 0.4 mg PO Q12 #60 cap.sr.24h Home Medications: Calcium Carbonate/Vitamin D3 [Calcium 600 + Vit D 400 Tablet] 1 tab PO Q12 11/09 Ferrous Sulfate 325 mg PO DAILY 04/25/16 Pravastatin Sodium 10 mg PO QHS 04/25/16 Levothyroxine Sodium [Synthroid 0.075 mg Tablet] 0.075 mg PO Q6AM 09/26/16 Divalproex Sodium [Divalproex Sodium ER] 1,500 mg PO QHS 06/27/17 Ibuprofen [Motrin 800 mg Tablet] 800 mg PO Q12 06/27/17 Lansoprazole [Prevacid 15 mg Odt Tablet] 15 mg PO [id number] 07/07/17 Hydralazine HCl [Apresoline 50 mg Tablet] 50 mg PO Q8 #90 tablet 07/17/17 Metoprolol Tartrate [Lopressor 25 mg Tablet] 25 mg PO Q12A #60 tablet 07/17/17 Nicotine [Nicoderm 21 mg/24 Hr Transderm Patch] 1 each TD QPM patch.td24 Risperidone [Risperdal 0.25 mg Tablet] 0.25 mg PO BIDP PRN #30 tablet 07/17/17 Tamsulosin HCl [Flomax 0.4 mg Cap.sr] 0.4 mg PO Q12 #60 cap.sr.24h 07/17/17 History of Present Illness History of Present Illness: RAMILA JARAMILLO is a 62 year old male with multiple comorbidities including HLD , HTN, history of CVA in 2016, dementia, bipolar disorder and schizophrenia brought for decreased activity and altered mental status. Since patient has underlying dementia and cognitive impairment is not source of history and there was no family members during my encounter. Brief history is obtained from the ER attending note. His compliance lead reports that Thursday ,07/01/17 he was lethargic and he had stopped his medications but that morning he was fine all the way up until last night when he started to ramble and was not making sense. Patient was taken today to his primary care physician office who referred him to ED. His initial blood workup shows significant cytosis of 23, 000 and hyponatremia with sodium of 150 and acute kidney injury with creatinine of 1.39, thrombocytopenia 72 and his urinalysis positive for large leukocyte esterase and WBC. Admitted to hospitalist service on 07/07/17. Physical Exam Vital Signs: Temp Pulse Resp BP Pulse Ox 98.2 F 56 L 17 127/24 H 92 07/22/17 15:42 07/22/17 15:42 07/22/17 15:42 07/22/17 15:42 07/22/17 15:42 Intake & Output 07/21/17 07/22/17 07/23/17 06:59 06:59 06:59 Intake Total 1170 1156 Output Total 1770 1100 Balance -600 56 Weight 93 kg General appearance: PRESENT: no acute distress, disheveled, obese Head exam: PRESENT: normocephalic Mouth exam: PRESENT: moist Respiratory exam: PRESENT: unlabored. ABSENT: tachypnea, wheezes Cardiovascular exam: PRESENT: +S1, +S2. ABSENT: tachycardia GI/Abdominal exam: PRESENT: soft. ABSENT: tenderness Extremities exam: PRESENT: full ROM Musculoskeletal exam: PRESENT: ambulatory Neurological exam: PRESENT: awake, oriented to person. ABSENT: oriented to place, oriented to time Psychiatric exam: PRESENT: agitated - At times, re-orientable Results Laboratory Results: 07/22/17 06:08 07/22/17 06:08 07/22/17 07/22/17 06:08 06:08 WBC 7.6 RBC 3.44 L Hgb 10.6 L Hct 31.3 L MCV 91 MCH 30.9 MCHC 34.0 RDW 14.1 H Plt Count 200 Sodium 142.2 Potassium 3.6 Chloride 99 Carbon Dioxide 32 H Anion Gap 11 BUN 17 Creatinine 1.05 Est GFR ( Amer) > 60 Est GFR (Non-Af Amer) > 60 Glucose 88 Calcium 9.4 Phosphorus 4.6 H Albumin 3.4 L 07/10/17 07/10/17 07/10/17 14:14 14:14 19:55 Creatine Kinase 42 L 35 L CK-MB (CK-2) 2.69 Troponin I 0.244 NT-Pro-B Natriuret Pep 07/10/17 07/11/17 07/11/17 19:55 02:20 02:20 Creatine Kinase 80 CK-MB (CK-2) 2.98 3.67 Troponin I 0.175 0.130 NT-Pro-B Natriuret Pep 07/16/17 07/17/17 05:01 04:25 Creatine Kinase CK-MB (CK-2) Troponin I NT-Pro-B Natriuret Pep 5980 H 3320 H Impressions: Head CT 07/10/17 00:00 IMPRESSION: MILD CHRONIC MICROVASCULAR ISCHEMIA. NO ACUTE IMAGING FINDINGS IN THE BRAIN. EVIDENCE OF ACUTE STROKE: NO. Chest X-Ray 06/02/18 00:00 IMPRESSION: MILD INTERSTITIAL EDEMA. Qualifiers - * PATIENT BEING DISCHARGED WITH ANY OF THE FOLLOWING DIAGNOSIS: No Plan Discharge Plan: Discharge to home with caregiver Time Spent: Less than 30 Minutes
[2017-07-22 18:01] VITALS: BP 118/51
== END 2017-07-22 18:48 | disposition home health service (06) | DRG 689 ==
LOC: ER 09:34 → EH 13:53 → 4S 18:50
PROVIDERS: ADMIT Internal Medicine; ATTEND Internal Medicine
DX: N39.0 Urinary tract infection, site not specified (principal); G93.41 Metabolic encephalopathy; E87.1 Hypo-osmolality and hyponatremia; N17.9 Acute kidney failure, unspecified; F03.91 Unspecified dementia, unspecified severity, with behavioral disturbance; Z86.73 Personal history of transient ischemic attack (TIA), and cerebral infarction without residual deficits; F31.9 Bipolar disorder, unspecified; Z78.1 Physical restraint status; F20.9 Schizophrenia, unspecified; G31.84 Mild cognitive impairment of uncertain or unknown etiology; E78.5 Hyperlipidemia, unspecified; F17.200 Nicotine dependence, unspecified, uncomplicated; D72.829 Elevated white blood cell count, unspecified; B96.20 Unspecified Escherichia coli [E. coli] as the cause of diseases classified elsewhere; R74.8 Abnormal levels of other serum enzymes; N40.1 Benign prostatic hyperplasia with lower urinary tract symptoms; N13.8 Other obstructive and reflux uropathy; I10 Essential (primary) hypertension; D69.6 Thrombocytopenia, unspecified; Z79.899 Other long term (current) drug therapy; Z91.14 Patient's other noncompliance with medication regimen
CPT/HCPCS: 36415; 36600; 70450; 71045; 80048; 80053; 80069; 80164; 80202; 81001; 82140; 82550; 82553; 82607; 82803; 82962; 83605; 83735; 83880; 84100; 84484; 85025; 85027; 85610; 87040; 87086; 87088; 87186; 93005; 93010; 94640; 96361; 96365; 99285; J0360; J0692; J1630; J1644; J1940; J2060; J2543; J3370; J3480; J3490; J7030; J7060; J7512; J7620

== ENCOUNTER → 2017-08-17 | Outpatient (CLI) | payer MEDICAID | LOC: OD 07:51 | PROVIDERS: ATTEND Nurse Practitioner Psychiatric/Mental Health | DX: F20.9 Schizophrenia, unspecified (principal); Z79.899 Other long term (current) drug therapy | CPT/HCPCS: 36415; 80164 ==

== ENCOUNTER → 2017-08-20 | Outpatient (CLI) | payer MEDICAID | LOC: OD 07:11 | PROVIDERS: ATTEND Nurse Practitioner Psychiatric/Mental Health | DX: F20.9 Schizophrenia, unspecified (principal); Z79.899 Other long term (current) drug therapy | CPT/HCPCS: 36415; 80164 ==

== ENCOUNTER → 2017-08-31 | Outpatient (CLI) | payer MEDICAID ==
[2017-08-31 08:43] LABS: ALANINE AMINOTRANSFERASE 20 U/L (21-72); ALBUMIN 3.5 g/dL (3.5-5.0); ALKALINE PHOSPHATASE 47 U/L (38-126); ANION GAP 14 (5-19); ASPARTATE AMINO TRANSFERASE 12 U/L (17-59); BILIRUBIN,DIRECT 0.3 mg/dL (0.0-0.4); BILIRUBIN,TOTAL 0.3 mg/dL (0.2-1.3); BLOOD UREA NITROGEN 13 mg/dL (7-20); CARBON DIOXIDE 23 mmol/L (22-30); CHLORIDE 110 mmol/L (98-107); GLUCOSE 90 mg/dL (75-110); POTASSIUM 3.8 mmol/L (3.6-5.0); SODIUM 146.8 mmol/L (137-145); TOTAL PROTEIN 6.3 g/dL (6.3-8.2)
== END ==
LOC: OD 07:07
PROVIDERS: ATTEND Nurse Practitioner Psychiatric/Mental Health
DX: F20.9 Schizophrenia, unspecified (principal); Z79.899 Other long term (current) drug therapy
CPT/HCPCS: 36415; 80053

== ENCOUNTER → 2017-09-16 | Outpatient (CLI) | payer MEDICAID | LOC: OD 07:33 | PROVIDERS: ATTEND Nurse Practitioner Psychiatric/Mental Health | DX: F20.9 Schizophrenia, unspecified (principal) | CPT/HCPCS: 36415; 80183 ==

== ENCOUNTER 2017-10-05 09:20 | Emergency (ER) | payer MEDICAID ==
--- NOTE | 2017-10-05 09:55 | ER Document Report ---
ED Medical Screen (RME) - General Chief Complaint: Fall Injury Stated Complaint: ARM INJURY/PAIN Time Seen by Provider: 10/05/17 09:36 Notes: 62-year-old male with history of schizophrenia and bipolar disorder states that he fell a few days ago and has pain in his left arm. Also complaining of abdominal pain, bloating, weakness, fatigue. Caregiver/friend that is with patient states that he had a recent medication change and was taken off of Depakote and now on Trileptal. Patient has multiple other complaints as well. States that he is about to fall out of his chair, needs a bed very quickly, right eye hurts, left arm, left shoulder, left elbow. I have greeted and performed a rapid initial assessment of this patient. A comprehensive ED assessment and evaluation of the patient, analysis of test results and completion of the medical decision making process will be conducted by additional ED providers. TRAVEL OUTSIDE OF THE [place] IN LAST 30 DAYS: No - Related Data Allergies/Adverse Reactions: No Known Allergies Allergy (Verified 10/05/17 09:21) Past Medical History - Past Medical History Cardiac Medical History: Reports: Hx Hypercholesterolemia, Hx Hypertension - Takes Minipress, caregiver says its for his mental health Denies: Hx Coronary Artery Disease, Hx Heart Attack Pulmonary Medical History: Reports: Hx Pneumonia Denies: Hx Asthma, Hx Bronchitis, Hx COPD Neurological Medical History: Reports: Hx Cerebrovascular Accident - 2016, unsteady gait-uses walker , slurred speech , Hx Seizures Endocrine Medical History: Reports: Hx Hyperthyroidism, Hx Hypothyroidism Renal/ Medical History: Denies: Hx Peritoneal Dialysis Musculoskeltal Medical History: Reports Hx Arthritis - c/o leg and back pain , Reports Hx Muscle Spasm, Reports Hx Musculoskeletal Deformity, Reports Hx Musculoskeletal Trauma Psychiatric Medical History: Reports: Hx Anxiety, Hx Bipolar Disorder, Hx Depression, Hx Schizoaffective Disorder, Hx Schizophrenia - PARANOID Past Surgical History: Reports: Hx Orthopedic Surgery - Immunizations Immunizations up to date: Yes Hx Diphtheria, Pertussis, Tetanus Vaccination: No Physical Exam - Vital signs Vitals: Temp Pulse Resp BP Pulse Ox 98.5 F 44 L 20 178/55 H 94 10/05/17 09:35 10/05/17 09:35 10/05/17 09:35 10/05/17 09:35 10/05/17 09:35 Course - Vital Signs Vital signs: Temp Pulse Resp BP Pulse Ox 98.5 F 44 L 20 178/55 H 94 10/05/17 09:35 10/05/17 09:35 10/05/17 09:35 10/05/17 09:35 10/05/17 09:35 Doctor's Discharge - Discharge Referrals: GERHARD FELDMAN NP [Primary Care Provider] - Follow up as needed
[2017-10-05 10:53] LABS: ABSOLUTE LYMPHOCYTES (AUTO) 1.6 10^3/uL (0.5-4.7); ABSOLUTE MONOCYTES (AUTO) 0.5 10^3/uL (0.1-1.4); ABSOLUTE NEUT (AUTO) 9.2 10^3/uL (1.7-8.2); BASOPHILS % (AUTO) 0.2 % (0-2); HEMATOCRIT 36.7 % (37.9-51.0); HEMOGLOBIN 12.8 g/dL (13.5-17.0); LYMPHOCYTES % (AUTO) 14.2 % (13-45); MEAN CORPUSCULAR HEMOGLOBIN 30.9 pg (27.0-33.4); MEAN CORPUSCULAR VOLUME 88 fl (80-97); MONOCYTES % (AUTO) 4.4 % (3-13); PLATELET COUNT 267 10^3/uL (150-450); RED BLOOD COUNT 4.15 10^6/uL (4.35-5.55); RED CELL DISTRIBUTION WIDTH 14.3 % (11.5-14.0); SEGMENTED NEUTROPHILS % (AUTO) 81.2 % (42-78); TOTAL CELLS COUNTED % (AUTO) 100 %; WHITE BLOOD COUNT 11.3 10^3/uL (4.0-10.5)
--- NOTE | 2017-10-05 11:07 | ER Document Report ---
ED Fall - General Chief Complaint: Fall Injury Stated Complaint: ARM INJURY/PAIN Time Seen by Provider: 10/05/17 09:36 Information source: Patient, POA - Power of Order Puller Notes: Patient is a 62-year-old male with past medical history as recorded who presents today after the patient states he fell on Thursday. It was an unwitnessed fall. Patient states he tripped over a chair. Patient states he landed on his left arm. He denies hitting his head. He denies any chest pain, weakness or numbness before the fall. Patient also fell around 1 week ago as well. He states this also was from a tripping mechanism. Patient has pain to his left arm. He also states that he has had some decreased site and irritation to his right eye for 2 days. He also states some diffuse abdominal pain, upper greater than lower, starting 2 days ago as well. He states vomiting nonbloody nonbilious emesis 1. He has never had pain previously to this location. He denies any aggravating or relieving factors. He denies any radiation of the pain. He denies any neck pain, rib pain anterior posteriorly, lower back pain, or lower extremity pain. Patient lives alone. He does have a care provider who is power of contract attorney who is just a friend that he has known for 25 years. TRAVEL OUTSIDE OF THE [place] IN LAST 30 DAYS: No - HPI Occurred: Other Where: Home Context: Tripped Associated symptoms: denies: Lost consciousness Location of injury/pain: Other Quality of pain: Achy Severity: Mild Pain Level: 2 Prehospital interventions: Other - Related data Allergies/Adverse Reactions: No Known Allergies Allergy (Verified 10/05/17 09:21) Past Medical History - Social History Smoking Status: Unknown if Ever Smoked Cigarette use (# per day): No Chew tobacco use (# tins/day): No Smoking Education Provided: No Frequency of alcohol use: None Family History: None, Reviewed & Not Pertinent Patient has suicidal ideation: No Patient has homicidal ideation: No - Past Medical History Cardiac Medical History: Reports: Hx Hypercholesterolemia, Hx Hypertension - Takes Minipress, caregiver says its for his mental health Denies: Hx Coronary Artery Disease, Hx Heart Attack Pulmonary Medical History: Reports: Hx Pneumonia Denies: Hx Asthma, Hx Bronchitis, Hx COPD Neurological Medical History: Reports: Hx Cerebrovascular Accident - 2016, unsteady gait-uses walker , slurred speech , Hx Seizures Endocrine Medical History: Reports: Hx Hyperthyroidism, Hx Hypothyroidism Renal/ Medical History: Denies: Hx Peritoneal Dialysis Musculoskeletal Medical History: Reports Hx Arthritis - c/o leg and back pain , Reports Hx Muscle Spasm, Reports Hx Musculoskeletal Deformity, Reports Hx Musculoskeletal Trauma Psychiatric Medical History: Reports: Hx Anxiety, Hx Bipolar Disorder, Hx Depression, Hx Schizoaffective Disorder, Hx Schizophrenia - PARANOID Past Surgical History: Reports: Hx Orthopedic Surgery - Immunizations Immunizations up to date: Yes Hx Diphtheria, Pertussis, Tetanus Vaccination: No Review of Systems - Review of Systems Constitutional: denies: Fever EENT: Eye discharge, Blurred vision Cardiovascular: denies: Chest pain, Palpitations Respiratory: denies: Short of breath Gastrointestinal: denies: Vomiting Genitourinary: denies: Dysuria Musculoskeletal: denies: Leg swelling Neurological/Psychological: Other - no slurred speech -: Yes All other systems reviewed and negative Physical Exam - Vital signs Vitals: Temp Pulse Resp BP Pulse Ox 98.5 F 44 L 20 178/55 H 94 10/05/17 09:35 10/05/17 09:35 10/05/17 09:35 10/05/17 09:35 10/05/17 09:35 Notes: Reviewed vital signs and nursing note as charted by RN. CONSTITUTIONAL: Alert and oriented and responds appropriately to questions. Well -appearing; well-nourished HEAD: Normocephalic; atraumatic EYES: Patient has some opaqueness to the right pupil. It is nonreactive. Sclerae injected. There is no periorbital swelling. Full extraocular range of motion. ENT: Normal nose; no rhinorrhea; moist mucous membranes; pharynx without lesions noted NECK: Supple without meningismus; non-tender CARD: Regular rate and rhythm; no murmurs; symmetric distal pulses RESP: Normal chest excursion without splinting or tachypnea; breath sounds clear and equal bilaterally ABD/GI: Normal bowel sounds; non-distended; soft, tenderness to palpation of the epigastric and periumbilical region. No rebound or guarding. No palpable masses or abdominal bruits present BACK: The back appears normal and is non-tender to palpation, there is no CVA tenderness EXT: Patient has some ecchymosis and bruising to the right proximal humerus. Neurovascularly intact distally with good rest room matron strength, capillary refill, pulses, and sensation SKIN: See above NEURO: With the exception of the right pupil, CN II through XII are intact. 5 out of 5 bilateral upper and lower extremity strength PSYCH: The patient's mood and manner are appropriate. Grooming and personal hygiene are appropriate. Course - Re-evaluation Re-evalutation: Given the above history and physical examination we will perform a fluorescein exam, Horacio-Pen pressure exam, CT scan of the head, and EKG, and an x-ray of the left humerus and a three-way x-ray of the abdomen. 10/05/17 11:11 X-rays recorded. I will place the patient in a sling. I see no obvious abdominal obstruction. I will proceed with a CT scan of the abdomen and pelvis in addition to the CT of the head. EKG shows a heart rate of 53, normal sinus rhythm, right bundle branch block with a left anterior fascicular block. PVCs present. No obvious ST elevation or depression. Old EKG from June 2017 shows a persistent right bundle branch block with a left anterior fascicular block 10/05/17 12:09 On fluorescein examination I do not see any obvious uptake. I do not see any foreign body on reexamination. Patient started to develop some mild ecchymosis to the right lower eye. Still full extraocular range of motion. Corneas still cloudy. Horacio-Pen pressure was 222 respectively. 10/05/17 12:52 Sling to the arm. CT scan of the head, abdomen and pelvis unremarkable. No change in examination. We do not have an adoption specialist manager transmission here at the hospital at this time. We have multiple in the community that are willing to help you in the emergency department. I will attempt to call one to have the patient go directly from this emergency department to the office for further evaluation of the eye. 10/05/17 13:06 I called and spoke directly to Dr. Hernandez, on-call for ophthalmology. He states that he will be able to work the patient in the clinic today. We will attempt to help expedite transport to the clinic. The change in examination. Patient will be discharged home with strict return precautions and follow-up with ophthalmology as well as orthopedics on an outpatient basis for reassessment of his left arm. - Vital Signs Vital signs: Temp Pulse Resp BP Pulse Ox 98.5 F 44 L 20 178/55 H 94 10/05/17 09:35 10/05/17 09:35 10/05/17 09:35 10/05/17 09:35 10/05/17 09:35 - Laboratory Result Diagrams: 10/05/17 10:22 10/05/17 10:22 Laboratory results interpreted by me: 10/05/17 10/05/17 10:22 10:22 WBC 11.3 H RBC 4.15 L Hgb 12.8 L Hct 36.7 L RDW 14.3 H Seg Neutrophils % 81.2 H Absolute Neutrophils 9.2 H Sodium 131.1 L Chloride 92 L BUN 6 L Glucose 123 H AST 13 L ALT 19 L Valproic Acid < 10.0 L Discharge - Discharge Clinical Impression: Blurred vision, right eye Accidental fall Qualifiers: Encounter type: initial encounter Qualified Code(s): W19.XXXA - Unspecified fall, initial encounter Left humeral fracture Qualifiers: Encounter type: initial encounter Humerus Location: surgical neck Fracture type : closed Fracture morphology: unspecified fracture morphology Fracture alignment : displaced Qualified Code(s): S42.212A - Unspecified displaced fracture of surgical neck of left humerus, initial encounter for closed fracture Condition: Fair Disposition: HOME, SELF-CARE Additional Instructions: Please leave here and go directly to the adoption specialist office that we have provided for you to see Dr. Ellis. Please make sure you also follow-up with orthopedics as we have discussed. Referrals: GERHARD FELDMAN NP [Primary Care Provider] - Follow up as needed BRODY LUX MD [ACTIVE STAFF] - Follow up as needed SEPIDEH POND MD [ACTIVE STAFF] - Follow up as needed
[2017-10-05 11:09] LABS: ALANINE AMINOTRANSFERASE 19 U/L (21-72); ALBUMIN 4.1 g/dL (3.5-5.0); ALKALINE PHOSPHATASE 56 U/L (38-126); ANION GAP 13 (5-19); ASPARTATE AMINO TRANSFERASE 13 U/L (17-59); BILIRUBIN,DIRECT 0.3 mg/dL (0.0-0.4); BILIRUBIN,TOTAL 0.5 mg/dL (0.2-1.3); BLOOD UREA NITROGEN 6 mg/dL (7-20); CALCIUM 9.5 mg/dL (8.4-10.2); CARBON DIOXIDE 26 mmol/L (22-30); CHLORIDE 92 mmol/L (98-107); GLUCOSE 123 mg/dL (75-110); POTASSIUM 3.8 mmol/L (3.6-5.0); SODIUM 131.1 mmol/L (137-145); TOTAL PROTEIN 7.3 g/dL (6.3-8.2)
--- NOTE | 2017-10-05 11:12 | RADIOLOGY REPORT (SQ) ---
EXAM DESCRIPTION: HUMERUS LEFT COMPLETED DATE/TIME: 10/05/2017 10:51 am REASON FOR STUDY: fall, pain COMPARISON: None. NUMBER OF VIEWS: Two views. TECHNIQUE: Two radiographic images were acquired of the left humerus to include elbow and shoulder i n at least one projection. LIMITATIONS: None. FINDINGS: MINERALIZATION: Normal. BONES: Minimally displaced fracture of the surgical neck. Greater and lesser tuberosity intact. SOFT TISSUES: No obvious swelling or foreign body. OTHER: No other significant finding. IMPRESSION: Fracture of the surgical neck. TECHNICAL DOCUMENTATION: JOB ID: [id number] [employer]- All Rights Reserved Reading location - IP/workstation name: [email or web address]
--- NOTE | 2017-10-05 11:13 | RADIOLOGY REPORT (SQ) ---
EXAM DESCRIPTION: ACUTE ABDOMEN SERIES COMPLETED DATE/TIME: 10/05/2017 10:51 am REASON FOR STUDY: abd pain COMPARISON: None. NUMBER OF VIEWS: Three views. TECHNIQUE: Frontal chest, supine abdomen and upright/decubitus abdomen radiographic images acquired. LIMITATIONS: None. FINDINGS: CHEST: Lungs clear of infiltrates. FREE AIR: None. No abnormal gas collections. BOWEL GAS PATTERN: Moderate fecal material throughout nondilated colon. CALCIFICATIONS: No suspicious calcifications. HARDWARE: None in the abdomen. SOFT TISSUES: No gross mass or suggestion of organomegaly. BONES: No acute fracture. No worrisome bone lesions. OTHER: No other significant finding. IMPRESSION: Fecal retention. No obstruction. TECHNICAL DOCUMENTATION: JOB ID: [id number] [employer]- All Rights Reserved Reading location - IP/workstation name: [email or web address]
--- NOTE | 2017-10-05 12:39 | RADIOLOGY REPORT (SQ) ---
EXAM DESCRIPTION: CT HEAD WITHOUT COMPLETED DATE/TIME: 10/05/2017 12:30 pm REASON FOR STUDY: fall; right eye blurry vision COMPARISON: Multiple, most recent 07/10/2017 TECHNIQUE: Axial images acquired through the brain without intravenous contrast. Images reviewed wi th bone, brain and subdural windows. Additional sagittal and coronal reconstructions were generated. Images stored on PACS. All CT scanners at this facility use dose modulation, iterative reconstruction, and/or weight based d osing when appropriate to reduce radiation dose to as low as reasonably achievable (ALARA). [facility]: Dose Right [facility]: CareDose [facility]: Dose Right [facility]: Teradose 4D [facility]: Sofea RADIATION DOSE: CT Rad equipment meets quality standard of care and radiation dose reduction techniq ues were employed. CTDIvol: 53.2 mGy. DLP: 1044 mGy-cm. mGy. LIMITATIONS: None. FINDINGS: VENTRICLES: Prominent. CEREBRUM: Old lacunar infarct right internal capsule. No masses. No hemorrhage. No midline shift. Areas of low density in the white matter most likely due to chronic micro-vascular ischemic change. No evidence for acute infarction. CEREBELLUM: No masses. No hemorrhage. No alteration of density. No evidence for acute infarction. EXTRAAXIAL SPACES: Mild age-related involutional change. No fluid collections. No masses. ORBITS AND GLOBE: No intra- or extraconal masses. Normal contour of globe without masses. CALVARIUM: No fracture. PARANASAL SINUSES: No fluid or mucosal thickening. SOFT TISSUES: No mass or hematoma. OTHER: No other significant finding. IMPRESSION: No acute findings. EVIDENCE OF ACUTE STROKE: NO. TECHNICAL DOCUMENTATION: JOB ID: [id number] Quality ID # [id number]: Final reports with documentation of one or more dose reduction techniques (e.g., Au tomated exposure control, adjustment of the mA and/or kV according to patient size, use of iterative reconstruction technique) 2010 [employer]- All Rights Reserved Reading location - IP/workstation name: [email or web address]
--- NOTE | 2017-10-05 12:49 | RADIOLOGY REPORT (SQ) ---
EXAM DESCRIPTION: CT ABD/PELVIS WITH IV ONLY COMPLETED DATE/TIME: 10/05/2017 12:36 pm REASON FOR STUDY: 19; fall COMPARISON: None. TECHNIQUE: CT scan of the abdomen and pelvis performed using helical scanning technique with dynamic intravenous contrast injection. No oral contrast. Images reviewed with lung, soft tissue, and bone windows. Reconstructed coronal and sagittal MPR images reviewed. Delayed images for evaluation of the urinary system also acquired. All images stored on PACS. All CT scanners at this facility use dose modulation, iterative reconstruction, and/or weight based d osing when appropriate to reduce radiation dose to as low as reasonably achievable (ALARA). [facility]: Dose Right [facility]: CareDose [facility]: Dose Right [facility]: Teradose 4D [facility]: Nanorex CONTRAST TYPE AND DOSE: contrast/concentration: Isovue 350.00 mg/ml; Total Contrast Delivered: 91.0 ml; Total Saline Delivered: 69.0 ml RENAL FUNCTION: GFR > 60. RADIATION DOSE: CT Rad equipment meets quality standard of care and radiation dose reduction techniq ues were employed. CTDIvol: 9.6 - 14.4 mGy. DLP: 1438 mGy-cm.. LIMITATIONS: Positioning. FINDINGS: LOWER CHEST: Small hiatal hernia. LIVER: Normal size. No masses. No dilated ducts. SPLEEN: Normal size. No focal lesions. PANCREAS: No masses. No significant calcifications. No adjacent inflammation or peripancreatic fluid collections. Pancreatic duct not dilated. GALLBLADDER: No identified stones by CT criteria. No inflammatory changes to suggest cholecystitis. ADRENAL GLANDS: No significant masses or asymmetry. RIGHT KIDNEY AND URETER: No solid masses. No significant calcifications. No hydronephrosis or hyd roureter. LEFT KIDNEY AND URETER: No solid masses. No significant calcifications. No hydronephrosis or hydr oureter. AORTA AND VESSELS: No aneurysm. No dissection. Renal arteries, SMA, celiac without stenosis. RETROPERITONEUM: No retroperitoneal adenopathy, hemorrhage or masses. BOWEL AND PERITONEAL CAVITY: No masses or inflammatory changes. No free fluid or peritoneal masses. APPENDIX: Normal. PELVIS: No mass. No free fluid. Normal bladder. ABDOMINAL WALL: Fat containing umbilical hernia. BONES: No significant or acute findings. OTHER: No other significant finding. IMPRESSION: No acute findings. TECHNICAL DOCUMENTATION: JOB ID: [id number] Quality ID # [id number]: Final reports with documentation of one or more dose reduction techniques (e.g., Au tomated exposure control, adjustment of the mA and/or kV according to patient size, use of iterative reconstruction technique) 2010 [employer]- All Rights Reserved Reading location - IP/workstation name: [facility]-[email or web address]
--- NOTE | 2017-10-05 13:10 | EKG REPORT ---
SEVERITY:- ABNORMAL ECG - SINUS RHYTHM RBBB AND LAFB LEFT VENTRICULAR HYPERTROPHY : Confirmed by: Fish Farah MD 05-Oct-2017 13:10:08
[2017-10-05 13:27] LABS: APPEARANCE,URINE SLIGHTLY-CLOUDY; BILIRUBIN,URINE NEGATIVE (NEGATIVE); COLOR,URINE YELLOW; GLUCOSE, URINE NEGATIVE (NEGATIVE); KETONES,URINE NEGATIVE (NEGATIVE); LEUKOCYTE ESTERASE,URINE SMALL (NEGATIVE); NITRITE,URINE POSITIVE (NEGATIVE); PROTEIN,URINE NEGATIVE (NEGATIVE); URINE SPECIFIC GRAVITY 1.013; UROBILINOGEN,URINE NEGATIVE mg/dL (<2.0)
[2017-10-05 13:54] VITALS: BP 147/65
== END 2017-10-05 13:54 | disposition home or self-care (01) ==
LOC: ER 09:20
DX: S42.212A Unspecified displaced fracture of surgical neck of left humerus, initial encounter for closed fracture (principal); H53.8 Other visual disturbances; R10.816 Epigastric abdominal tenderness; R10.815 Periumbilic abdominal tenderness; W01.0XXA Fall on same level from slipping, tripping and stumbling without subsequent striking against object, initial encounter; Z91.81 History of falling; Y92.009 Unspecified place in unspecified non-institutional (private) residence as the place of occurrence of the external cause; E78.00 Pure hypercholesterolemia, unspecified; I10 Essential (primary) hypertension; I69.928 Other speech and language deficits following unspecified cerebrovascular disease; I69.993 Ataxia following unspecified cerebrovascular disease
CPT/HCPCS: 36415; 70450; 74022; 74177; 80053; 80164; 80183; 81001; 85025; 93005; 93010; 99284

== ENCOUNTER 2017-11-04 06:22 | Day surgery (SDC) | payer MEDICAID ==
[~2017-11-04 06:22] MED LIST changes: +KETOROLAC TROMETHAMINE 0.45% 4 DROP/0.4 ML DROPERETTE OD PRN; -PROPOFOL INJ 200 MG/20 ML VIAL IV ONE
[2017-11-04] MEDS: BESIFLOXACIN HCL 0.6% OPH SUSP 5 ML BOTTLE OD PRN ×3 (07:05→07:57)
[2017-11-04] MEDS: TETRACAINE HCL 0.5% OPH SOLN 4 ML OD PRN ×2 (07:05→07:28)
[2017-11-04] MEDS ORDERED: ACETYLCHOLINE CHLORIDE 20 MG/2 ML KIT ONE (07:14)
[2017-11-04] MEDS ORDERED: TOBRAMYCIN SULFATE/DEXAMETH OPH OINTMENT 3.5 GM ONE (07:14)
[2017-11-04] MEDS ORDERED: MIDAZOLAM 2 MG/2 ML INJ ONE (07:21)
[2017-11-04] MEDS ORDERED: PROPOFOL INJ 200 MG/20 ML VIAL IV ONE (07:22)
[2017-11-04] MEDS ORDERED: FENTANYL CITRATE INJ/PF 100 MCG/2 ML AMPUL ONE (07:22)
[2017-11-04] MEDS ORDERED: LIDOCAINE 1%/PHENYLEPHRINE 1.5% 1 ML VIAL ONE (07:30)
[2017-11-04] MEDS ORDERED: EPINEPHRINE INJ/PF 1 MG/1 ML AMPULE ONE (07:30)
[2017-11-04] MEDS ORDERED: LIDOCAINE 1% INJ-PF (10 MG/ML) 30 ML SDV ONE (07:31)
[2017-11-04] MEDS ORDERED: CHONDR SU A NA/HYALUR INTRAOC KIT (SURGICARE) ONE (07:43)
[2017-11-04] MEDS ORDERED: CHONDR SU A NA/HYALUR SOD 0.5 ML DISP.SYRIN ONE (07:43)
--- NOTE | 2017-11-04 11:31 | [facility] OPERATIVE REPORT E ---
[facility] Operative Report NAME: RAMILA JARAMILLO AGE: 62Y DATE OF SURGERY: 11/04/2017 ROOM: PREOPERATIVE DIAGNOSES: 1. Iris prolapse of the right eye. POSTOPERATIVE DIAGNOSES: 1. Iris prolapse of the right eye. PROCEDURE: Wound revision with redepositing of the iris. SURGEON: BRODY LUX M.D. ANESTHESIA: Topical. BLOOD LOSS: Less than 2 mL. COMPLICATIONS: None. DESCRIPTION OF OPERATIVE REPORT: After obtaining appropriate informed consent from the patient's power of assistant prosecuting attorney, the patient was brought back to the operating room where the right eye was prepped and draped in sterile fashion with Betadine. Following this, a paracentesis was made nasally. Miochol was inserted into the eye to shrink the iris. Following this, lidocaine was inserted into the eye 1% preservative free. Viscoelastic was then instilled into the eye. The iris sweep was used through the paracentesis to insert the iris back into the eye. The iris did stay in position at this point. There was no necrotic iris visualized, but there were some transillumination defects subincisionally. Following this, a 10-0 nylon suture was placed in the incision and the knot was rotated and found to be watertight. A BSS syringe was used to irrigate the eye to remove as much of the viscoelastic as possible and the wound was tested and found to be sealed tightly with the iris back in its appropriate plane. Besivance was instilled into the eye and then TobraDex ointment with a pressure patch. The patient was returned to the postoperative recovery in stable condition. DICTATING PHYSICIAN: BRODY LUX M.D. [id number] PHY#: [id number] ID: [id number] JOB#: [id number] ACCT: [id number] cc:BRODY LUX M.D. > MTDBlair
--- NOTE | 2017-11-04 11:41 | [facility] DISCHARGE SUMMARY E ---
[facility] Discharge Summary NAME: RAMILA JARAMILLO AGE: 62Y ADMITTED: 11/04/2017 DISCHARGED: 11/04/2017 HISTORY: This is a 62-year-old male who underwent wound revision due to iris prolapsing through the incision of the right eye. DIAGNOSIS: Iris prolapse of the right eye. HOSPITAL COURSE: The patient was seen postoperatively 5 days after surgery and the incision was well sealed with no iris prolapse at that time. The patient did state that since then he has rubbed his eye pretty vigorously multiple times. The patient is a poorly compliant patient and is unreliable. DISCHARGE INSTRUCTIONS: The patient should be on a regular diet. No bending at his waist. He should keep the pressure patch on until tomorrow and then it will be removed and I will see him for a one day postop visit. I prescribed Diamox 250 mg p.o. t.i.d. for him to take as well and his caregivers were instructed to try to help prevent him from rubbing or touching his eye. It was discussed that we needed to do this procedure. He is at high risk for endophthalmitis due to the iris and we will watch him carefully postoperatively. I will see him for one day postoperative. The patient tolerated the procedure well. DICTATING PHYSICIAN: BRODY LUX M.D. [id number] PHY#: [id number] ID: [id number] JOB#: [id number] ACCT: [id number] cc:BRODY LUX M.D. > MTDD
== END 2017-11-04 08:44 | disposition home or self-care (01) ==
LOC: SC 06:22
PROVIDERS: ATTEND Internal Medicine
DX: S05.21XA Ocular laceration and rupture with prolapse or loss of intraocular tissue, right eye, initial encounter (principal); X58.XXXA Exposure to other specified factors, initial encounter; Z96.1 Presence of intraocular lens; H40.211 Acute angle-closure glaucoma, right eye; H57.03 Miosis; M19.90 Unspecified osteoarthritis, unspecified site; D64.9 Anemia, unspecified; K21.9 Gastro-esophageal reflux disease without esophagitis; F17.210 Nicotine dependence, cigarettes, uncomplicated; E05.90 Thyrotoxicosis, unspecified without thyrotoxic crisis or storm; F31.9 Bipolar disorder, unspecified; F20.89 Other schizophrenia; Z79.899 Other long term (current) drug therapy; Z86.73 Personal history of transient ischemic attack (TIA), and cerebral infarction without residual deficits; Z79.1 Long term (current) use of non-steroidal anti-inflammatories (NSAID)
CPT/HCPCS: 66682; J3490 ×6; J2250; J0171; J3010; 140; J2370; J2704

== ENCOUNTER 2017-12-24 08:25 | Day surgery (SDC) | payer MEDICAID ==
[~2017-12-24 08:25] MED LIST changes: -KETOROLAC TROMETHAMINE 0.45% 4 DROP/0.4 ML DROPERETTE OD PRN; +KETOROLAC TROMETHAMINE 0.45% 4 DROP/0.4 ML DROPERETTE OS PRN
[2017-12-24] MEDS: CYCLOPENTOLATE 0.2%/PHENYLEPHRINE 1% OPH SOLN 2 ML OS PRN ×3 (08:56→09:23)
[2017-12-24] MEDS: TROPICAMIDE 1% OPH SOLN 3 ML OS PRN ×3 (08:56→09:23)
[2017-12-24] MEDS: BESIFLOXACIN HCL 0.6% OPH SUSP 5 ML BOTTLE OS PRN ×6 (08:57→10:10)
[2017-12-24] MEDS: TETRACAINE HCL 0.5% OPH SOLN 4 ML OS PRN ×4 (08:59→09:31)
[2017-12-24] MEDS ORDERED: MIDAZOLAM 2 MG/2 ML INJ ONE (09:14)
[2017-12-24] MEDS: CHONDR SU A NA/HYALUR INTRAOC KIT (SURGICARE) ONE ×2 (09:45)
[2017-12-24] MEDS: EPINEPHRINE INJ/PF 1 MG/1 ML AMPULE ONE ×2 (09:45)
[2017-12-24] MEDS: LIDOCAINE 1%/PHENYLEPHRINE 1.5% 1 ML VIAL ONE ×2 (09:45)
[2017-12-24] MEDS ORDERED: TOBRAMYCIN SULFATE/DEXAMETH OPH OINTMENT 3.5 GM ONE (10:09)
[2017-12-24] MEDS ORDERED: CHONDR SU A NA/HYALUR SOD 0.5 ML DISP.SYRIN ONE (10:15)
--- NOTE | 2017-12-24 18:52 | [facility] OPERATIVE REPORT E ---
[facility] Operative Report NAME: RAMILA JARAMILLO AGE: 62Y DATE OF SURGERY: 12/24/2017 ROOM: PREOPERATIVE DIAGNOSIS: CATARACT, LEFT EYE. POSTOPERATIVE DIAGNOSIS: CATARACT, LEFT EYE. OPERATION: Cataract extraction with insertion of an IOL of the left eye. SURGEON: BRODY LUX M.D. ANESTHESIA: Topical. PROCEDURE: After obtaining appropriate consent, the patient's left eye was prepped and draped in sterile fashion as well as the surgeon in a sterile manner and cataract surgery was started. First a paracentesis blade was used to make a side-port incision. Viscoelastic was used to inflate the anterior chamber. Next a 2.4 mm incision was made with a 2.4 mm blade, clear corneal temporally. A continuous capsulorrhexis was made using a cystotome and Utrata forceps. Following this hydrodissection was carried out to make the lens fully loose and mobile and it was rotated 90 degrees. Following this, a wyqxat-dps-wcimuub technique was used to phacoemulsify the lens with a CDE of 21.58. The remaining cortex was removed with irrigation/aspiration. Provisc was instilled into the capsular bag to inflate the bag. A SN60WF, 28.5 diopter lens was placed. The remaining viscoelastic material was removed with irrigation/aspiration. Following this, the incision was found to be watertight. Besivance was instilled into the eye and a protective shield was placed over the eye. The patient returned to the postoperative recovery in stable condition. DICTATING PHYSICIAN: BRODY LUX M.D. [id number] PHY#: [id number] ID: [id number] JOB#: [id number] ACCT: [id number] cc:BRODY LUX M.D. >
--- NOTE | 2017-12-24 18:53 | [facility] DISCHARGE SUMMARY E ---
[facility] Discharge Summary NAME: RAMILA JARAMILLO AGE: 62Y ADMITTED: 12/24/2017 DISCHARGED: This 62-year-old male underwent cataract extraction of the left eye. DIAGNOSIS: Cataract left eye. He underwent surgery because he was having difficulty seeing small print. He is to be on a regular diet. No bending at the waist, no heavy lifting. He should use his Durezol, ketorolac, and Vigamox at 3:00 p.m. and 8:00 p.m. as well as Combigan at 3:00 p.m. and 8:00 p.m., and sleep with a rigid shield. I will see him for his 1-day postoperative tomorrow. DICTATING PHYSICIAN: BRODY LUX M.D. [id number] PHY#: [id number] ID: [id number] JOB#: [id number] ACCT: [id number] cc:BRODY LUX M.D. >
== END 2017-12-24 10:50 | disposition home or self-care (01) ==
LOC: SC 08:25
PROVIDERS: ATTEND Internal Medicine
DX: H25.812 Combined forms of age-related cataract, left eye (principal); F17.210 Nicotine dependence, cigarettes, uncomplicated; H40.211 Acute angle-closure glaucoma, right eye; E05.90 Thyrotoxicosis, unspecified without thyrotoxic crisis or storm; K21.9 Gastro-esophageal reflux disease without esophagitis; F31.9 Bipolar disorder, unspecified; F20.9 Schizophrenia, unspecified; E11.9 Type 2 diabetes mellitus without complications; Z86.73 Personal history of transient ischemic attack (TIA), and cerebral infarction without residual deficits; Z79.899 Other long term (current) drug therapy
CPT/HCPCS: 66984; V2632; J2250; J3490 ×4; J0171; J2370; 142

== ENCOUNTER → 2019-04-08 | Outpatient (CLI) | payer MEDICARE, MEDICAID ==
--- NOTE | 2019-04-08 08:37 | RADIOLOGY REPORT (SQ) ---
EXAM DESCRIPTION: U/S ABD AORTIC SCREENING COMPLETED DATE/TIME: 04/08/2019 8:25 am REASON FOR STUDY: Z13.6 ENCOUNTER FOR SCREENING FOR CARDIOVASCULAR DISORDERS Z12.2 ENCNTR SCREEN FO R MALIGNANT NEOPLASM OF RESPIRATORY OR Z13.6 ENCOUNTER FOR SCREENING FOR CARDIOVASCULAR DISORDERS COMPARISON: None. TECHNIQUE: Static and dynamic grayscale images acquired of the aorta and stored on PACs. Selected co colt Doppler and spectral images recorded. LIMITATIONS: None. FINDINGS: AORTIC CALIBER MAXIMAL PROXIMAL: 2.5 cm. MID: 2.1 cm. DISTAL: 1.5 cm. OTHER: Scattered atherosclerosis. ILIAC DIAMETER RIGHT: 1.3 cm. LEFT: 1.1 cm. OTHER: No other significant finding. IMPRESSION: No evidence of abdominal aortic aneurysm. COMMENT: Aortic aneurysm imaging followup: Negative, no followup necessary. *Based upon the Society for Vascular Surgery Guidelines: J Vasc Surg. 2009 Oct;50(4 Suppl):S2-49 *For aortas of maximum diameter of 2.6-2.9 cm meeting the criteria for AAA (?1.5 x proximal normal se gment) TECHNICAL DOCUMENTATION: JOB ID: [id number] 2010 [employer]- All Rights Reserved Reading location - IP/workstation name: [email or web address]
== END ==
LOC: RAD 07:56
PROVIDERS: ATTEND Nurse Practitioner Family
DX: Z13.6 Encounter for screening for cardiovascular disorders (principal); I70.0 Atherosclerosis of aorta; Z72.0 Tobacco use
CPT/HCPCS: 76706

== ENCOUNTER → 2019-04-15 | Outpatient (CLI) | payer MEDICARE, MEDICAID ==
--- NOTE | 2019-04-15 12:12 | RADIOLOGY REPORT (SQ) ---
EXAM DESCRIPTION: CT LUNG CANCER SCREENING COMPLETED DATE/TIME: 04/15/2019 9:52 am REASON FOR STUDY: F17.210 NICOTINE DEPENDENCE, CIGARETTES, UNCOMPLICATED Z12.2 ENCNTR SCREEN FOR MA LIGNANT NEOPLASM OF RESPIRATORY OR F17.210 NICOTINE DEPENDENCE, CIGARETTES, UNCOMPLICATED Has the patient had a Chest CT scan within the past year? N Was the patient offered tobacco cessation counseling? Y Was the patient engaged in shared decision making for this test? Y Does the patient have signs or symptoms of Lung Cancer? N Is the patient a smoker? Y How many pack years? 50 How many years since quitting smoking? 0 Patients age: 64 COMPARISON: None. TECHNIQUE: Low Dose CT scan performed of the chest without intravenous contrast for purposes of scre ening for lung cancer. Images reviewed with lung, soft tissue and bone windows. Reconstructed coron al and sagittal MPR images reviewed. All images stored on PACS. All CT scanners at this facility use dose modulation, iterative reconstruction, and/or weight based d osing when appropriate to reduce radiation dose to as low as reasonably achievable (ALARA). [facility]: Dose Right [facility]: CareDose [facility]: Dose Right [facility]: Teradose 4D [facility]: [employer] RADIATION DOSE: CT Rad equipment meets quality standard of care and radiation dose reduction techniq ues were employed. CTDIvol: NaN mGy. DLP: 0 mGy-cm. mGy. . LIMITATIONS: Mild motion. Interpretation is performed without computer-aided detection. FINDINGS: LUNGS AND PLEURA: No masses or nodules. No pleural effusions or calcifications. No pne umothorax. HILAR AND MEDIASTINAL STRUCTURES: No identified masses. No abnormal nodes. HEART AND VASCULAR STRUCTURES: Cardiac enlargement without pericardial effusion. No gross aortic ane urysm. No cardiac devices. CORONARY ARTERY CALCIFICATIONS: Moderate coronary calcification. UPPER ABDOMEN, THYROID, BONES, OTHER SOFT TISSUES: No significant findings. IMPRESSION: NO SIGNIFICANT FINDING IN THE LUNGS ON NON-CONTRASTED CHEST CT. NO OTHER CLINICALLY SIGNIFICANT/POTENTIALLY CLINICALLY SIGNIFICANT FINDINGS LUNGRADS: LUNGRADS: 1 NEGATIVE. NO NODULES, OR DEFINITELY BENIGN NODULES MODIFIER: NONE RECOMMENDATION: Continue annual screening with LDCT in 12 months. COMMENT: CRITERIA: No lung nodules. Nodules with specific calcifications: Complete, central, popcorn, concentric rings and fat containin g nodules. TECHNICAL DOCUMENTATION: JOB ID: [id number] Quality ID # 436: Final reports with documentation of one or more dose reduction techniques (e.g., Au tomated exposure control, adjustment of the mA and/or kV according to patient size, use of iterative reconstruction technique) 2010 [facility], [place] Radiology Reading location - IP/workstation name: [email or web address]
== END ==
LOC: RAD 09:33
PROVIDERS: ATTEND Nurse Practitioner Family
DX: Z12.2 Encounter for screening for malignant neoplasm of respiratory organs (principal); F17.210 Nicotine dependence, cigarettes, uncomplicated; I25.10 Atherosclerotic heart disease of native coronary artery without angina pectoris
CPT/HCPCS: G0297

== ENCOUNTER 2019-10-12 12:12 | Inpatient (IN) | payer MEDICARE, MEDICAID ==
[2019-10-12] MEDS ORDERED: NALOXONE HCL INJ/PF 0.4 MG/1 ML SDV ONE (12:39)
[2019-10-12] MEDS ORDERED: NALOXONE HCL INJ/PF 0.4 MG/1 ML SDV IV ONE (12:43)
[2019-10-12] MEDS ORDERED: NORMAL SALINE 1000 ML 2,500 ML IV ONE (12:45)
[2019-10-12 13:22] LABS: ABSOLUTE LYMPHOCYTES (AUTO) 1.3 10^3/uL (0.5-4.7); ABSOLUTE MONOCYTES (AUTO) 1.2 10^3/uL (0.1-1.4); ABSOLUTE NEUT (AUTO) 12.3 10^3/uL (1.7-8.2); BASOPHILS % (AUTO) 0.3 % (0-2); EOSINOPHILS % (AUTO) 0.1 % (0-6); HEMATOCRIT 29.3 % (37.9-51.0); HEMOGLOBIN 10.2 g/dL (13.5-17.0); LYMPHOCYTES % (AUTO) 8.7 % (13-45); MEAN CORPUSCULAR HEMOGLOBIN 30.4 pg (27.0-33.4); MEAN CORPUSCULAR HGB CONC 34.9 g/dL (32.0-36.0); MEAN CORPUSCULAR VOLUME 87 fl (80-97); MONOCYTES % (AUTO) 8.1 % (3-13); PLATELET COUNT 296 10^3/uL (150-450); RED BLOOD COUNT 3.37 10^6/uL (4.35-5.55); RED CELL DISTRIBUTION WIDTH 14.6 % (11.5-14.0); SEGMENTED NEUTROPHILS % (AUTO) 82.8 % (42-78); TOTAL CELLS COUNTED % (AUTO) 100 %; WHITE BLOOD COUNT 14.8 10^3/uL (4.0-10.5)
[2019-10-12 13:23] LABS: VENOUS BLOOD BASE EXCESS -1.1 mmol/L; VENOUS BLOOD HCO3 24.1 mmol/L (20-32); VENOUS BLOOD PCO2 41.9 mmHg (35-63); VENOUS BLOOD PH 7.38 (7.30-7.42)
--- NOTE | 2019-10-12 13:27 | RADIOLOGY REPORT (SQ) ---
EXAM DESCRIPTION: CHEST SINGLE VIEW IMAGES COMPLETED DATE/TIME: 10/12/2019 1:18 pm REASON FOR STUDY: cough COMPARISON: AP view of the chest from 09/21/2019. EXAM PARAMETERS: NUMBER OF VIEWS: One view. TECHNIQUE: An AP view of the chest was obtained. RADIATION DOSE: NA LIMITATIONS: None. FINDINGS: LUNGS AND PLEURA: Chronic opacities in the inferior aspect of the right hemithorax. There is no acute consolidation, sizeable pleural effusion or pneumothorax. MEDIASTINUM AND HILAR STRUCTURES: No mediastinal or hilar contour abnormality. HEART AND VASCULAR STRUCTURES: Stable enlarged cardiac silhouette. BONES: No acute findings. HARDWARE: None in the chest. OTHER: No other finding. IMPRESSION: Cardiomegaly without a superimposed acute cardiopulmonary process. TECHNICAL DOCUMENTATION: JOB ID: [id number] 2010 [employer]- All Rights Reserved Reading location - IP/workstation name: [email or web address]
[2019-10-12 13:28] LABS: INTERNATIONAL RATION (INR) 1.06
[2019-10-12 13:44] LABS: ALBUMIN 3.8 g/dL (3.5-5.0); ALKALINE PHOSPHATASE 52 U/L (38-126); ANION GAP 8 (5-19); ASPARTATE AMINO TRANSFERASE 19 U/L (17-59); BILIRUBIN,DIRECT 0.3 mg/dL (0.0-0.4); BILIRUBIN,TOTAL 0.4 mg/dL (0.2-1.3); BLOOD UREA NITROGEN 12 mg/dL (7-20); CALCIUM 9.2 mg/dL (8.4-10.2); CARBON DIOXIDE 26 mmol/L (22-30); CHLORIDE 106 mmol/L (98-107); GLUCOSE 116 mg/dL (75-110); POTASSIUM 4.5 mmol/L (3.6-5.0); TOTAL PROTEIN 6.4 g/dL (6.3-8.2)
--- NOTE | 2019-10-12 13:48 | RADIOLOGY REPORT (SQ) ---
EXAM DESCRIPTION: CT HEAD WITHOUT IMAGES COMPLETED DATE/TIME: 10/12/2019 12:23 pm REASON FOR STUDY: ams COMPARISON: CT head 09/21/2019. TECHNIQUE: Axial images acquired through the brain without intravenous contrast. Images reviewed wi th bone, brain and subdural windows. Additional sagittal and coronal reconstructions were generated. Images stored on PACS. All CT scanners at this facility use dose modulation, iterative reconstruction, and/or weight based d osing when appropriate to reduce radiation dose to as low as reasonably achievable (ALARA). [facility]: Dose Right [facility]: CareDose [facility]: Dose Right [facility]: Teradose 4D [facility]: Smart Sphere 3d RADIATION DOSE: CT Rad equipment meets quality standard of care and radiation dose reduction techniq ues were employed. CTDIvol: 53.2 mGy. DLP: 1070 mGy-cm. mGy. LIMITATIONS: None. FINDINGS: VENTRICLES: Normal size and contour. CEREBRUM: No masses. No hemorrhage. No midline shift. No evidence for acute infarction. Chronic la cunar infarct right basal ganglia unchanged. Mild patchy periventricular and deep white matter hypod ense attenuation consistent with mild chronic small vessel ischemic change. There is intracranial at herosclerosis. CEREBELLUM: No masses. No hemorrhage. No alteration of density. No evidence for acute infarction. EXTRAAXIAL SPACES: No fluid collections. No masses. ORBITS AND GLOBE: No intra- or extraconal masses. Normal contour of globe without masses. CALVARIUM: No fracture. PARANASAL SINUSES: No fluid or mucosal thickening. SOFT TISSUES: No mass or hematoma. OTHER: No other significant finding. IMPRESSION: No significant interval change. No acute intracranial hemorrhage, mass, or evidence of acute territorial infarct. Mild chronic small vessel ischemic change and chronic infarct in the righ t basal ganglia are stable. EVIDENCE OF ACUTE STROKE: NO. COMMENT: Quality ID # 436: Final reports with documentation of one or more dose reduction techniques (e.g., Automated exposure control, adjustment of the mA and/or kV according to patient size, use of iterative reconstruction technique) TECHNICAL DOCUMENTATION: JOB ID: [id number] [employer]- All Rights Reserved Reading location - IP/workstation name: [email or web address]
[2019-10-12 13:49] LABS: ALCOHOL < 10 mg/dL (NONE DETECTED)
[2019-10-12 14:10] LABS: APPEARANCE,URINE CLOUDY; BILIRUBIN,URINE NEGATIVE (NEGATIVE); GLUCOSE, URINE NEGATIVE (NEGATIVE); KETONES,URINE NEGATIVE (NEGATIVE); PROTEIN,URINE >=500 mg/dL (NEGATIVE); URINE SPECIFIC GRAVITY 1.014; UROBILINOGEN,URINE NEGATIVE mg/dL (<2.0)
[2019-10-12 14:16] LABS: COLOR,URINE DARK YELLOW
[2019-10-12 14:17] LABS: BACTERIA,URINE 1+ /HPF; RBC,URINE >100 /HPF
[2019-10-12] MEDS ORDERED: CEFTRIAXONE 1 GM/D5W RTU 1 GM/50 ML RTUPB IV ONE (14:28)
[2019-10-12 14:40] LABS: URINE AMPHETAMINES SCREEN NEGATIVE; URINE BARBITURATES SCREEN NEGATIVE; URINE BENZODIAZEPINES SCREEN NEGATIVE; URINE COCAINE SCREEN NEGATIVE; URINE MARIJUANA (THC) SCREEN NEGATIVE; URINE METHADONE SCREEN NEGATIVE; URINE PHENCYCLIDINE SCREEN NEGATIVE
--- NOTE | 2019-10-12 14:56 | ER Document Report ---
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 IN LAST 30 DAYS: No - HPI Notes: Patient was brought to the hospital by his power of trial attorney. She apparently b rought the patient to triage and dropped the patient off stating that she was told by the patient's ophthalmic medical technician to bring him to the hospital. Patient is initially unresponsive and in addition has a history of dementia and schizophrenia so cannot contribute significantly to history. A phone call to the power of trial attorney revealed that this morning patient was found to have blood in his urine. Patient has recently been having trouble with urinary retention and has had a Chaves for the last several weeks. They noticed this morning that there was blood in it. They also took his vital signs and noticed that his blood pressure was low. In addition patient was weak and according to the power of trial attorney was falling to the left. There is been no known history of fever. No vomiting. There is been no significant falls or trauma. Patient's weakness appears to be the main symptom. It is been constant apparently since last evening. It is worse with exertion and better with rest. It does radiate throughout his body. It is been moderate to severe. 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 Denies: Hx Seizures Endocrine Medical History: Reports: Hx Hyperthyroidism, Hx Hypothyroidism Renal/ Medical History: Denies: Hx Peritoneal Dialysis GI Medical History: Denies: Hx Hepatitis, Hx Hiatal Hernia, Hx Ulcer Musculoskeletal Medical History: Reports Hx Arthritis - c/o leg and back pain , Reports Hx Muscle Spasm, Reports Hx Musculoskeletal Deformity, Reports Hx Musculoskeletal Trauma Psychiatric Medical History: Reports: Hx Anxiety, Hx Bipolar Disorder, Hx Depression, Hx Schizoaffective Disorder, Hx Schizophrenia - PARANOID Infectious Medical History: Denies: Hx Hepatitis Past Surgical History: Reports: Hx Orthopedic Surgery. Denies: Hx Open Heart Surgery, Hx Pacemaker - Immunizations Immunizations up to date: Yes Hx Diphtheria, Pertussis, Tetanus Vaccination: No Review of Systems - Review of Systems -: Yes ROS unobtainable due to patient's medical condition - Cannot obtain review of symptoms due to patient's altered mental status Physical Exam - Vital signs Vitals: Temp 99.2 F 10/12/19 12:13 Interpretation: Hypotensive - General General appearance: Lethargic In distress: None - HEENT Head: Normocephalic, Atraumatic Eyes: Normal Pupils: PERRL - Respiratory Respiratory status: No respiratory distress Chest status: Nontender Breath sounds: Normal Chest palpation: Normal - Cardiovascular Rhythm: Regular Heart sounds: Normal auscultation Murmur: No - Abdominal Inspection: Normal Distension: No distension Bowel sounds: Normal Tenderness: Nontender Organomegaly: No organomegaly - Back Back: Normal, Nontender - Extremities General upper extremity: Normal inspection, Nontender, Normal color, Normal temperature General lower extremity: Normal inspection, Nontender, Normal color, Normal temperature. No: Melani's sign - Neurological Cognition: Confused Orientation: Disoriented to place, Disoriented to time [place] Coma Scale Eye Opening: To Pain [place] Coma Scale Verbal: Confused [place] Coma Scale Motor: Obeys Commands [place] Coma Scale Total: 12 Speech: Normal - Psychological Associated symptoms: Confused, Flat affect - Skin Skin Temperature: Warm Skin Moisture: Dry Skin Color: Normal Course - Re-evaluation Re-evalutation: 10/12/19 14:52 Patient was brought immediately back by nursing staff and placed in the room. When I walked in - patient was responsive to sternal rub and would wake up and move my hand away and swear at me. His initial blood pressure was noticed to be 84 systolic. He was not tachycardic. He was not hypoxic. Blood glucose was checked and it was normal. Patient was given Narcan with no significant change. It was noticed the patient had red-orange liquid in his Chaves. Patient had IV lines placed and immediately was given 2 L of fluid. After approximately 30 to 45 minutes he had a significant improvement of his mental status where he was awake and extremely conversant. He was asked me to remove his Chaves and talking to me about other subjects however, patient would often not make sense but I imagine is somewhat baseline due to his history of dementia. Patient's blood pressure is also now normalized and has relatively stable vital signs. His Chaves was replaced. Imaging shows no evidence of acute pathology. Laboratories are remarkable for a urinary tract infection and an elevated white blood cell count. Although patient has a chronic indwelling Chaves since he has an elevated white blood cell count, hypotension, and altered mental status we are going to treat with antibiotics and fluids. Lactate is been normal. Electrolytes are relatively stable. He is not anemic. The power of trial attorney has been notified and updated. - Vital Signs Vital signs: Temp Pulse Resp BP Pulse Ox 98.2 F 64 17 125/41 L 97 10/12/19 12:24 10/12/19 12:21 10/12/19 14:16 10/12/19 14:16 10/12/19 14:16 - Laboratory Result Diagrams: 10/12/19 12:39 10/12/19 12:39 Laboratory results interpreted by me: 10/12/19 10/12/19 10/12/19 12:38 12:39 12:39 WBC 14.8 H RBC 3.37 L Hgb 10.2 L Hct 29.3 L RDW 14.6 H Lymph % (Auto) 8.7 L Absolute Neuts (auto) 12.3 H Seg Neutrophils % 82.8 H Creatinine 1.37 H Est GFR (MDRD) Non-Af 52 L Glucose 116 H POC Glucose 121 H Urine Protein Urine Blood Leukocyte Esterase Rfl Valproic Acid < 10.0 L 10/12/19 13:48 WBC RBC Hgb Hct RDW Lymph % (Auto) Absolute Neuts (auto) Seg Neutrophils % Creatinine Est GFR (MDRD) Non-Af Glucose POC Glucose Urine Protein >=500 H Urine Blood LARGE H Leukocyte Esterase Rfl LARGE H Valproic Acid - Diagnostic Test Radiology reviewed: Image reviewed, Reports reviewed Discharge - Discharge Clinical Impression: Altered mental status Qualifiers: Altered mental status type: transient alteration of awareness Qualified Code(s): R40.4 - Transient alteration of awareness Leukocytosis Qualifiers: Leukocytosis type: bandemia Qualified Code(s): D72.825 - Bandemia Urinary tract infection Qualifiers: Urinary tract infection type: acute cystitis Hematuria presence: with hematuria Qualified Code(s): N30.01 - Acute cystitis with hematuria Hypotension Qualifiers: Hypotension type: other hypotension type Qualified Code(s): I95.89 - Other hypotension Condition: Serious Disposition: ADMITTED INPATIENT [facility]: Telemetry Referrals: DAVID BUTTERFIELD NP [Primary Care Provider] - Follow up as needed
--- NOTE | 2019-10-12 15:17 | EKG REPORT ---
SEVERITY:- ABNORMAL ECG - SINUS RHYTHM FIRST DEGREE AV BLOCK PROBABLE LEFT ATRIAL ABNORMALITY RIGHT BUNDLE BRANCH BLOCK LEFT VENTRICULAR HYPERTROPHY ANTERIOR Q WAVES, POSSIBLY DUE TO LVH : Confirmed by: Fish Farah MD 12-Oct-2019 15:17:06
[2019-10-12] MEDS ORDERED: GLUCAGON,HUMAN RECOMB 1 MG INJ SUBCUT PRN (17:59)
[2019-10-12] MEDS ORDERED: DEXTROSE 40% GEL 15 GM TUBE PO PRN ×2 (17:59)
[2019-10-12] MEDS ORDERED: ONDANSETRON HCL INJ/PF 4 MG/2 ML SDV IV PRN (17:59)
[2019-10-12] MEDS ORDERED: DEXTROSE 50%-WATER 25 GM/50 ML DISP.SYRIN IV PRN ×2 (17:59)
[2019-10-12] MEDS: DOCUSATE SODIUM 100 MG/10 ML UDC PO SCH (18:57)
--- NOTE | 2019-10-12 20:59 | PDOC H&P ---
History of Present Illness Admission Date/PCP: 10/12/19 15:47 DAVID BUTTERFIELD NP Patient complains of: Altered mental status History of Present Illness: RAMILA JARAMILLO is a 64 year old male, past medical history of dementia, schizophrenia, who was admitted from the ED due to altered mental status. Most of the history obtained from his healthcare power of deputy commonwealth's attorney Colten Bernardo. According to her patient started to get more confused 1 day prior to admission, said that he would pull try to pull out his catheter or spill his urine all over the floor which is not consistent with his baseline mental status. Home health care nurse noted low-grade fever, and they were told to send the patient to the emergency room. In the emergency room, blood pressure noted to be low at systolic of 84. Chaves catheter draining red red-orange liquid. Patient was given IV bolus, started on ceftriaxone. Urinalysis finding consistent with UTI. Lactate was normal. Was admitted for further antibiotic treatment. Chaves catheter replaced in the ED Of note patient was last admitted at [facility] September 20September 14m for GI bleed, also noted with low sodium levels. During prior admission he was treated for UTI with urinary retention. He was discharged with a Chaves. He was seen at his regular urologist clinic on September 27 when they removed his catheter, however he was unable to void hence it was put back the very next day. Past Medical History Cardiac Medical History: Reports: Hyperlipidema, Hypertension Denies: Coronary Artery Disease, Myocardial Infarction Pulmonary Medical History: Reports: Pneumonia Denies: Asthma, Bronchitis, Chronic Obstructive Pulmonary Disease (COPD) Neurological Medical History: Denies: Seizures Endocrine Medical History: Reports: Hypothyroidism Renal/ Medical History: Reports: Other - BPH GI Medical History: Denies: Hepatitis, Hiatal Hernia Musculoskeltal Medical History: Reports: Arthritis - c/o leg and back pain Psychiatric Medical History: Reports: Bipolar Disorder, Depression, Schizoaffective Disorder, Other - Dementia Hematology: Reports: Anemia - TAKES IRON Denies: Sickle Cell Disease Past Surgical History Past Surgical History: Reports: Orthopedic Surgery Denies: Pacemaker Social History Information Source: POA - Power of Occupational Therapy Asst Lives with: Other - Is with POA Smoking Status: Former Smoker Frequency of Alcohol Use: None Hx Recreational Drug Use: No Drugs: None Hx Prescription Drug Abuse: No Family History Family History: Reviewed & Not Pertinent, Other - Unknown Parental Family History Reviewed: No - Patient has altered mental status Children Family History Reviewed: NA Sibling(s) Family History Reviewed.: NA Medication/Allergy Home Medications: Pravastatin Sodium 10 mg PO QHS 04/25/16 Levothyroxine Sodium [Synthroid 0.075 mg Tablet] 0.075 mg PO Q6AM 09/26/16 Ibuprofen [Motrin 800 mg Tablet] 800 mg PO TID 06/27/17 Benztropine Mesylate 1 mg PO DAILY 10/14/17 Finasteride 5 mg PO QHS 10/14/17 Olanzapine 15 mg PO BID 10/14/17 Oxcarbazepine [Trileptal] 600 mg PO BID 10/14/17 Tamsulosin HCl [Flomax 0.4 mg Cap.sr] 0.4 mg PO DAILY 12/17/17 Doxepin HCl [Sinequan 25 mg Capsule] 25 mg PO DAILY 09/21/19 Haloperidol [Haldol 5 mg Tablet] 5 mg PO BID 09/21/19 Potassium Chloride [Klor-Con M20] 20 meq PO DAILY 09/21/19 Amlodipine Besylate [Norvasc 5 mg Tablet] 5 mg PO Q12 #60 tablet 09/23/19 Calcium Carbonate/Vitamin D3 [Calcium 600-Vit D3 400 Tablet] 1 each PO DAILY 10/12/19 Eszopiclone 3 mg PO QHS 10/12/19 Ferrous Sulfate [Feosol 325 mg Tablet] 325 mg PO DAILY 10/12/19 Gabapentin [Neurontin 300 mg Capsule] 300 mg PO Q8 10/12/19 Lisinopril [Prinivil] 20 mg PO DAILY 10/12/19 Allergies/Adverse Reactions: No Known Allergies Allergy (Verified 09/21/19 02:23) Review of Systems ROS unobtainable: Due to mental status Physical Exam Vital Signs: Temp Pulse Resp BP Pulse Ox 98.2 F 64 20 111/40 L 99 10/12/19 12:24 10/12/19 12:21 10/12/19 16:16 10/12/19 16:16 10/12/19 16:16 Intake & Output 10/11/19 10/12/19 10/13/19 06:59 06:59 06:59 Intake Total 2550 Balance 2550 Weight 83.3 kg General appearance: PRESENT: no acute distress, hard of hearing, other - Unable to respond appropriately to questions Head exam: PRESENT: atraumatic, normocephalic Eye exam: PRESENT: EOMI, PERRLA Mouth exam: PRESENT: moist Neck exam: PRESENT: full ROM. ABSENT: JVD, meningismus Respiratory exam: PRESENT: clear to auscultation kenneth, symmetrical, unlabored. ABSENT: crackles, wheezes Cardiovascular exam: PRESENT: RRR, +S1, +S2 Pulses: PRESENT: +2 pedal pulses bilateral GI/Abdominal exam: PRESENT: normal bowel sounds, soft. ABSENT: guarding, tende rness Gentrourinary exam: PRESENT: indwelling catheter Extremities exam: PRESENT: full ROM Musculoskeletal exam: PRESENT: full ROM Neurological exam: PRESENT: altered Focused psych exam: ABSENT: psychomotor agitation Skin exam: PRESENT: abrasion - knee, other. ABSENT: rash, skin tears Results Laboratory Results: 10/12/19 12:39 10/12/19 12:39 10/12/19 10/12/19 10/12/19 12:39 12:39 12:39 WBC 14.8 H RBC 3.37 L Hgb 10.2 L Hct 29.3 L MCV 87 MCH 30.4 MCHC 34.9 RDW 14.6 H Plt Count 296 Seg Neutrophils % 82.8 H VBG pH 7.38 VBG pCO2 41.9 VBG HCO3 24.1 VBG Base Excess -1.1 Sodium 140.2 Potassium 4.5 Chloride 106 Carbon Dioxide 26 Anion Gap 8 BUN 12 Creatinine 1.37 H Est GFR ( Amer) > 60 Glucose 116 H Lactic Acid Calcium 9.2 Total Bilirubin 0.4 AST 19 Alkaline Phosphatase 52 Total Protein 6.4 Albumin 3.8 Urine Color Urine Appearance Urine pH Ur Specific [place] Urine Protein Urine Glucose (UA) Urine Ketones Urine Blood Ur Squamous Epith Cells 10/12/19 10/12/19 10/12/19 12:39 13:48 16:05 WBC RBC Hgb Hct MCV MCH MCHC RDW Plt Count Seg Neutrophils % VBG pH VBG pCO2 VBG HCO3 VBG Base Excess Sodium Potassium Chloride Carbon Dioxide Anion Gap BUN Creatinine Est GFR ( Amer) Glucose Lactic Acid 1.1 0.6 L Calcium Total Bilirubin AST Alkaline Phosphatase Total Protein Albumin Urine Color DARK YELLOW Urine Appearance CLOUDY Urine pH 7.0 Ur Specific [place] 1.014 Urine Protein >=500 H Urine Glucose (UA) NEGATIVE Urine Ketones NEGATIVE Urine Blood LARGE H Ur Squamous Epith Cells RARE 10/12/19 18:38 WBC RBC Hgb Hct MCV MCH MCHC RDW Plt Count Seg Neutrophils % VBG pH VBG pCO2 VBG HCO3 VBG Base Excess Sodium Potassium Chloride Carbon Dioxide Anion Gap BUN Creatinine Est GFR ( Amer) Glucose Lactic Acid < 0.5 L Calcium Total Bilirubin AST Alkaline Phosphatase Total Protein Albumin Urine Color Urine Appearance Urine pH Ur Specific [place] Urine Protein Urine Glucose (UA) Urine Ketones Urine Blood Ur Squamous Epith Cells 10/12/19 10/12/19 12:39 16:09 Troponin I 0.129 0.094 Impressions: Head CT 10/12/19 12:43 IMPRESSION: No significant interval change. No acute intracranial hemorrhage, mass, or evidence of acute territorial infarct. 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 EVIDENCE OF ACUTE STROKE: NO. Chest X-Ray 10/12/19 12:45 IMPRESSION: Cardiomegaly without a superimposed acute cardiopulmonary process. Assessment and Plan - Diagnosis (1) Sepsis associated hypotension Is this a current diagnosis for this admission?: Yes Plan: -Patient sent to the hospital due to altered mental status -BP systolic noted to be 80s -UA consistent with UTI as the source of sepsis -WBC count 14.8, reticulocyte acid 1.1 -Received IV bolus, with improvement of blood pressure -Received 1 dose of Rocephin in the ED -Blood culture and urine culture sent -We will switch to Zosyn pending culture results (2) UTI (urinary tract infection) Qualifiers: Urinary tract infection type: site unspecified Hematuria presence: with hematuria Qualified Code(s): N39.0 - Urinary tract infection, site not specified; R31.9 - Hematuria, unspecified Is this a current diagnosis for this admission?: Yes Plan: -Patient has a Chaves last replaced on 28 September for urinary retention -Came in due to altered mental status with hypotension - UA positive for blood, leukocyte exterase - received 1 dose rocephin. Switched to zosyn since he has risk factors for resistant strain due to recent admission -Awaiting urine cultures (3) Acute encephalopathy Is this a current diagnosis for this admission?: Yes Plan: -Patient has a history of dementia and schizophrenia -Admitted due to agitation and confusion which is not his baseline -CT negative -Altered mental status likely secondary to ongoing UTI -We will continue his home psychiatric medications -Due to improved with treatment of UTI (4) Acute kidney injury Is this a current diagnosis for this admission?: Yes Plan: -Creatinine 1.37, baseline 0.7 -Likely secondary to UTI -We will order renal ultrasound -Continue IV fluids -Daily CMP (5) Schizophrenia Qualifiers: Schizophrenia type: unspecified Qualified Code(s): F20.9 - Schizophrenia, unspecified Is this a current diagnosis for this admission?: Yes Plan: - resumed haldol, olanzapine, benztropine - monitor for agitation (6) Leukocytosis Qualifiers: Leukocytosis type: unspecified Qualified Code(s): D72.825 - Bandemia Is this a current diagnosis for this admission?: Yes Plan: -Secondary to UTI -Continue to monitor (7) Hypotension Qualifiers: Hypotension type: other hypotension type Qualified Code(s): I95.89 - Other hypotension Is this a current diagnosis for this admission?: Yes Plan: -Secondary to sepsis. -Resolved with fluid bolus (8) Hypothyroidism Is this a current diagnosis for this admission?: Yes Plan: -Levothyroxine resumed (9) Obstructive uropathy Is this a current diagnosis for this admission?: Yes Plan: -Has a history of urinary retention -Tamsulosin and finasteride resumed - Time Time Spent with patient: 35 or more minutes Medications reviewed and adjusted accordingly: Yes Anticipated Discharge Disposition: Home with Home Health Anticipated Discharge Timeframe: to be determined - Inpatient Certification Based on my medical assessment, after consideration of the patient's comorbidities, presenting symptoms, or acuity I expect that the services needed warrant INPATIENT care.: Yes I certify that my determination is in accordance with my understanding of Medicare's requirements for reasonable and necessary INPATIENT services [42 CFR 412.3e].: Yes Medical Necessity: Need for IV Antibiotics
[2019-10-12] MEDS ORDERED: (PENDING PHARMACY ID) (Pravastatin Sodium [Pravastatin Sodium] 10 MG) PO SCH (22:00)
[2019-10-12] MEDS ORDERED: PIPERACILLIN/TAZOBACTAM 3.375 GM VIAL IV SCH (22:00)
[2019-10-12] MEDS ORDERED: HALOPERIDOL LACTATE INJ 5 MG/1 ML VIAL ONE (22:07)
[2019-10-12] MEDS ORDERED: HALOPERIDOL LACTATE INJ 5 MG/1 ML VIAL IV PRN (22:23)
[2019-10-12] MEDS ORDERED: OLANZAPINE 5 MG TABLET PO ONE (22:30)
[2019-10-12] MEDS ORDERED: OXCARBAZEPINE 150 MG TABLET PO ONE (22:30)
[2019-10-12] MEDS: FINASTERIDE 5 MG TABLET PO SCH (22:44)
[2019-10-12] MEDS: BENZTROPINE MESYLATE 1 MG TABLET PO SCH (22:44)
[2019-10-12] MEDS: PIPERACILLIN SODIUM/TAZOBACTAM 3.375 GM in NORMAL SALINE 100 ML IV SCH (22:45)
[2019-10-12] MEDS: HEPARIN SOD (PORCINE) 5,000 UNIT/ML 1 ML VIAL SUBCUT SCH (22:45)
[2019-10-12] MEDS: RINGERS SOLUTION,LACTATED 1,000 ML IV PRN (22:45)
[2019-10-13] MEDS: PIPERACILLIN SODIUM/TAZOBACTAM 3.375 GM in NORMAL SALINE 100 ML IV SCH ×3 (05:18→21:32)
[2019-10-13] MEDS: HEPARIN SOD (PORCINE) 5,000 UNIT/ML 1 ML VIAL SUBCUT SCH ×3 (05:19→21:31)
[2019-10-13] MEDS: LEVOTHYROXINE SODIUM 0.075 MG TABLET PO SCH (05:19)
--- NOTE | 2019-10-13 09:53 | RADIOLOGY REPORT (SQ) ---
EXAM DESCRIPTION: U/S RETROPERITON LTD IMAGES COMPLETED DATE/TIME: 10/13/2019 6:22 am REASON FOR STUDY: VIELKA COMPARISON: None. TECHNIQUE: Dynamic and static grayscale images acquired of the kidneys and bladder and recorded on P ACS. Additional selected color Doppler and spectral images recorded. LIMITATIONS: Body habitus. Patient movement. FINDINGS: RIGHT KIDNEY: Normal size. 9 mm cyst. No solid or suspicious masses. No hydronephro sis. No calcifications. LEFT KIDNEY: Normal size. Normal echogenicity. No solid or suspicious masses. No hydronephrosi s. No calcifications. BLADDER: Decompressed with Chaves catheter. OTHER FINDINGS: No other significant finding. IMPRESSION: No hydronephrosis. TECHNICAL DOCUMENTATION: JOB ID: [id number] 2010 [employer]- All Rights Reserved Reading location - IP/workstation name: [email or web address]
[2019-10-13] MEDS ORDERED: (PENDING PHARMACY ID) (Oxcarbazepine [Trileptal] 600 MG) PO SCH (10:00)
[2019-10-13] MEDS: OXCARBAZEPINE 150 MG TABLET PO SCH ×2 (10:11→17:59)
[2019-10-13] MEDS: OLANZAPINE 5 MG TABLET PO SCH ×2 (10:11→17:59)
[2019-10-13] MEDS: TAMSULOSIN HCL 0.4 MG CAP.SR.24H PO SCH (10:11)
[2019-10-13] MEDS: DOCUSATE SODIUM 100 MG/10 ML UDC PO SCH (10:11)
[2019-10-13] MEDS: HALOPERIDOL 5 MG TABLET PO SCH ×2 (10:11→17:59)
[2019-10-13] MEDS: DOXEPIN HCL 25 MG CAPSULE PO SCH (10:11)
[2019-10-13] MEDS: BENZTROPINE MESYLATE 1 MG TABLET PO SCH (10:11)
--- NOTE | 2019-10-13 14:46 | CDI QUERY ---
<LINDA TOVAR - Last Filed: 10/13/19 14:32> CDI Query CDI Review: Dear Provider, In order to capture severity of illness and risk of mortality, we always have to specify type ENCEPHALOPATHY. According to CMS guidelines / rules you may phrase it with "suspect, likely, possible, probable, etc..." if cause is uncertain. Also, Please DO NOT say "vs" IF comparing two possible types, simply document "or"... Or place a comma between them. (Ex: pt has possible acute toxic or metabolic encephalopathy) NOT pt has acute toxic vs metabolic encephalopathy Please specify in progress note type acute encephalopathy noted: ACUTE METABOLIC ENCEPHALOPATHY? ACUTE TOXIC ENCEPHALOPATHY? OTHER? Thanks, Linda Tovar, CDI [phone] <OTONIEL WEBSTER - Last Filed: 10/17/19 19:09> CDI Query CDI Review: Patient came in with acute metabolic encephalopathy
[2019-10-13] MEDS: ACETAMINOPHEN 325 MG TABLET PO PRN (15:11)
[2019-10-13] MEDS: RINGERS SOLUTION,LACTATED 1,000 ML IV PRN (15:11)
[2019-10-13] MEDS: DOCUSATE SODIUM 100 MG CAPSULE PO SCH (17:59)
--- NOTE | 2019-10-13 18:23 | PDOC PROGRESS REPORT ---
Subjective Progress Note for:: 10/13/19 Subjective:: Omega An is a 64/M past medical history of dementia, schizophrenia, who was admitted from the ED due to altered mental status. Most of the history obtained from his healthcare power of claim attorney Colten Bernardo. According to her patient started to get more confused 1 day prior to admission, said that he would pull try to pull out his catheter or spill his urine all over the floor which is not consistent with his baseline mental status. Home health care nurse noted low- grade fever, and they were told to send the patient to the emergency room. In the emergency room, blood pressure noted to be low at systolic of 84. Chaves catheter draining red red-orange liquid. Patient was given IV bolus, started on ceftriaxone. Urinalysis finding consistent with UTI. Lactate was normal. Was admitted for further antibiotic treatment. Chaves catheter replaced in the ED per ED physician. D2 hospital stay 10/13/19. Patient was seen and examined at bedside. He was put on restraints due to agitation. He was still very confused and stated that I am not a real doctor. Complains of pain in his penis. D2 of zosyn, afebrile. Blood culture growing gram negative rods. Reason For Visit: URINARY TRACT INFECTION Physical Exam Vital Signs: Temp Pulse Resp BP Pulse Ox 98.3 F 60 21 H 131/83 H 99 10/13/19 16:32 10/13/19 16:32 10/13/19 16:32 10/13/19 16:32 10/13/19 16:32 Intake & Output 10/12/19 10/13/19 10/14/19 06:59 06:59 06:59 Intake Total 3590 1000 Output Total 1800 Balance 1790 1000 Weight 81.6 kg General appearance: PRESENT: no acute distress, disheveled, other - with periods of agitation and beligerent at times Head exam: PRESENT: atraumatic, normocephalic Eye exam: PRESENT: EOMI, PERRLA Mouth exam: PRESENT: moist Teeth exam: PRESENT: dental caries Neck exam: PRESENT: full ROM Respiratory exam: PRESENT: clear to auscultation kenneth, symmetrical, unlabored. ABSENT: crackles, rales Cardiovascular exam: PRESENT: RRR, +S1, +S2. ABSENT: diastolic murmur, systolic murmur Pulses: PRESENT: +2 pedal pulses bilateral GI/Abdominal exam: PRESENT: normal bowel sounds, soft. ABSENT: rebound, tenderness Gentrourinary exam: PRESENT: indwelling catheter Extremities exam: PRESENT: full ROM. ABSENT: +2 edema Musculoskeletal exam: PRESENT: full ROM Neurological exam: PRESENT: other - Confused with periods of agitation. on soft restraints Psychiatric exam: PRESENT: agitated Focused psych exam: PRESENT: delusional, psychomotor agitation Skin exam: PRESENT: normal color Results Laboratory Results: 10/12/19 12:39 10/12/19 12:39 10/12/19 18:38 Lactic Acid < 0.5 L 10/12/19 10/12/19 12:39 16:09 Troponin I 0.129 0.094 Impressions: Head CT 10/12/19 12:43 IMPRESSION: No significant interval change. No acute intracranial hemorrhage, mass, or evidence of acute territorial infarct. 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 EVIDENCE OF ACUTE STROKE: NO. Chest X-Ray 10/12/19 12:45 IMPRESSION: Cardiomegaly without a superimposed acute cardiopulmonary process. Renal Ultrasound 10/13/19 00:00 IMPRESSION: No hydronephrosis. Assessment and Plan - Diagnosis (1) Sepsis associated hypotension Is this a current diagnosis for this admission?: Yes Plan: -Patient sent to the hospital due to altered mental status -BP systolic noted to be 80s -UA consistent with UTI as the source of sepsis -WBC count 14.8, reticulocyte acid 1.1 -Received IV bolus, with improvement of blood pressure -Received 1 dose of Rocephin in the ED -Blood culture negative x 1 - urine culture gram negative rods -continue zosyn (2) UTI (urinary tract infection) Qualifiers: Urinary tract infection type: site unspecified Hematuria presence: with hematuria Qualified Code(s): N39.0 - Urinary tract infection, site not specified; R31.9 - Hematuria, unspecified Is this a current diagnosis for this admission?: Yes Plan: -Patient has a Chaves last replaced on 28 September for urinary retention -Came in due to altered mental status with hypotension - UA positive for blood, leukocyte exterase - urine culture growing gram negative rods - continue zosyn D2 (3) Acute encephalopathy Is this a current diagnosis for this admission?: Yes Plan: -Acute metabolic encephalopathy from infection on top of schizophrenia -Patient has a history of dementia and schizophrenia -CT negative -Altered mental status likely secondary to ongoing UTI -We will continue his home psychiatric medications -Due to improved with treatment of UTI (4) Acute kidney injury Is this a current diagnosis for this admission?: Yes Plan: -Creatinine 1.37, baseline 0.7 -Likely secondary to UTI -renal US no hydronephrosis -Continue IV fluids -Daily CMP (5) Schizophrenia Qualifiers: Schizophrenia type: unspecified Qualified Code(s): F20.9 - Schizophrenia, unspecified Is this a current diagnosis for this admission?: Yes Plan: - resumed haldol, olanzapine, benztropine - currently on restraints due to agitation - monitor for agitation (6) Leukocytosis Qualifiers: Leukocytosis type: unspecified Qualified Code(s): D72.829 - Elevated white blood cell count, unspecified Is this a current diagnosis for this admission?: Yes Plan: -Secondary to UTI -Continue to monitor (7) Hypotension Qualifiers: Hypotension type: other hypotension type Qualified Code(s): I95.89 - Other hypotension Is this a current diagnosis for this admission?: Yes Plan: -Secondary to sepsis. -Resolved with fluid bolus (8) Hypothyroidism Is this a current diagnosis for this admission?: Yes Plan: -Levothyroxine resumed (9) Obstructive uropathy Is this a current diagnosis for this admission?: Yes Plan: -Has a history of urinary retention - US renal no hydronephrosis -Tamsulosin and finasteride resumed - Time Time Spent with patient: 25-34 minutes Medications reviewed and adjusted accordingly: Yes Anticipated Discharge Disposition: Home, Self Care Anticipated Discharge Timeframe: to be determined.
[2019-10-13] MEDS: FINASTERIDE 5 MG TABLET PO SCH (21:34)
[2019-10-14] MEDS ORDERED: MAGNESIUM HYDROXIDE SUSP 30 ML UDCUP PO PRN (03:32)
[2019-10-14] MEDS: HEPARIN SOD (PORCINE) 5,000 UNIT/ML 1 ML VIAL SUBCUT SCH ×3 (05:14→23:06)
[2019-10-14] MEDS: LEVOTHYROXINE SODIUM 0.075 MG TABLET PO SCH (05:14)
[2019-10-14] MEDS: PIPERACILLIN SODIUM/TAZOBACTAM 3.375 GM in NORMAL SALINE 100 ML IV SCH ×3 (05:15→23:20)
[2019-10-14 07:25] LABS: ABSOLUTE EOSINOPHILS # (AUTO) 0.2 10^3/uL (0.0-0.6); ABSOLUTE LYMPHOCYTES (AUTO) 1.5 10^3/uL (0.5-4.7); ABSOLUTE MONOCYTES (AUTO) 0.7 10^3/uL (0.1-1.4); ABSOLUTE NEUT (AUTO) 6.9 10^3/uL (1.7-8.2); BASOPHILS % (AUTO) 0.4 % (0-2); EOSINOPHILS % (AUTO) 2.5 % (0-6); HEMATOCRIT 26.4 % (37.9-51.0); HEMOGLOBIN 9.1 g/dL (13.5-17.0); LYMPHOCYTES % (AUTO) 16.2 % (13-45); MEAN CORPUSCULAR HEMOGLOBIN 30.1 pg (27.0-33.4); MEAN CORPUSCULAR HGB CONC 34.6 g/dL (32.0-36.0); MEAN CORPUSCULAR VOLUME 87 fl (80-97); MONOCYTES % (AUTO) 7.2 % (3-13); PLATELET COUNT 246 10^3/uL (150-450); RED BLOOD COUNT 3.03 10^6/uL (4.35-5.55); RED CELL DISTRIBUTION WIDTH 14.9 % (11.5-14.0); SEGMENTED NEUTROPHILS % (AUTO) 73.7 % (42-78); TOTAL CELLS COUNTED % (AUTO) 100 %; WHITE BLOOD COUNT 9.4 10^3/uL (4.0-10.5)
[2019-10-14 07:50] LABS: ALBUMIN 3.1 g/dL (3.5-5.0); ALKALINE PHOSPHATASE 48 U/L (38-126); ANION GAP 6 (5-19); ASPARTATE AMINO TRANSFERASE 17 U/L (17-59); BILIRUBIN,DIRECT 0.3 mg/dL (0.0-0.4); BILIRUBIN,TOTAL 0.5 mg/dL (0.2-1.3); BLOOD UREA NITROGEN 9 mg/dL (7-20); CALCIUM 8.6 mg/dL (8.4-10.2); CARBON DIOXIDE 25 mmol/L (22-30); CHLORIDE 105 mmol/L (98-107); GLUCOSE 96 mg/dL (75-110); POTASSIUM 3.8 mmol/L (3.6-5.0); TOTAL PROTEIN 5.5 g/dL (6.3-8.2)
[2019-10-14] MEDS: OLANZAPINE 5 MG TABLET PO SCH ×2 (10:40→17:36)
[2019-10-14] MEDS: DOCUSATE SODIUM 100 MG CAPSULE PO SCH ×2 (10:40→17:36)
[2019-10-14] MEDS: OXCARBAZEPINE 150 MG TABLET PO SCH ×2 (10:40→17:35)
[2019-10-14] MEDS: SENNOSIDES/DOCUSATE 8.6-50 MG 1 EACH TABLET PO SCH (10:40)
[2019-10-14] MEDS: TAMSULOSIN HCL 0.4 MG CAP.SR.24H PO SCH (10:41)
[2019-10-14] MEDS: HALOPERIDOL 5 MG TABLET PO SCH ×2 (10:41→17:36)
[2019-10-14] MEDS: BENZTROPINE MESYLATE 1 MG TABLET PO SCH (10:41)
[2019-10-14] MEDS: DOXEPIN HCL 25 MG CAPSULE PO SCH (10:41)
[2019-10-14] MEDS: RINGERS SOLUTION,LACTATED 1,000 ML IV PRN (15:58)
[2019-10-14] MEDS ORDERED: MAGNESIUM CITRATE 296 ML BOTTLE PO ONE (17:00)
--- NOTE | 2019-10-14 17:21 | PDOC PROGRESS REPORT ---
Subjective Progress Note for:: 10/14/19 Subjective:: Omega An is a 64/M past medical history of dementia, schizophrenia, who was admitted from the ED due to altered mental status. Most of the history obtained from his healthcare power of attorney general Colten Bernardo. According to her patient started to get more confused 1 day prior to admission, said that he would pull try to pull out his catheter or spill his urine all over the floor which is not consistent with his baseline mental status. Home health care nurse noted low- grade fever, and they were told to send the patient to the emergency room. In the emergency room, blood pressure noted to be low at systolic of 84. Harrison catheter draining red red-orange liquid. Patient was given IV bolus, started on ceftriaxone. Urinalysis finding consistent with UTI. Lactate was normal. Was admitted for further antibiotic treatment. Harrison catheter replaced in the ED per ED physician. D2 hospital stay 10/13/19. Patient was seen and examined at bedside. He was put on restraints due to agitation. He was still very confused and stated that I am not a real doctor. Complains of pain in his penis. D2 of zosyn, afebrile. Blood culture growing gram negative rods. D3 hospital stay 10/14/19. Patient was seen and examined at bedside. He was off restraints and seems much more coherent today, less agitated. D3 of zosyn, afebrile. Still complains of pain around harrison catheter area. No Nausea/vomiting. No chest pain, SOB. Urine cx growing gram negative rods. Blood cx negative x 2. On D3 zosyn. Reason For Visit: URINARY TRACT INFECTION Physical Exam Vital Signs: Temp Pulse Resp BP Pulse Ox 97.6 F 70 18 138/93 H 98 10/14/19 15:03 10/14/19 15:03 10/14/19 15:03 10/14/19 15:03 10/14/19 15:03 Intake & Output 10/13/19 10/14/19 10/15/19 06:59 06:59 06:59 Intake Total 3590 1200 1220 Output Total 1800 400 450 Balance 1790 800 770 Weight 81.6 kg 81.6 kg General appearance: PRESENT: no acute distress, disheveled, well-developed, well-nourished Head exam: PRESENT: atraumatic, normocephalic Eye exam: PRESENT: EOMI Mouth exam: PRESENT: moist Neck exam: PRESENT: full ROM. ABSENT: JVD, lymphadenopathy, meningismus Respiratory exam: PRESENT: clear to auscultation kenneth, symmetrical, unlabored Cardiovascular exam: PRESENT: RRR, +S1, +S2 Pulses: PRESENT: +2 pedal pulses bilateral GI/Abdominal exam: PRESENT: normal bowel sounds, soft. ABSENT: distended, rebound, tenderness Gentrourinary exam: PRESENT: indwelling catheter Extremities exam: PRESENT: full ROM. ABSENT: pedal edema Musculoskeletal exam: PRESENT: full ROM Neurological exam: PRESENT: alert, awake Psychiatric exam: PRESENT: agitated, anxious Focused psych exam: PRESENT: restlessness Results Laboratory Results: 10/14/19 06:56 10/14/19 06:56 10/14/19 10/14/19 06:56 06:56 WBC 9.4 RBC 3.03 L Hgb 9.1 L Hct 26.4 L MCV 87 MCH 30.1 MCHC 34.6 RDW 14.9 H Plt Count 246 Seg Neutrophils % 73.7 Sodium 135.5 L Potassium 3.8 Chloride 105 Carbon Dioxide 25 Anion Gap 6 BUN 9 Creatinine 0.78 Est GFR ( Amer) > 60 Glucose 96 Calcium 8.6 Total Bilirubin 0.5 AST 17 Alkaline Phosphatase 48 Total Protein 5.5 L Albumin 3.1 L 10/12/19 10/12/19 12:39 16:09 Troponin I 0.129 0.094 Impressions: Head CT 10/12/19 12:43 IMPRESSION: No significant interval change. No acute intracranial hemorrhage, mass, or evidence of acute territorial infarct. 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 EVIDENCE OF ACUTE STROKE: NO. Chest X-Ray 10/12/19 12:45 IMPRESSION: Cardiomegaly without a superimposed acute cardiopulmonary process. Renal Ultrasound 10/13/19 00:00 IMPRESSION: No hydronephrosis. Assessment and Plan - Diagnosis (1) Sepsis associated hypotension Is this a current diagnosis for this admission?: Yes Plan: -RESOLVED -Patient sent to the hospital due to altered mental status -BP systolic noted to be 80s -UA consistent with UTI as the source of sepsis -WBC count 14.8>9.4 -Received 1 dose of Rocephin in the ED -Blood culture negative x 2 - urine culture pseudomonas -continue zosyn awaiting sensitivity (2) UTI (urinary tract infection) Qualifiers: Urinary tract infection type: site unspecified Hematuria presence: with hematuria Qualified Code(s): N39.0 - Urinary tract infection, site not specified; R31.9 - Hematuria, unspecified Is this a current diagnosis for this admission?: Yes Plan: -Patient has a Harrison last replaced on 28 September for urinary retention -Came in due to altered mental status with hypotension - UA positive for blood, leukocyte exterase - urine culture growing gram negative rods - continue zosyn D3 (3) Acute encephalopathy Is this a current diagnosis for this admission?: Yes Plan: -Acute metabolic encephalopathy from infection on top of schizophrenia -Patient has a history of dementia and schizophrenia -CT negative -Altered mental status likely secondary to ongoing UTI -We will continue his home psychiatric medications -Due to improved with treatment of UTI (4) Acute kidney injury Is this a current diagnosis for this admission?: Yes Plan: -resolved - Creatinine 1.37>0.78, baseline 0.7 -Likely secondary to UTI -renal US no hydronephrosis -Continue IV fluids -Daily CMP (5) Schizophrenia Qualifiers: Schizophrenia type: unspecified Qualified Code(s): F20.9 - Schizophrenia, unspecified Is this a current diagnosis for this admission?: Yes Plan: - resumed haldol, olanzapine, benztropine - off restraints - monitor for agitation (6) Leukocytosis Qualifiers: Leukocytosis type: unspecified Qualified Code(s): D72.829 - Elevated white blood cell count, unspecified Is this a current diagnosis for this admission?: Yes Plan: -resolved -Secondary to UTI -Continue to monitor (7) Hypotension Qualifiers: Hypotension type: other hypotension type Qualified Code(s): I95.89 - Other hypotension Is this a current diagnosis for this admission?: Yes Plan: -Secondary to sepsis. -Resolved with fluid bolus (8) Hypothyroidism Is this a current diagnosis for this admission?: Yes Plan: -Levothyroxine resumed (9) Obstructive uropathy Is this a current diagnosis for this admission?: Yes Plan: -Has a history of urinary retention - US renal no hydronephrosis -Tamsulosin and finasteride resumed - Time Time Spent with patient: 25-34 minutes Medications reviewed and adjusted accordingly: Yes Anticipated Discharge Disposition: Home, Self Care Anticipated Discharge Timeframe: to be determined
[2019-10-14] MEDS: FINASTERIDE 5 MG TABLET PO SCH (23:20)
[2019-10-15] MEDS ORDERED: HYDRALAZINE HCL INJ/PF 20 MG/1 ML SDV IV PRN (00:39)
[2019-10-15] MEDS: ACETAMINOPHEN 325 MG TABLET PO PRN (02:07)
[2019-10-15] MEDS: HEPARIN SOD (PORCINE) 5,000 UNIT/ML 1 ML VIAL SUBCUT SCH ×3 (05:25→21:35)
[2019-10-15] MEDS: LEVOTHYROXINE SODIUM 0.075 MG TABLET PO SCH (05:25)
[2019-10-15] MEDS: PIPERACILLIN SODIUM/TAZOBACTAM 3.375 GM in NORMAL SALINE 100 ML IV SCH (05:26)
[2019-10-15 06:41] LABS: ALBUMIN 3.2 g/dL (3.5-5.0); ALKALINE PHOSPHATASE 48 U/L (38-126); ANION GAP 7 (5-19); ASPARTATE AMINO TRANSFERASE 31 U/L (17-59); BILIRUBIN,DIRECT 0.3 mg/dL (0.0-0.4); BILIRUBIN,TOTAL 0.5 mg/dL (0.2-1.3); BLOOD UREA NITROGEN 9 mg/dL (7-20); CALCIUM 8.6 mg/dL (8.4-10.2); CARBON DIOXIDE 23 mmol/L (22-30); CHLORIDE 107 mmol/L (98-107); GLUCOSE 130 mg/dL (75-110); POTASSIUM 3.8 mmol/L (3.6-5.0); TOTAL PROTEIN 5.9 g/dL (6.3-8.2)
[2019-10-15 06:55] LABS: ABSOLUTE BASOPHILS # (AUTO) 0.1 10^3/uL (0.0-0.2); ABSOLUTE EOSINOPHILS # (AUTO) 0.4 10^3/uL (0.0-0.6); ABSOLUTE LYMPHOCYTES (AUTO) 1.8 10^3/uL (0.5-4.7); ABSOLUTE MONOCYTES (AUTO) 0.6 10^3/uL (0.1-1.4); ABSOLUTE NEUT (AUTO) 6.2 10^3/uL (1.7-8.2); BASOPHILS % (AUTO) 0.7 % (0-2); EOSINOPHILS % (AUTO) 4.6 % (0-6); HEMATOCRIT 26.3 % (37.9-51.0); LYMPHOCYTES % (AUTO) 20.3 % (13-45); MEAN CORPUSCULAR HEMOGLOBIN 29.9 pg (27.0-33.4); MEAN CORPUSCULAR HGB CONC 34.3 g/dL (32.0-36.0); MEAN CORPUSCULAR VOLUME 87 fl (80-97); MONOCYTES % (AUTO) 6.3 % (3-13); PLATELET COUNT 245 10^3/uL (150-450); RED BLOOD COUNT 3.01 10^6/uL (4.35-5.55); RED CELL DISTRIBUTION WIDTH 14.5 % (11.5-14.0); SEGMENTED NEUTROPHILS % (AUTO) 68.1 % (42-78); TOTAL CELLS COUNTED % (AUTO) 100 %; WHITE BLOOD COUNT 9.1 10^3/uL (4.0-10.5)
[2019-10-15] MEDS: OLANZAPINE 5 MG TABLET PO SCH ×2 (10:31→17:17)
[2019-10-15] MEDS: LEVOFLOXACIN 750 MG TABLET PO SCH (10:31)
[2019-10-15] MEDS: DOXEPIN HCL 25 MG CAPSULE PO SCH (10:32)
[2019-10-15] MEDS: BENZTROPINE MESYLATE 1 MG TABLET PO SCH (10:32)
[2019-10-15] MEDS: TAMSULOSIN HCL 0.4 MG CAP.SR.24H PO SCH (10:32)
[2019-10-15] MEDS: OXCARBAZEPINE 150 MG TABLET PO SCH ×2 (10:32→17:17)
[2019-10-15] MEDS: HALOPERIDOL 5 MG TABLET PO SCH ×2 (10:32→17:17)
[2019-10-15] MEDS: SENNOSIDES/DOCUSATE 8.6-50 MG 1 EACH TABLET PO SCH ×2 (10:35→15:55)
[2019-10-15] MEDS: DOCUSATE SODIUM 100 MG CAPSULE PO SCH ×3 (10:35→17:15)
--- NOTE | 2019-10-15 11:06 | PDOC PROGRESS REPORT ---
Subjective Progress Note for:: 10/15/19 Subjective:: Omega An is a 64/M past medical history of dementia, schizophrenia, who was admitted from the ED due to altered mental status. Most of the history obtained from his healthcare power of trade mark attorney Colten Bernardo. According to her patient started to get more confused 1 day prior to admission, said that he would pull try to pull out his catheter or spill his urine all over the floor which is not consistent with his baseline mental status. Home health care nurse noted low- grade fever, and they were told to send the patient to the emergency room. In the emergency room, blood pressure noted to be low at systolic of 84. Harrison catheter draining red red-orange liquid. Patient was given IV bolus, started on ceftriaxone. Urinalysis finding consistent with UTI. Lactate was normal. Was admitted for further antibiotic treatment. Harrison catheter replaced in the ED per ED physician. D2 hospital stay 10/13/19. Patient was seen and examined at bedside. He was put on restraints due to agitation. He was still very confused and stated that I am not a real doctor. Complains of pain in his penis. D2 of zosyn, afebrile. Blood culture growing gram negative rods. D3 hospital stay 10/14/19. Patient was seen and examined at bedside. He was off restraints and seems much more coherent today, less agitated. D3 of zosyn, afebrile. Still complains of pain around harrison catheter area. No Nausea/vomiting. No chest pain, SOB. Urine cx growing gram negative rods. Blood cx negative x 2. On D3 zosyn. D4 hospital stay 10/15/19. Patient was seen and examined at bedside. Off restraints, less agitated, much more coherent. Antibiotics switched to levaquin PO today. Afebrile with good appetite. Will trial to take out harrison and see if he is able to void. Reason For Visit: URINARY TRACT INFECTION Physical Exam Vital Signs: Temp Pulse Resp BP Pulse Ox 97.9 F 61 20 135/38 H 98 10/15/19 08:11 10/15/19 08:11 10/15/19 08:11 10/15/19 08:11 10/15/19 08:11 Intake & Output 10/14/19 10/15/19 10/16/19 06:59 06:59 06:59 Intake Total 1200 3300 Output Total 400 1475 Balance 800 1825 Weight 81.6 kg 82.4 kg General appearance: PRESENT: no acute distress, well-developed, well-nourished, other Head exam: PRESENT: atraumatic, normocephalic Eye exam: PRESENT: EOMI, PERRLA Mouth exam: PRESENT: moist Neck exam: PRESENT: full ROM. ABSENT: JVD Respiratory exam: PRESENT: clear to auscultation kenneth, symmetrical, unlabored. ABSENT: wheezes Cardiovascular exam: PRESENT: RRR, +S2 Pulses: PRESENT: +2 pedal pulses bilateral GI/Abdominal exam: PRESENT: normal bowel sounds, soft. ABSENT: tenderness Gentrourinary exam: PRESENT: indwelling catheter Extremities exam: PRESENT: full ROM Musculoskeletal exam: PRESENT: full ROM Neurological exam: PRESENT: alert, awake Psychiatric exam: PRESENT: agitated Focused psych exam: PRESENT: restlessness Results Laboratory Results: 10/15/19 06:01 10/15/19 06:01 10/15/19 10/15/19 06:01 06:01 WBC 9.1 RBC 3.01 L Hgb 9.0 L Hct 26.3 L MCV 87 MCH 29.9 MCHC 34.3 RDW 14.5 H Plt Count 245 Seg Neutrophils % 68.1 Sodium 136.8 L Potassium 3.8 Chloride 107 Carbon Dioxide 23 Anion Gap 7 BUN 9 Creatinine 0.73 Est GFR ( Amer) > 60 Glucose 130 H Calcium 8.6 Total Bilirubin 0.5 AST 31 Alkaline Phosphatase 48 Total Protein 5.9 L Albumin 3.2 L 10/12/19 10/12/19 12:39 16:09 Troponin I 0.129 0.094 Impressions: Head CT 10/12/19 12:43 IMPRESSION: No significant interval change. No acute intracranial hemorrhage, mass, or evidence of acute territorial infarct. 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 EVIDENCE OF ACUTE STROKE: NO. Chest X-Ray 10/12/19 12:45 IMPRESSION: Cardiomegaly without a superimposed acute cardiopulmonary process. Renal Ultrasound 10/13/19 00:00 IMPRESSION: No hydronephrosis. Assessment and Plan - Diagnosis (1) Sepsis associated hypotension Is this a current diagnosis for this admission?: Yes Plan: -RESOLVED -Patient sent to the hospital due to altered mental status -BP systolic noted to be 80s -UA consistent with UTI as the source of sepsis -WBC count 14.8>9.4 -Received 1 dose of Rocephin in the ED -Blood culture negative x 2 - urine culture pseudomonas sensitive to zosyn and levaquin - abx switched to levaquin PO - discharge tomorrow if he's able to urinate spontaneously (2) UTI (urinary tract infection) Qualifiers: Urinary tract infection type: site unspecified Hematuria presence: with hematuria Qualified Code(s): N39.0 - Urinary tract infection, site not specified; R31.9 - Hematuria, unspecified Is this a current diagnosis for this admission?: Yes Plan: -Patient has a Harrison last replaced on 28 September for urinary retention -Came in due to altered mental status with hypotension - UA positive for blood, leukocyte exterase - urine culture growing gram negative rods - abx switched to levaquin PO (3) Acute encephalopathy Is this a current diagnosis for this admission?: Yes Plan: -IMPROVED. He is back to his baseline - Acute metabolic encephalopathy from infection on top of schizophrenia -Patient has a history of dementia and schizophrenia -CT negative -Altered mental status likely secondary to ongoing UTI -We will continue his home psychiatric medications -Due to improved with treatment of UTI (4) Acute kidney injury Is this a current diagnosis for this admission?: Yes Plan: -resolved - Creatinine 1.37>0.78, baseline 0.7 -Likely secondary to UTI -renal US no hydronephrosis -Daily CMP (5) Schizophrenia Qualifiers: Schizophrenia type: unspecified Qualified Code(s): F20.9 - Schizophrenia, unspecified Is this a current diagnosis for this admission?: Yes Plan: - resumed haldol, olanzapine, benztropine - off restraints - monitor for agitation (6) Leukocytosis Qualifiers: Leukocytosis type: unspecified Qualified Code(s): D72.829 - Elevated white blood cell count, unspecified Is this a current diagnosis for this admission?: Yes Plan: -resolved -Secondary to UTI -Continue to monitor (7) Hypotension Qualifiers: Hypotension type: other hypotension type Qualified Code(s): I95.89 - Other hypotension Is this a current diagnosis for this admission?: Yes Plan: -Secondary to sepsis. -Resolved with fluid bolus (8) Obstructive uropathy Is this a current diagnosis for this admission?: Yes Plan: -Has a history of urinary retention - US renal no hydronephrosis - will try to take out harrison today and see if she's able to pee -Tamsulosin and finasteride resumed (9) Hypothyroidism Is this a current diagnosis for this admission?: Yes Plan: -Levothyroxine resumed - Time Time Spent with patient: 25-34 minutes Medications reviewed and adjusted accordingly: Yes Anticipated Discharge Disposition: Home, Self Care Anticipated Discharge Timeframe: to be determined
[2019-10-15] MEDS ORDERED: LISINOPRIL 10 MG TABLET PO ONE (18:45)
[2019-10-15] MEDS: FINASTERIDE 5 MG TABLET PO SCH (21:38)
[2019-10-15] MEDS: HYDRALAZINE HCL 50 MG TABLET PO PRN (23:04)
[2019-10-16] MEDS: LEVOTHYROXINE SODIUM 0.075 MG TABLET PO SCH (05:03)
[2019-10-16] MEDS: HEPARIN SOD (PORCINE) 5,000 UNIT/ML 1 ML VIAL SUBCUT SCH ×3 (05:03→21:37)
[2019-10-16] MEDS: HYDRALAZINE HCL 50 MG TABLET PO PRN ×2 (05:03→21:36)
--- NOTE | 2019-10-16 06:42 | PDOC DISCHARGE SUMMARY ---
Impression - Admit/DC Date/PCP Admission Date/Primary Care Provider: 10/12/19 15:47 DAVID BUTTERFIELD NP Discharge Date: 10/16/19 - Discharge Diagnosis (1) Sepsis associated hypotension Is this a current diagnosis for this admission?: Yes (2) UTI (urinary tract infection) Is this a current diagnosis for this admission?: Yes (3) Acute encephalopathy Is this a current diagnosis for this admission?: Yes (4) Acute kidney injury Is this a current diagnosis for this admission?: Yes (5) Schizophrenia Is this a current diagnosis for this admission?: Yes (6) Leukocytosis Is this a current diagnosis for this admission?: Yes (7) Hypotension Is this a current diagnosis for this admission?: Yes (8) Obstructive uropathy Is this a current diagnosis for this admission?: Yes (9) Hypothyroidism Is this a current diagnosis for this admission?: Yes - Additional Information Resuscitation Status: Full Code Discharge Activity: Activity As Tolerated Referrals: DAVID BUTTERFIELD NP [Primary Care Provider] - Follow up as needed Home Medications: Pravastatin Sodium 10 mg PO QHS 04/25/16 Levothyroxine Sodium [Synthroid 0.075 mg Tablet] 0.075 mg PO Q6AM 09/26/16 Benztropine Mesylate 1 mg PO DAILY 10/14/17 Finasteride 5 mg PO DAILY 10/14/17 Olanzapine 15 mg PO BID 10/14/17 Oxcarbazepine [Trileptal] 600 mg PO BID 10/14/17 Tamsulosin HCl [Flomax 0.4 mg Cap.sr] 0.4 mg PO QPM 12/17/17 Haloperidol [Haldol 5 mg Tablet] 5 mg PO BID 09/21/19 Potassium Chloride [Klor-Con M20] 20 meq PO DAILY 09/21/19 Amlodipine Besylate [Norvasc 5 mg Tablet] 5 mg PO Q12 #60 tablet 09/23/19 Calcium Carbonate/Vitamin D3 [Calcium 600-Vit D3 400 Tablet] 1 each PO BID 10/12/19 Eszopiclone 3 mg PO QHS 10/12/19 Ferrous Sulfate [Feosol 325 mg Tablet] 325 mg PO DAILY 10/12/19 Gabapentin [Neurontin 300 mg Capsule] 300 mg PO Q8HP PRN 10/12/19 Lisinopril [Prinivil] 20 mg PO DAILY 10/12/19 History of Present Illiness History of Present Illness: OMEGA JARAMILLO is a 64 year old male, past medical history of dementia, schizophrenia, who was admitted from the ED due to altered mental status. Most of the history obtained from his healthcare power of attorney law clerk Colten Bernardo. According to her patient started to get more confused 1 day prior to admission, said that he would pull try to pull out his catheter or spill his urine all over the floor which is not consistent with his baseline mental status. Home health care nurse noted low-grade fever, and they were told to send the patient to the emergency room. In the emergency room, blood pressure noted to be low at systolic of 84. Harrison catheter draining red red-orange liquid. Patient was given IV bolus, started on ceftriaxone. Urinalysis finding consistent with UTI. Lactate was normal. Was admitted for further antibiotic treatment. Harrison catheter replaced in the ED Of note patient was last admitted at [facility] September 20September 14m for GI bleed, also noted with low sodium levels. During prior admission he was treated for UTI with urinary retention. He was discharged with a Harrison. He was seen at his regular urologist clinic on September 27 when they removed his catheter, however he was unable to void hence it was put back the very next day. Hospital Course Hospital Course: Omega Jaramillo is a 64/M past medical history of dementia, schizophrenia, who was admitted from the ED due to altered mental status. Most of the history obtained from his healthcare power of attorney law clerk Colten Bernardo. According to her patient started to get more confused 1 day prior to admission, said that he would pull try to pull out his catheter or spill his urine all over the floor which is not consistent with his baseline mental status. Home health care nurse noted low-grade fever, and they were told to send the patient to the emergency room. In the emergency room, blood pressure noted to be low at systolic of 84. Harrison catheter draining red red-orange liquid. Patient was given IV bolus, started on ceftriaxone. Urinalysis finding consistent with UTI. Lactate was normal. Was admitted for further antibiotic treatment. Harrison catheter replaced in the ED per ED physician. D2 hospital stay 10/13/19. Patient was seen and examined at bedside. He was put on restraints due to agitation. He was still very confused and stated that I am not a real doctor. Complains of pain in his penis. D2 of zosyn, afebrile. Blood culture growing gram negative rods. D3 hospital stay 10/14/19. Patient was seen and examined at bedside. He was off restraints and seems much more coherent today, less agitated. D3 of zosyn, afebrile. Still complains of pain around harrison catheter area. No Nausea/vomiting. No chest pain, SOB. Urine cx growing gram negative rods. Blood cx negative x 2. On D3 zosyn. D4 hospital stay 10/15/19. Patient was seen and examined at bedside. Off restraints, less agitated, much more coherent. Antibiotics switched to levaquin PO today. Afebrile with good appetite. Will trial to take out harrison and see if he is able to void. D5 Hospital stay. Patient was seen and examined at bedside. He is back to his baseline mental status. WBC count normal. Afebrile. Tolerated levaquin. Harrisno was pulled out around noon yesterday and he was observed for >6hrs if he can void spontaneously. However, he was unable to void hence harrison put back in. He was discharged on levaquin based on sensitivity result. urine cx grew Pseudomonas sensitive to levaquin and zosyn. He will be discharged home with a harrison and follow up with his urologist in 2 weeks. Physical Exam Vital Signs: Temp Pulse Resp BP Pulse Ox 97.7 F 71 22 H 189/69 H 94 10/15/19 20:00 10/15/19 22:44 10/15/19 20:00 10/15/19 22:44 10/15/19 22:44 Intake & Output 10/14/19 10/15/19 10/16/19 06:59 06:59 06:59 Intake Total 1200 3300 4490 Output Total 400 1475 2960 Balance 800 1825 1530 Weight 81.6 kg 82.4 kg 85.4 kg General appearance: PRESENT: no acute distress, cooperative Head exam: PRESENT: atraumatic, normocephalic Eye exam: PRESENT: EOMI, PERRLA Mouth exam: PRESENT: moist Neck exam: PRESENT: full ROM. ABSENT: JVD Respiratory exam: PRESENT: clear to auscultation kenneth, symmetrical, unlabored. ABSENT: rales Cardiovascular exam: PRESENT: RRR, +S1, +S2. ABSENT: diastolic murmur Pulses: PRESENT: normal radial pulses GI/Abdominal exam: PRESENT: normal bowel sounds, soft. ABSENT: rebound, tenderness Musculoskeletal exam: PRESENT: full ROM Neurological exam: PRESENT: alert, awake, oriented to place Focused psych exam: PRESENT: restlessness Skin exam: PRESENT: normal color Results Laboratory Results: WBC 9.1 10^3/uL (4.0-10.5) 10/15/19 06:01 RBC 3.01 10^6/uL (4.35-5.55) L 10/15/19 06:01 Hgb 9.0 g/dL (13.5-17.0) L 10/15/19 06:01 Hct 26.3 % (37.9-51.0) L 10/15/19 06:01 MCV 87 fl (80-97) 10/15/19 06:01 MCH 29.9 pg (27.0-33.4) 10/15/19 06:01 MCHC 34.3 g/dL (32.0-36.0) 10/15/19 06:01 RDW 14.5 % (11.5-14.0) H 10/15/19 06:01 Plt Count 245 10^3/uL (150-450) 10/15/19 06:01 Lymph % (Auto) 20.3 % (13-45) 10/15/19 06:01 Cloud % (Auto) 6.3 % (3-13) 10/15/19 06:01 Eos % (Auto) 4.6 % (0-6) 10/15/19 06:01 Baso % (Auto) 0.7 % (0-2) 10/15/19 06:01 Absolute Neuts (auto) 6.2 10^3/uL (1.7-8.2) 10/15/19 06:01 Absolute Lymphs (auto) 1.8 10^3/uL (0.5-4.7) 10/15/19 06:01 Absolute Monos (auto) 0.6 10^3/uL (0.1-1.4) 10/15/19 06:01 Absolute Eos (auto) 0.4 10^3/uL (0.0-0.6) 10/15/19 06:01 Absolute Basos (auto) 0.1 10^3/uL (0.0-0.2) 10/15/19 06:01 Seg Neutrophils % 68.1 % (42-78) 10/15/19 06:01 PT 14.0 SEC (11.4-15.4) 10/12/19 12:39 INR 1.06 10/12/19 12:39 VBG pH 7.38 (7.30-7.42) 10/12/19 12:39 VBG pCO2 41.9 mmHg (35-63) 10/12/19 12:39 VBG HCO3 24.1 mmol/L (20-32) 10/12/19 12:39 VBG Base Excess -1.1 mmol/L 10/12/19 12:39 Sodium 136.8 mmol/L (137-145) L 10/15/19 06:01 Potassium 3.8 mmol/L (3.6-5.0) 10/15/19 06:01 Chloride 107 mmol/L (98-107) 10/15/19 06:01 Carbon Dioxide 23 mmol/L (22-30) 10/15/19 06:01 Anion Gap 7 (5-19) 10/15/19 06:01 BUN 9 mg/dL (7-20) 10/15/19 06:01 Creatinine 0.73 mg/dL (0.52-1.25) 10/15/19 06:01 Est GFR ( Amer) > 60 (>60) 10/15/19 06:01 Est GFR (MDRD) Non-Af > 60 (>60) 10/15/19 06:01 Glucose 130 mg/dL (75-110) H 10/15/19 06:01 POC Glucose 128 mg/dL (70-110) H 10/16/19 06:07 Lactic Acid < 0.5 mmol/L (0.7-2.1) L 10/12/19 18:38 Calcium 8.6 mg/dL (8.4-10.2) 10/15/19 06:01 Total Bilirubin 0.5 mg/dL (0.2-1.3) 10/15/19 06:01 Direct Bilirubin 0.3 mg/dL (0.0-0.4) 10/15/19 06:01 Neonat Total Bilirubin Not Reportable 10/15/19 06:01 Neonat Direct Bilirubin Not Reportable 10/15/19 06:01 Neonat Indirect Bili Not Reportable 10/15/19 06:01 AST 31 U/L (17-59) 10/15/19 06:01 ALT 19 U/L (<50) 10/15/19 06:01 Alkaline Phosphatase 48 U/L (38-126) 10/15/19 06:01 Troponin I 0.094 ng/mL 10/12/19 16:09 Total Protein 5.9 g/dL (6.3-8.2) L 10/15/19 06:01 Albumin 3.2 g/dL (3.5-5.0) L 10/15/19 06:01 Urine Color DARK YELLOW 10/12/19 13:48 Urine Appearance CLOUDY 10/12/19 13:48 Urine pH 7.0 (5.0-9.0) 10/12/19 13:48 Ur Specific [place] 1.014 10/12/19 13:48 Urine Protein >=500 mg/dL (NEGATIVE) H 10/12/19 13:48 Urine Glucose (UA) NEGATIVE mg/dL (NEGATIVE) 10/12/19 13:48 Urine Ketones NEGATIVE mg/dL (NEGATIVE) 10/12/19 13:48 Urine Blood LARGE (NEGATIVE) H 10/12/19 13:48 Urine Nitrite (Reflex) NEGATIVE (NEGATIVE) 10/12/19 13:48 Urine Bilirubin NEGATIVE (NEGATIVE) 10/12/19 13:48 Urine Urobilinogen NEGATIVE mg/dL (<2.0) 10/12/19 13:48 Leukocyte Esterase Rfl LARGE (NEGATIVE) H 10/12/19 13:48 Urine RBC >100 /HPF 10/12/19 13:48 Urine WBC 50-100 /HPF 10/12/19 13:48 Ur Squamous Epith Cells RARE /HPF 10/12/19 13:48 Urine Bacteria 1+ /HPF 10/12/19 13:48 Hyaline Casts 1-5 /LPF 10/12/19 13:48 Urine Ascorbic Acid NEGATIVE (NEGATIVE) 10/12/19 13:48 Urine Opiates Screen NEGATIVE 10/12/19 13:48 Urine Methadone Screen NEGATIVE 10/12/19 13:48 Ur Barbiturates Screen NEGATIVE 10/12/19 13:48 Valproic Acid < 10.0 ug/mL (50.0-120.0) L 10/12/19 12:39 Ur Phencyclidine Scrn NEGATIVE 10/12/19 13:48 Ur Amphetamines Screen NEGATIVE 10/12/19 13:48 U Benzodiazepines Scrn NEGATIVE 10/12/19 13:48 Urine Cocaine Screen NEGATIVE 10/12/19 13:48 U Marijuana (THC) Screen NEGATIVE 10/12/19 13:48 Serum Alcohol < 10 mg/dL (NONE DETECTED) 10/12/19 12:39 10/12/19 10/12/19 12:39 16:09 Troponin I 0.129 0.094 Impressions: Head CT 10/12/19 12:43 IMPRESSION: No significant interval change. No acute intracranial hemorrhage, mass, or evidence of acute territorial infarct. 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 EVIDENCE OF ACUTE STROKE: NO. Chest X-Ray 10/12/19 12:45 IMPRESSION: Cardiomegaly without a superimposed acute cardiopulmonary process. Renal Ultrasound 10/13/19 00:00 IMPRESSION: No hydronephrosis. Plan Plan of Treatment: - he will be discharged on harrison since attempt to take it out failed while he was admitted - follow up with his urologist in 2 weeks - continue levaquin for 4 more days Time Spent: Greater than 30 Minutes Stroke Is this a Stroke Patient?: No Acute Heart Failure - Is this a Heart Failure Patient?: No
[2019-10-16] MEDS: OXCARBAZEPINE 150 MG TABLET PO SCH ×2 (10:39→17:39)
[2019-10-16] MEDS: LEVOFLOXACIN 750 MG TABLET PO SCH (10:39)
[2019-10-16] MEDS: OLANZAPINE 5 MG TABLET PO SCH ×2 (10:39→17:38)
[2019-10-16] MEDS: LISINOPRIL 10 MG TABLET PO SCH (10:40)
[2019-10-16] MEDS: BENZTROPINE MESYLATE 1 MG TABLET PO SCH (10:40)
[2019-10-16] MEDS: TAMSULOSIN HCL 0.4 MG CAP.SR.24H PO SCH (10:40)
[2019-10-16] MEDS: DOXEPIN HCL 25 MG CAPSULE PO SCH (10:40)
[2019-10-16] MEDS: DOCUSATE SODIUM 100 MG CAPSULE PO SCH ×2 (10:40→17:41)
[2019-10-16] MEDS: HALOPERIDOL 5 MG TABLET PO SCH ×2 (10:40→17:38)
[2019-10-16] MEDS: SENNOSIDES/DOCUSATE 8.6-50 MG 1 EACH TABLET PO SCH (10:41)
[2019-10-16 11:07] LABS: C DIFFICILE GDH NEGATIVE (NEGATIVE)
[2019-10-16] MEDS ORDERED: LOPERAMIDE HCL 2 MG CAPSULE PO ONE (13:09)
[2019-10-16] MEDS ORDERED: RINGERS SOLUTION,LACTATED 1,000 ML IV PRN (16:14)
--- NOTE | 2019-10-16 16:22 | PDOC PROGRESS REPORT ---
Subjective Progress Note for:: 10/16/19 Subjective:: Omega An is a 64/M past medical history of dementia, schizophrenia, who was admitted from the ED due to altered mental status. Most of the history obtained from his healthcare power of divorce attorney Colten Bernardo. According to her patient started to get more confused 1 day prior to admission, said that he would pull try to pull out his catheter or spill his urine all over the floor which is not consistent with his baseline mental status. Home health care nurse noted low- grade fever, and they were told to send the patient to the emergency room. In the emergency room, blood pressure noted to be low at systolic of 84. Harrison catheter draining red red-orange liquid. Patient was given IV bolus, started on ceftriaxone. Urinalysis finding consistent with UTI. Lactate was normal. Was admitted for further antibiotic treatment. Harrison catheter replaced in the ED per ED physician. D2 hospital stay 10/13/19. Patient was seen and examined at bedside. He was put on restraints due to agitation. He was still very confused and stated that I am not a real doctor. Complains of pain in his penis. D2 of zosyn, afebrile. Blood culture growing gram negative rods. D3 hospital stay 10/14/19. Patient was seen and examined at bedside. He was off restraints and seems much more coherent today, less agitated. D3 of zosyn, afebrile. Still complains of pain around harrison catheter area. No Nausea/vomiting. No chest pain, SOB. Urine cx growing gram negative rods. Blood cx negative x 2. On D3 zosyn. D4 hospital stay 10/15/19. Patient was seen and examined at bedside. Off restraints, less agitated, much more coherent. Antibiotics switched to levaquin PO today. Afebrile with good appetite. Will trial to take out harrison and see if he is able to void. D5 hospital stay 10/16/19. Patient was seen and examined. Unable to spontaneously void hence harrison was re inserted. Had 4 episodes of watery BM, C.diff screen negative. Afebrile with stable VS. Denies any flank pain, dysuria. On d2 Levaquin. Reason For Visit: URINARY TRACT INFECTION Physical Exam Vital Signs: Temp Pulse Resp BP Pulse Ox 98.1 F 68 20 175/102 H 97 10/16/19 11:09 10/16/19 11:09 10/16/19 11:09 10/16/19 11:09 10/16/19 11:09 Intake & Output 10/15/19 10/16/19 10/17/19 06:59 06:59 06:59 Intake Total 3300 4490 360 Output Total 1475 2960 1600 Balance 1825 1530 -1240 Weight 82.4 kg 85.4 kg General appearance: PRESENT: no acute distress, cooperative Head exam: PRESENT: atraumatic, normocephalic Eye exam: PRESENT: EOMI, PERRLA Mouth exam: PRESENT: moist Neck exam: PRESENT: full ROM Respiratory exam: PRESENT: clear to auscultation kenneth, symmetrical, unlabored Cardiovascular exam: PRESENT: RRR, +S1, +S2 Vascular exam: PRESENT: pallor GI/Abdominal exam: PRESENT: normal bowel sounds, soft. ABSENT: rebound, tenderness Gentrourinary exam: PRESENT: indwelling catheter Extremities exam: ABSENT: +2 edema Musculoskeletal exam: PRESENT: full ROM Neurological exam: PRESENT: alert, awake Psychiatric exam: PRESENT: normal mood Focused psych exam: PRESENT: restlessness Results Laboratory Results: 10/15/19 06:01 10/15/19 06:01 10/12/19 13:48 Catheterized Urine Urine Culture - Final Pseudomonas Aeruginosa Enterococcus Faecalis(Group D) 10/12/19 10/12/19 12:39 16:09 Troponin I 0.129 0.094 Impressions: Head CT 10/12/19 12:43 IMPRESSION: No significant interval change. No acute intracranial hemorrhage, mass, or evidence of acute territorial infarct. 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 EVIDENCE OF ACUTE STROKE: NO. Chest X-Ray 10/12/19 12:45 IMPRESSION: Cardiomegaly without a superimposed acute cardiopulmonary process. Renal Ultrasound 10/13/19 00:00 IMPRESSION: No hydronephrosis. Assessment and Plan - Diagnosis (1) Diarrhea Qualifiers: Diarrhea type: unspecified type Qualified Code(s): R19.7 - Diarrhea, unspecified Is this a current diagnosis for this admission?: Yes Plan: - patient developed watery loose stools today 8x - C.diff screen negative - will start on probiotic and IV fluids for today and will monitor him. (2) Sepsis associated hypotension Is this a current diagnosis for this admission?: Yes (3) UTI (urinary tract infection) Qualifiers: Urinary tract infection type: site unspecified Hematuria presence: with hematuria Qualified Code(s): N39.0 - Urinary tract infection, site not specifi ed; R31.9 - Hematuria, unspecified Is this a current diagnosis for this admission?: Yes Plan: -Patient has a Harrison last replaced on 28 September for urinary retention -Came in due to altered mental status with hypotension - UA positive for blood, leukocyte exterase - urine culture growing gram negative rods - abx switched to levaquin PO (4) Acute encephalopathy Is this a current diagnosis for this admission?: Yes Plan: -IMPROVED. He is back to his baseline - Acute metabolic encephalopathy from infection on top of schizophrenia -Patient has a history of dementia and schizophrenia -CT negative -Altered mental status likely secondary to ongoing UTI -We will continue his home psychiatric medications -Due to improved with treatment of UTI (5) Acute kidney injury Is this a current diagnosis for this admission?: Yes Plan: -resolved - Creatinine 1.37>0.78, baseline 0.7 -Likely secondary to UTI -renal US no hydronephrosis -Daily CMP (6) Schizophrenia Qualifiers: Schizophrenia type: unspecified Qualified Code(s): F20.9 - Schizophrenia, unspecified Is this a current diagnosis for this admission?: Yes Plan: - resumed haldol, olanzapine, benztropine - off restraints - monitor for agitation (7) Leukocytosis Qualifiers: Leukocytosis type: unspecified Qualified Code(s): D72.829 - Elevated white blood cell count, unspecified Is this a current diagnosis for this admission?: Yes Plan: -resolved -Secondary to UTI -Continue to monitor (8) Hypotension Qualifiers: Hypotension type: other hypotension type Qualified Code(s): I95.89 - Other hypotension Is this a current diagnosis for this admission?: Yes Plan: -Secondary to sepsis. -Resolved with fluid bolus (9) Obstructive uropathy Is this a current diagnosis for this admission?: Yes Plan: -Has a history of urinary retention - US renal no hydronephrosis - will try to take out harrison today and see if she's able to pee -Tamsulosin and finasteride resumed (10) Hypothyroidism Is this a current diagnosis for this admission?: Yes - Plan Summary Summary: Patient developed diarrhea about 8 times today. C. difficile screen negative. Patient received antibiotics a few weeks ago as well as during this admission. No fever white count normal. Will observe overnight. Will discharge tomorrow once diarrhea has resolved. - Time Time Spent with patient: 25-34 minutes Anticipated Discharge Disposition: Home, Self Care Anticipated Discharge Timeframe: within 48 hours
[2019-10-16] MEDS: LACTOBACILLUS ACIDOPHILUS 250 MG TAB PO SCH (17:39)
[2019-10-16] MEDS: FINASTERIDE 5 MG TABLET PO SCH (21:36)
[2019-10-17] MEDS: LEVOTHYROXINE SODIUM 0.075 MG TABLET PO SCH (05:10)
[2019-10-17] MEDS: HEPARIN SOD (PORCINE) 5,000 UNIT/ML 1 ML VIAL SUBCUT SCH ×4 (05:12→22:36)
[2019-10-17 08:00] LABS: ABSOLUTE EOSINOPHILS # (AUTO) 0.3 10^3/uL (0.0-0.6); ABSOLUTE LYMPHOCYTES (AUTO) 1.8 10^3/uL (0.5-4.7); ABSOLUTE MONOCYTES (AUTO) 0.6 10^3/uL (0.1-1.4); ABSOLUTE NEUT (AUTO) 5.4 10^3/uL (1.7-8.2); BASOPHILS % (AUTO) 0.3 % (0-2); EOSINOPHILS % (AUTO) 3.2 % (0-6); HEMATOCRIT 29.5 % (37.9-51.0); HEMOGLOBIN 10.4 g/dL (13.5-17.0); LYMPHOCYTES % (AUTO) 22.5 % (13-45); MEAN CORPUSCULAR HEMOGLOBIN 29.9 pg (27.0-33.4); MEAN CORPUSCULAR HGB CONC 35.2 g/dL (32.0-36.0); MEAN CORPUSCULAR VOLUME 85 fl (80-97); MONOCYTES % (AUTO) 7.5 % (3-13); PLATELET COUNT 294 10^3/uL (150-450); RED BLOOD COUNT 3.48 10^6/uL (4.35-5.55); RED CELL DISTRIBUTION WIDTH 14.7 % (11.5-14.0); SEGMENTED NEUTROPHILS % (AUTO) 66.5 % (42-78); TOTAL CELLS COUNTED % (AUTO) 100 %; WHITE BLOOD COUNT 8.1 10^3/uL (4.0-10.5)
[2019-10-17 08:30] LABS: ALBUMIN 3.5 g/dL (3.5-5.0); ALKALINE PHOSPHATASE 54 U/L (38-126); ANION GAP 8 (5-19); ASPARTATE AMINO TRANSFERASE 17 U/L (17-59); BILIRUBIN,DIRECT 0.3 mg/dL (0.0-0.4); BILIRUBIN,TOTAL 0.3 mg/dL (0.2-1.3); BLOOD UREA NITROGEN 4 mg/dL (7-20); CALCIUM 8.8 mg/dL (8.4-10.2); CARBON DIOXIDE 23 mmol/L (22-30); CHLORIDE 95 mmol/L (98-107); GLUCOSE 97 mg/dL (75-110); POTASSIUM 3.9 mmol/L (3.6-5.0); TOTAL PROTEIN 5.8 g/dL (6.3-8.2)
[2019-10-17] MEDS: TAMSULOSIN HCL 0.4 MG CAP.SR.24H PO SCH (09:42)
[2019-10-17] MEDS: LEVOFLOXACIN 750 MG TABLET PO SCH (09:42)
[2019-10-17] MEDS: DOXEPIN HCL 25 MG CAPSULE PO SCH (09:43)
[2019-10-17] MEDS: OLANZAPINE 5 MG TABLET PO SCH ×2 (09:43→17:09)
[2019-10-17] MEDS: LISINOPRIL 10 MG TABLET PO SCH (09:43)
[2019-10-17] MEDS: LACTOBACILLUS ACIDOPHILUS 250 MG TAB PO SCH ×2 (09:43→17:08)
[2019-10-17] MEDS: BENZTROPINE MESYLATE 1 MG TABLET PO SCH (09:43)
[2019-10-17] MEDS: HALOPERIDOL 5 MG TABLET PO SCH ×2 (09:43→17:09)
[2019-10-17] MEDS: SENNOSIDES/DOCUSATE 8.6-50 MG 1 EACH TABLET PO SCH (09:44)
[2019-10-17] MEDS: DOCUSATE SODIUM 100 MG CAPSULE PO SCH ×2 (09:44→17:03)
[2019-10-17] MEDS: OXCARBAZEPINE 150 MG TABLET PO SCH ×2 (12:14→17:09)
--- NOTE | 2019-10-17 14:46 | PDOC PROGRESS REPORT ---
Subjective Progress Note for:: 10/17/19 Subjective:: Omega An is a 64/M past medical history of dementia, schizophrenia, who was admitted from the ED due to altered mental status. Most of the history obtained from his healthcare power of litigation attorney associate Colten Bernardo. According to her patient started to get more confused 1 day prior to admission, said that he would pull try to pull out his catheter or spill his urine all over the floor which is not consistent with his baseline mental status. Home health care nurse noted low- grade fever, and they were told to send the patient to the emergency room. In the emergency room, blood pressure noted to be low at systolic of 84. Harrison catheter draining red red-orange liquid. Patient was given IV bolus, started on ceftriaxone. Urinalysis finding consistent with UTI. Lactate was normal. Was admitted for further antibiotic treatment. Harrison catheter replaced in the ED per ED physician. D2 hospital stay 10/13/19. Patient was seen and examined at bedside. He was put on restraints due to agitation. He was still very confused and stated that I am not a real doctor. Complains of pain in his penis. D2 of zosyn, afebrile. Blood culture growing gram negative rods. D3 hospital stay 10/14/19. Patient was seen and examined at bedside. He was off restraints and seems much more coherent today, less agitated. D3 of zosyn, afebrile. Still complains of pain around harrison catheter area. No Nausea/vomiting. No chest pain, SOB. Urine cx growing gram negative rods. Blood cx negative x 2. On D3 zosyn. D4 hospital stay 10/15/19. Patient was seen and examined at bedside. Off restraints, less agitated, much more coherent. Antibiotics switched to levaquin PO today. Afebrile with good appetite. Will trial to take out harrison and see if he is able to void. D5 hospital stay 10/16/19. Patient was seen and examined. Unable to spontaneously void hence harrison was re inserted. Had 4 episodes of watery BM, C.diff screen negative. Afebrile with stable VS. Denies any flank pain, dysuria. On d2 Levaquin. D6 hospital stay 10/17/19. Patient was seen and examined at bedside. He was asking if he can go home. Per nursing no further diarrhea episodes. He is not complaining of headache, dizziness, dysuria. His Na was noted to be 126 today from 135, he does not appear to be hypovolemic despite diarrhea episodes yesterday. He is not on HCTZ or fluoxetine. Per review of prior admission he also had hyponatremia then thought to be because of HCTZ and fluoxetine. Urine osmolality, urine Na and serum osmolality consistent with SIADH. Repeat BMP ordered. Will hold discharge for today and monitor his sodium. Reason For Visit: URINARY TRACT INFECTION Physical Exam Vital Signs: Temp Pulse Resp BP Pulse Ox 101.6 F H 123 H 17 131/48 H 97 10/17/19 08:00 10/17/19 08:00 10/17/19 08:00 10/17/19 08:00 10/17/19 08:00 Intake & Output 10/16/19 10/17/19 10/18/19 06:59 06:59 06:59 Intake Total 4490 780 Output Total 2960 3250 Balance 1530 -2470 Weight 85.4 kg 80.7 kg General appearance: PRESENT: no acute distress, cooperative Head exam: PRESENT: atraumatic, normocephalic Eye exam: PRESENT: EOMI, PERRLA Mouth exam: PRESENT: moist Neck exam: PRESENT: full ROM Respiratory exam: PRESENT: clear to auscultation kenneth, symmetrical, unlabored. ABSENT: wheezes Cardiovascular exam: PRESENT: RRR, +S1, +S2 Pulses: PRESENT: +2 pedal pulses bilateral GI/Abdominal exam: PRESENT: normal bowel sounds, rebound, soft, tenderness Extremities exam: PRESENT: full ROM Musculoskeletal exam: PRESENT: full ROM Neurological exam: PRESENT: alert, awake, oriented to person Focused psych exam: PRESENT: restlessness Skin exam: PRESENT: normal color Results Laboratory Results: 10/17/19 07:25 10/17/19 07:25 10/17/19 10/17/19 10/17/19 07:25 07:25 07:25 WBC 8.1 RBC 3.48 L Hgb 10.4 L Hct 29.5 L MCV 85 MCH 29.9 MCHC 35.2 RDW 14.7 H Plt Count 294 Seg Neutrophils % 66.5 Sodium 125.9 L Potassium 3.9 Chloride 95 L Carbon Dioxide 23 Anion Gap 8 BUN 4 L Creatinine 0.71 Est GFR ( Amer) > 60 Glucose 97 Serum Osmolality 255 L Calcium 8.8 Total Bilirubin 0.3 AST 17 Alkaline Phosphatase 54 Total Protein 5.8 L Albumin 3.5 Urine Osmolality 10/17/19 09:40 WBC RBC Hgb Hct MCV MCH MCHC RDW Plt Count Seg Neutrophils % Sodium Potassium Chloride Carbon Dioxide Anion Gap BUN Creatinine Est GFR ( Amer) Glucose Serum Osmolality Calcium Total Bilirubin AST Alkaline Phosphatase Total Protein Albumin Urine Osmolality 312 10/12/19 12:52 Blood Blood Culture - Final NO GROWTH IN 5 DAYS 10/12/19 12:39 Blood Blood Culture - Final NO GROWTH IN 5 DAYS 10/12/19 10/12/19 12:39 16:09 Troponin I 0.129 0.094 Impressions: Head CT 10/12/19 12:43 IMPRESSION: No significant interval change. No acute intracranial hemorrhage, mass, or evidence of acute territorial infarct. 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 EVIDENCE OF ACUTE STROKE: NO. Chest X-Ray 10/12/19 12:45 IMPRESSION: Cardiomegaly without a superimposed acute cardiopulmonary process. Renal Ultrasound 10/13/19 00:00 IMPRESSION: No hydronephrosis. Assessment and Plan - Diagnosis (1) Diarrhea Qualifiers: Diarrhea type: unspecified type Qualified Code(s): R19.7 - Diarrhea, unspecified Is this a current diagnosis for this admission?: Yes (2) Hyponatremia Is this a current diagnosis for this admission?: Yes Plan: - Na decreased from 136.8>126 - has prior Hyponatremia episode on previous admission - had episodes of diarrhea yesterday - advised to increase water intake since he does not have a line anymore - exam today euvolemic - not on HCTZ or Fluoxetine - Serum osmolality 255, Urine osm 312, urine Na 91 - findings consistent with SIADH - fluid restriction - repeat BMP now. (3) Sepsis associated hypotension Is this a current diagnosis for this admission?: Yes Plan: -RESOLVED -Patient sent to the hospital due to altered mental status -BP systolic noted to be 80s -UA consistent with UTI as the source of sepsis -WBC count 14.8>9.4 -Received 1 dose of Rocephin in the ED -Blood culture negative x 2 - urine culture pseudomonas sensitive to zosyn and levaquin - abx switched to levaquin PO (4) UTI (urinary tract infection) Qualifiers: Urinary tract infection type: site unspecified Hematuria presence: with hematuria Qualified Code(s): N39.0 - Urinary tract infection, site not specified; R31.9 - Hematuria, unspecified Is this a current diagnosis for this admission?: Yes Plan: -Patient has a Harrison last replaced on 28 September for urinary retention -Came in due to altered mental status with hypotension - UA positive for blood, leukocyte exterase - urine culture growing gram negative rods - abx switched to levaquin PO (5) Acute encephalopathy Is this a current diagnosis for this admission?: Yes Plan: -IMPROVED. He is back to his baseline - Acute metabolic encephalopathy from infection on top of schizophrenia -Patient has a history of dementia and schizophrenia -CT negative -Altered mental status likely secondary to ongoing UTI -We will continue his home psychiatric medications -Due to improved with treatment of UTI (6) Acute kidney injury Is this a current diagnosis for this admission?: Yes Plan: -resolved - Creatinine 1.37>0.78, baseline 0.7 -Likely secondary to UTI -renal US no hydronephrosis -Daily CMP (7) Schizophrenia Qualifiers: Schizophrenia type: unspecified Qualified Code(s): F20.9 - Schizophrenia, unspecified Is this a current diagnosis for this admission?: Yes Plan: - resumed haldol, olanzapine, benztropine - off restraints - monitor for agitation (8) Leukocytosis Qualifiers: Leukocytosis type: unspecified Qualified Code(s): D72.829 - Elevated white blood cell count, unspecified Is this a current diagnosis for this admission?: Yes Plan: -resolved -Secondary to UTI -Continue to monitor (9) Hypotension Qualifiers: Hypotension type: other hypotension type Qualified Code(s): I95.89 - Other hypotension Is this a current diagnosis for this admission?: Yes Plan: -Secondary to sepsis. -Resolved with fluid bolus (10) Obstructive uropathy Is this a current diagnosis for this admission?: Yes Plan: -Has a history of urinary retention - US renal no hydronephrosis - will try to take out harrison today and see if she's able to pee -Tamsulosin and finasteride resumed (11) Hypothyroidism Is this a current diagnosis for this admission?: Yes Plan: -Levothyroxine resumed - Plan Summary Summary: Patient developed diarrhea about 8 times today. C. difficile screen negative. Patient received antibiotics a few weeks ago as well as during this admission. No fever white count normal. Will observe overnight. Will discharge tomorrow once diarrhea has resolved. - Time Time Spent with patient: 25-34 minutes Anticipated Discharge Disposition: Home, Self Care Anticipated Discharge Timeframe: to be determined
[2019-10-17 15:11] LABS: ANION GAP 8 (5-19); BLOOD UREA NITROGEN 7 mg/dL (7-20); CALCIUM 8.6 mg/dL (8.4-10.2); CARBON DIOXIDE 25 mmol/L (22-30); CHLORIDE 94 mmol/L (98-107); GLUCOSE 98 mg/dL (75-110)
[2019-10-17] MEDS: FINASTERIDE 5 MG TABLET PO SCH ×2 (21:25→22:37)
[2019-10-18] MEDS ORDERED: HALOPERIDOL LACTATE INJ 5 MG/1 ML VIAL ONE (02:50)
[2019-10-18] MEDS ORDERED: HALOPERIDOL LACTATE INJ 5 MG/1 ML VIAL IM ONE (03:15)
[2019-10-18 06:14] LABS: ALBUMIN 3.7 g/dL (3.5-5.0); ALKALINE PHOSPHATASE 55 U/L (38-126); ANION GAP 7 (5-19); ASPARTATE AMINO TRANSFERASE 23 U/L (17-59); BILIRUBIN,DIRECT 0.3 mg/dL (0.0-0.4); BILIRUBIN,TOTAL 0.3 mg/dL (0.2-1.3); BLOOD UREA NITROGEN 7 mg/dL (7-20); CALCIUM 8.9 mg/dL (8.4-10.2); CARBON DIOXIDE 24 mmol/L (22-30); CHLORIDE 95 mmol/L (98-107); GLUCOSE 102 mg/dL (75-110); TOTAL PROTEIN 6.4 g/dL (6.3-8.2)
[2019-10-18] MEDS: HEPARIN SOD (PORCINE) 5,000 UNIT/ML 1 ML VIAL SUBCUT SCH ×3 (06:56→22:00)
[2019-10-18] MEDS: LEVOTHYROXINE SODIUM 0.075 MG TABLET PO SCH (06:56)
[2019-10-18] MEDS: TAMSULOSIN HCL 0.4 MG CAP.SR.24H PO SCH (10:45)
[2019-10-18] MEDS: LEVOFLOXACIN 750 MG TABLET PO SCH (10:45)
[2019-10-18] MEDS: LACTOBACILLUS ACIDOPHILUS 250 MG TAB PO SCH ×2 (10:45→17:16)
[2019-10-18] MEDS: SODIUM CHLORIDE 1 GM TABLET PO SCH ×2 (10:45→17:16)
[2019-10-18] MEDS: HALOPERIDOL 5 MG TABLET PO SCH ×2 (10:45→17:17)
[2019-10-18] MEDS: DOXEPIN HCL 25 MG CAPSULE PO SCH (10:45)
[2019-10-18] MEDS: DOCUSATE SODIUM 100 MG CAPSULE PO SCH ×2 (10:45→17:15)
[2019-10-18] MEDS: BENZTROPINE MESYLATE 1 MG TABLET PO SCH (10:45)
[2019-10-18] MEDS: OLANZAPINE 5 MG TABLET PO SCH ×2 (10:45→17:17)
[2019-10-18] MEDS: OXCARBAZEPINE 150 MG TABLET PO SCH ×2 (10:46→22:00)
[2019-10-18] MEDS: LISINOPRIL 10 MG TABLET PO SCH (10:46)
[2019-10-18] MEDS: SENNOSIDES/DOCUSATE 8.6-50 MG 1 EACH TABLET PO SCH (10:46)
--- NOTE | 2019-10-18 13:31 | PDOC PROGRESS REPORT ---
Subjective Progress Note for:: 10/18/19 Subjective:: Today patient he is requesting to go home. He states he feels fine. He is quite grumpy and does not want to do much talking. I explained to him that he can't go home at this time as his sodium level is still quite low. He denies any shortness of breath or abdominal pain. He is unable to tell me why he is on Trileptal. Reason For Visit: URINARY TRACT INFECTION Physical Exam Vital Signs: Temp Pulse Resp BP Pulse Ox 98.1 F 61 16 128/63 H 95 10/18/19 11:25 10/18/19 11:25 10/18/19 11:25 10/18/19 11:25 10/18/19 11:25 Intake & Output 10/17/19 10/18/19 10/19/19 06:59 06:59 06:59 Intake Total 780 500 Output Total 3250 1575 Balance -2470 -1075 Weight 80.7 kg 79 kg General appearance: PRESENT: no acute distress, cooperative Neck exam: ABSENT: JVD Respiratory exam: PRESENT: clear to auscultation kenneth, symmetrical, unlabored. ABSENT: tachypnea, wheezes Cardiovascular exam: PRESENT: RRR, +S1, +S2. ABSENT: tachycardia GI/Abdominal exam: PRESENT: soft. ABSENT: rebound, rigid, tenderness Neurological exam: PRESENT: alert, awake Results Laboratory Results: 10/17/19 07:25 10/18/19 05:32 10/17/19 10/18/19 14:40 05:32 Sodium 126.6 L 126.0 L Potassium 4.0 4.0 Chloride 94 L 95 L Carbon Dioxide 25 24 Anion Gap 8 7 BUN 7 7 Creatinine 0.90 0.89 Est GFR ( Amer) > 60 > 60 Glucose 98 102 Calcium 8.6 8.9 Total Bilirubin 0.3 AST 23 Alkaline Phosphatase 55 Total Protein 6.4 Albumin 3.7 10/12/19 12:52 Blood Blood Culture - Final NO GROWTH IN 5 DAYS 10/12/19 12:39 Blood Blood Culture - Final NO GROWTH IN 5 DAYS 10/12/19 10/12/19 12:39 16:09 Troponin I 0.129 0.094 Impressions: Head CT 10/12/19 12:43 IMPRESSION: No significant interval change. No acute intracranial hemorrhage, mass, or evidence of acute territorial infarct. 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 EVIDENCE OF ACUTE STROKE: NO. Chest X-Ray 10/12/19 12:45 IMPRESSION: Cardiomegaly without a superimposed acute cardiopulmonary process. Renal Ultrasound 10/13/19 00:00 IMPRESSION: No hydronephrosis. Assessment and Plan - Diagnosis (1) Hyponatremia Is this a current diagnosis for this admission?: Yes Plan: Urine osmolarity and sodium are consistent with SIADH. However, not much improvement with fluid restriction as sodium today still 126. We will put patient on salt tablets twice a day. Recheck BMP later this afternoon. Hold Trileptal for now. (2) Complicated UTI (urinary tract infection) Is this a current diagnosis for this admission?: Yes Plan: Urine culture positive for Pseudomonas and enterococcus both sensitive to Levaquin. Fever noted yesterday. Continue Levaquin for now. Monitor vital signs closely. (3) Diarrhea Qualifiers: Diarrhea type: unspecified type Qualified Code(s): R19.7 - Diarrhea, unspecified Is this a current diagnosis for this admission?: Yes Plan: C. difficile testing was negative. Will monitor (4) Obstructive uropathy Is this a current diagnosis for this admission?: Yes Plan: Has failed voiding trial during this admission and Chaves was replaced. Will maintain Chaves. Continue tamsulosin and finasteride Outpatient urology follow-up (5) Schizophrenia Qualifiers: Schizophrenia type: unspecified Qualified Code(s): F20.9 - Schizophrenia, unspecified Is this a current diagnosis for this admission?: Yes Plan: Notable history of dementia and schizophrenia [possibly schizoaffective disord er] On home regimen of Haldol, benztropine, Zyprexa and Trileptal. Trileptal on hold for now due to hyponatremia. [employer] Developer is Colten Bernardo (6) Sepsis associated hypotension Is this a current diagnosis for this admission?: Yes Plan: Resolved - Time Time Spent with patient: Less than 15 minutes Anticipated Discharge Disposition: Home, Self Care Anticipated Discharge Timeframe: within 48 hours
[2019-10-18] MEDS: AMLODIPINE BESYLATE 5 MG TABLET PO SCH ×2 (14:27→22:00)
[2019-10-18 15:24] LABS: ANION GAP 13 (5-19); BLOOD UREA NITROGEN 11 mg/dL (7-20); CALCIUM 8.9 mg/dL (8.4-10.2); CARBON DIOXIDE 20 mmol/L (22-30); CHLORIDE 95 mmol/L (98-107); GLUCOSE 127 mg/dL (75-110); POTASSIUM 4.4 mmol/L (3.6-5.0)
[2019-10-18] MEDS ORDERED: HALOPERIDOL LACTATE INJ 5 MG/1 ML VIAL IM PRN (20:18)
[2019-10-18] MEDS: FINASTERIDE 5 MG TABLET PO SCH (22:00)
[2019-10-18] MEDS ORDERED: LISINOPRIL 10 MG TABLET PO SCH (22:00)
[2019-10-19] MEDS: LEVOTHYROXINE SODIUM 0.075 MG TABLET PO SCH (06:16)
[2019-10-19] MEDS: HEPARIN SOD (PORCINE) 5,000 UNIT/ML 1 ML VIAL SUBCUT SCH ×2 (06:17→14:44)
[2019-10-19 09:52] LABS: ANION GAP 6 (5-19); BLOOD UREA NITROGEN 11 mg/dL (7-20); CALCIUM 8.9 mg/dL (8.4-10.2); CARBON DIOXIDE 26 mmol/L (22-30); CHLORIDE 98 mmol/L (98-107); GLUCOSE 109 mg/dL (75-110)
[2019-10-19] MEDS: DOXEPIN HCL 25 MG CAPSULE PO SCH (09:52)
[2019-10-19] MEDS: OLANZAPINE 5 MG TABLET PO SCH (09:57)
[2019-10-19] MEDS: OXCARBAZEPINE 150 MG TABLET PO SCH (09:57)
[2019-10-19] MEDS: LEVOFLOXACIN 750 MG TABLET PO SCH (09:58)
[2019-10-19] MEDS: BENZTROPINE MESYLATE 1 MG TABLET PO SCH (09:58)
[2019-10-19] MEDS: TAMSULOSIN HCL 0.4 MG CAP.SR.24H PO SCH (09:58)
[2019-10-19] MEDS: SODIUM CHLORIDE 1 GM TABLET PO SCH (10:00)
[2019-10-19] MEDS: AMLODIPINE BESYLATE 5 MG TABLET PO SCH (10:00)
[2019-10-19] MEDS: DOCUSATE SODIUM 100 MG CAPSULE PO SCH (10:00)
[2019-10-19] MEDS: HALOPERIDOL 5 MG TABLET PO SCH (10:00)
[2019-10-19] MEDS ORDERED: LISINOPRIL 10 MG TABLET PO SCH (10:00)
[2019-10-19] MEDS: LACTOBACILLUS ACIDOPHILUS 250 MG TAB PO SCH (10:00)
[2019-10-19] MEDS: SENNOSIDES/DOCUSATE 8.6-50 MG 1 EACH TABLET PO SCH (10:01)
--- NOTE | 2019-10-19 13:24 | PDOC DISCHARGE SUMMARY ---
Impression - Admit/DC Date/PCP Admission Date/Primary Care Provider: 10/12/19 15:47 DAVID BUTTERFIELD NP Discharge Date: 10/19/19 - Discharge Diagnosis (1) Complicated UTI (urinary tract infection) Is this a current diagnosis for this admission?: Yes (2) Hyponatremia Is this a current diagnosis for this admission?: Yes (3) Diarrhea Is this a current diagnosis for this admission?: Yes (4) Obstructive uropathy Is this a current diagnosis for this admission?: Yes (5) Schizophrenia Is this a current diagnosis for this admission?: Yes (6) Sepsis associated hypotension Is this a current diagnosis for this admission?: Yes (7) Hypertension Is this a current diagnosis for this admission?: Yes - Additional Information Resuscitation Status: Full Code Discharge Diet: As Tolerated Discharge Activity: Activity As Tolerated Referrals: BECKY SINGER MD [NO LOCAL MD] - HARRISON PRITCHETT DO [NO LOCAL MD] - 10/25/19 9:15 am DAVID BUTTERFIELD NP [Primary Care Provider] - Follow up as needed Prescriptions: Levofloxacin [Levaquin 750 mg Tablet] 750 mg PO DAILY 4 Days #4 tablet Sodium Chloride [Sodium Chloride 1 gm Tablet] 1 gm PO BID 10 Days #20 tablet Home Medications: Pravastatin Sodium 10 mg PO QHS 04/25/16 Levothyroxine Sodium [Synthroid 0.075 mg Tablet] 0.075 mg PO Q6AM 09/26/16 Benztropine Mesylate 1 mg PO DAILY 10/14/17 Finasteride 5 mg PO DAILY 10/14/17 Olanzapine 15 mg PO BID 10/14/17 Oxcarbazepine [Trileptal] 600 mg PO BID 10/14/17 Tamsulosin HCl [Flomax 0.4 mg Cap.sr] 0.4 mg PO QPM 12/17/17 Haloperidol [Haldol 5 mg Tablet] 5 mg PO BID 09/21/19 Potassium Chloride [Klor-Con M20] 20 meq PO DAILY 09/21/19 Amlodipine Besylate [Norvasc 5 mg Tablet] 5 mg PO Q12 #60 tablet 09/23/19 Calcium Carbonate/Vitamin D3 [Calcium 600-Vit D3 400 Tablet] 1 each PO BID 10/12/19 Eszopiclone 3 mg PO QHS 10/12/19 Ferrous Sulfate [Feosol 325 mg Tablet] 325 mg PO DAILY 10/12/19 Gabapentin [Neurontin 300 mg Capsule] 300 mg PO Q8HP PRN 10/12/19 Lisinopril [Prinivil] 20 mg PO DAILY 10/12/19 Doxepin HCl [Sinequan 25 mg Capsule] 25 mg PO DAILY capsule 10/16/19 Levofloxacin [Levaquin 750 mg Tablet] 750 mg PO DAILY 4 Days #4 tablet 10/16/19 Sodium Chloride [Sodium Chloride 1 gm Tablet] 1 gm PO BID 10 Days #20 tablet 10/19/19 History of Present Illiness History of Present Illness: According to admitting provider: RAMILA JARAMILLO is a 64 year old male, past medical history of dementia, schizophrenia, who was admitted from the ED due to altered mental status. Most of the history obtained from his healthcare power of [place] attorney Colten Bernardo. According to her patient started to get more confused 1 day prior to admission, said that he would pull try to pull out his catheter or spill his urine all over the floor which is not consistent with his baseline mental status. Home health care nurse noted low-grade fever, and they were told to send the patient to the emergency room. In the emergency room, blood pressure noted to be low at systolic of 84. Harrison catheter draining red red-orange liquid. Patient was given IV bolus, started on ceftriaxone. Urinalysis finding consistent with UTI. Lactate was normal. Was admitted for further antibiotic treatment. Harrison catheter replaced in the ED Of note patient was last admitted at [facility] September 20September 14m for GI bleed, also noted with low sodium levels. During prior admission he was treated for UTI with urinary retention. He was discharged with a Harrison. He was seen at his regular urologist clinic on September 27 when they removed his catheter, however he was unable to void hence it was put back the very next day. Hospital Course Hospital Course: Mr. Jaramillo was admitted to the hospital with complicated UTI and sepsis with associated hypotension. He was started on treatment with broad-spectrum IV antibiotics. Urine culture grew Enterobacter as well as Pseudomonas both sensitive to Levaquin. Antibiotics has been switched to Levaquin p.o. He will be on this for 4 more days to complete course for treatment of complicated UTI. He also had ambulatory dysfunction at the time of his arrival which was possibly associated with his sepsis. Notably at that time he needed assistance getting up. However for the past few days in the hospital patient has been very ambulatory and walking around in his room without any assistance. Only concern is him tripping over his Harrison bag so as such we will change his Harrison back to leg bag to prevent such incidents. Patient was also noted to be hyponatremic once again during this hospitalization. His sodium level had dropped midway through hospitalization to 125. Urine studies consistent with SIADH. Patient was put on fluid restriction and then subsequently started on sodium chloride tablets. I had prolonged conversation with patient's supervisor grinding Coltenina Bernardo regarding need for his Trileptal continuation and was informed that this was what he was placed on after having valproic acid toxicity. As a result I will refrain from changing patient's Trileptal to another mood stabilizer currently but I have discussed with Colten that patient should follow-up with her primary care provider to discuss possible alternatives. Patient will have his sodium remeasured in the outpatient setting as well. Harrison discontinuation was attempted but was unsuccessful as patient started retaining urine on voiding trial. As such a Harrison had to be replaced patient will follow-up with his urologist for further evaluation of this. Physical Exam Vital Signs: Temp Pulse Resp BP Pulse Ox 98.4 F 57 L 16 131/63 H 96 10/19/19 09:23 10/19/19 09:23 10/19/19 09:23 10/19/19 09:23 10/19/19 09:23 Intake & Output 10/18/19 10/19/19 10/20/19 06:59 06:59 06:59 Intake Total 500 340 Output Total 1575 675 Balance -1075 -335 Weight 79 kg 76.4 kg General appearance: PRESENT: no acute distress, cooperative Neck exam: ABSENT: JVD Respiratory exam: PRESENT: symmetrical, unlabored. ABSENT: accessory muscle use, tachypnea Cardiovascular exam: PRESENT: +S1, +S2 Musculoskeletal exam: PRESENT: ambulatory Neurological exam: PRESENT: alert, awake Results Laboratory Results: WBC 8.1 10^3/uL (4.0-10.5) 10/17/19 07:25 RBC 3.48 10^6/uL (4.35-5.55) L 10/17/19 07:25 Hgb 10.4 g/dL (13.5-17.0) L 10/17/19 07:25 Hct 29.5 % (37.9-51.0) L 10/17/19 07:25 MCV 85 fl (80-97) 10/17/19 07:25 MCH 29.9 pg (27.0-33.4) 10/17/19 07:25 MCHC 35.2 g/dL (32.0-36.0) 10/17/19 07:25 RDW 14.7 % (11.5-14.0) H 10/17/19 07:25 Plt Count 294 10^3/uL (150-450) 10/17/19 07:25 Lymph % (Auto) 22.5 % (13-45) 10/17/19 07:25 Banner % (Auto) 7.5 % (3-13) 10/17/19 07:25 Eos % (Auto) 3.2 % (0-6) 10/17/19 07:25 Baso % (Auto) 0.3 % (0-2) 10/17/19 07:25 Absolute Neuts (auto) 5.4 10^3/uL (1.7-8.2) 10/17/19 07:25 Absolute Lymphs (auto) 1.8 10^3/uL (0.5-4.7) 10/17/19 07:25 Absolute Monos (auto) 0.6 10^3/uL (0.1-1.4) 10/17/19 07:25 Absolute Eos (auto) 0.3 10^3/uL (0.0-0.6) 10/17/19 07:25 Absolute Basos (auto) 0.0 10^3/uL (0.0-0.2) 10/17/19 07:25 Seg Neutrophils % 66.5 % (42-78) 10/17/19 07:25 PT 14.0 SEC (11.4-15.4) 10/12/19 12:39 INR 1.06 10/12/19 12:39 VBG pH 7.38 (7.30-7.42) 10/12/19 12:39 VBG pCO2 41.9 mmHg (35-63) 10/12/19 12:39 VBG HCO3 24.1 mmol/L (20-32) 10/12/19 12:39 VBG Base Excess -1.1 mmol/L 10/12/19 12:39 Sodium 130.4 mmol/L (137-145) L 10/19/19 08:59 Potassium 4.0 mmol/L (3.6-5.0) 10/19/19 08:59 Chloride 98 mmol/L (98-107) 10/19/19 08:59 Carbon Dioxide 26 mmol/L (22-30) 10/19/19 08:59 Anion Gap 6 (5-19) 10/19/19 08:59 BUN 11 mg/dL (7-20) 10/19/19 08:59 Creatinine 0.93 mg/dL (0.52-1.25) 10/19/19 08:59 Est GFR ( Amer) > 60 (>60) 10/19/19 08:59 Est GFR (MDRD) Non-Af > 60 (>60) 10/19/19 08:59 Glucose 109 mg/dL (75-110) 10/19/19 08:59 POC Glucose 118 mg/dL (70-110) H 10/19/19 11:10 Serum Osmolality 255 mOsm/kg (275-301) L 10/17/19 07:25 Lactic Acid < 0.5 mmol/L (0.7-2.1) L 10/12/19 18:38 Calcium 8.9 mg/dL (8.4-10.2) 10/19/19 08:59 Total Bilirubin 0.3 mg/dL (0.2-1.3) 10/18/19 05:32 Direct Bilirubin 0.3 mg/dL (0.0-0.4) 10/18/19 05:32 Neonat Total Bilirubin Not Reportable 10/18/19 05:32 Neonat Direct Bilirubin Not Reportable 10/18/19 05:32 Neonat Indirect Bili Not Reportable 10/18/19 05:32 AST 23 U/L (17-59) 10/18/19 05:32 ALT 20 U/L (<50) 10/18/19 05:32 Alkaline Phosphatase 55 U/L (38-126) 10/18/19 05:32 Troponin I 0.094 ng/mL 10/12/19 16:09 Total Protein 6.4 g/dL (6.3-8.2) 10/18/19 05:32 Albumin 3.7 g/dL (3.5-5.0) 10/18/19 05:32 Urine Color DARK YELLOW 10/12/19 13:48 Urine Appearance CLOUDY 10/12/19 13:48 Urine pH 7.0 (5.0-9.0) 10/12/19 13:48 Ur Specific [place] 1.014 10/12/19 13:48 Urine Protein >=500 mg/dL (NEGATIVE) H 10/12/19 13:48 Urine Glucose (UA) NEGATIVE mg/dL (NEGATIVE) 10/12/19 13:48 Urine Ketones NEGATIVE mg/dL (NEGATIVE) 10/12/19 13:48 Urine Blood LARGE (NEGATIVE) H 10/12/19 13:48 Urine Nitrite (Reflex) NEGATIVE (NEGATIVE) 10/12/19 13:48 Urine Bilirubin NEGATIVE (NEGATIVE) 10/12/19 13:48 Urine Urobilinogen NEGATIVE mg/dL (<2.0) 10/12/19 13:48 Leukocyte Esterase Rfl LARGE (NEGATIVE) H 10/12/19 13:48 Urine RBC >100 /HPF 10/12/19 13:48 Urine WBC 50-100 /HPF 10/12/19 13:48 Ur Squamous Epith Cells RARE /HPF 10/12/19 13:48 Urine Bacteria 1+ /HPF 10/12/19 13:48 Hyaline Casts 1-5 /LPF 10/12/19 13:48 Urine Osmolality 312 mOsm/kg (300-900) 10/17/19 09:40 Urine Sodium 91 mmol/L (30-90) H 10/17/19 09:40 Urine Ascorbic Acid NEGATIVE (NEGATIVE) 10/12/19 13:48 Stl C. Difficile GDH Ag NEGATIVE (NEGATIVE) 10/16/19 10:07 Stl C.difficile Tox A&B NEGATIVE (NEGATIVE) 10/16/19 10:07 Urine Opiates Screen NEGATIVE 10/12/19 13:48 Urine Methadone Screen NEGATIVE 10/12/19 13:48 Ur Barbiturates Screen NEGATIVE 10/12/19 13:48 Valproic Acid < 10.0 ug/mL (50.0-120.0) L 10/12/19 12:39 Ur Phencyclidine Scrn NEGATIVE 10/12/19 13:48 Ur Amphetamines Screen NEGATIVE 10/12/19 13:48 U Benzodiazepines Scrn NEGATIVE 10/12/19 13:48 Urine Cocaine Screen NEGATIVE 10/12/19 13:48 U Marijuana (THC) Screen NEGATIVE 10/12/19 13:48 Serum Alcohol < 10 mg/dL (NONE DETECTED) 10/12/19 12:39 10/12/19 10/12/19 12:39 16:09 Troponin I 0.129 0.094 Impressions: Head CT 10/12/19 12:43 IMPRESSION: No significant interval change. No acute intracranial hemorrhage, mass, or evidence of acute territorial infarct. 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 EVIDENCE OF ACUTE STROKE: NO. Chest X-Ray 10/12/19 12:45 IMPRESSION: Cardiomegaly without a superimposed acute cardiopulmonary process. Renal Ultrasound 10/13/19 00:00 IMPRESSION: No hydronephrosis. Plan Plan of Treatment: - he will be discharged on harrison since attempt to take it out failed while he was admitted - follow up with his urologist in 2 weeks - continue levaquin for 4 more days Time Spent: Greater than 30 Minutes Stroke Is this a Stroke Patient?: No Acute Heart Failure - Is this a Heart Failure Patient?: No
[2019-10-19 15:06] VITALS: BP 170/79
== END 2019-10-19 16:00 | disposition home health service (06) | DRG 871 ==
LOC: ER 12:12 → EH 15:47 → 4N 20:51
PROVIDERS: ADMIT Internal Medicine; ATTEND Internal Medicine
DX: A41.9 Sepsis, unspecified organism (principal); G93.41 Metabolic encephalopathy; N39.0 Urinary tract infection, site not specified; E87.1 Hypo-osmolality and hyponatremia; N17.9 Acute kidney failure, unspecified; Z78.1 Physical restraint status; R41.82 Altered mental status, unspecified; R19.7 Diarrhea, unspecified; N13.9 Obstructive and reflux uropathy, unspecified; F20.9 Schizophrenia, unspecified; F03.90 Unspecified dementia, unspecified severity, without behavioral disturbance, psychotic disturbance, mood disturbance, and anxiety; I10 Essential (primary) hypertension; B95.2 Enterococcus as the cause of diseases classified elsewhere; B96.5 Pseudomonas (aeruginosa) (mallei) (pseudomallei) as the cause of diseases classified elsewhere; E03.9 Hypothyroidism, unspecified; E78.5 Hyperlipidemia, unspecified; D64.9 Anemia, unspecified; I95.9 Hypotension, unspecified; E78.00 Pure hypercholesterolemia, unspecified; R31.9 Hematuria, unspecified; F41.9 Anxiety disorder, unspecified; F31.9 Bipolar disorder, unspecified; I69.392 Facial weakness following cerebral infarction; Z79.890 Hormone replacement therapy; Z87.891 Personal history of nicotine dependence; Z79.899 Other long term (current) drug therapy
CPT/HCPCS: 36415; 70450; 71045; 76775; 80048; 80053; 80164; 80307; 81001; 82803; 82962; 83605; 83930; 83935; 84300; 84484; 85025; 85610; 87040; 87086; 87088; 87186; 87324; 87449; 93005; 93010; 96361; 96365; 96375; 99285; J0360; J0696; J1630; J1644; J2310; J2543; J3490; J7030; J7050; J7120

== ENCOUNTER 2019-10-22 18:21 | Emergency (ER) | payer MEDICARE, MEDICAID ==
[~2019-10-22 18:21] MED LIST changes: +EPINEPHRINE INJ 1 MG/10 ML DISP.SYRIN ONE; -KETOROLAC TROMETHAMINE 0.45% 4 DROP/0.4 ML DROPERETTE OS PRN
--- NOTE | 2019-10-22 20:46 | ER Document Report ---
Entered by JILLIAN JOLLY SCRIBE 10/22/19 [id number] Acting as scribe for:DIAZ SIMENTAL DO ED General - General Chief Complaint: Respiratory Distress Stated Complaint: RESPIRATORY DISTRESS Primary Care Provider: DAVID BUTTERFIELD NP [Primary Care Provider] - Follow up as needed Information source: Emergency Med Personnel, [facility] Records Cannot obtain history due to: Other - Unresponsive Notes: This 64 year old male patient presents to the emergency department today with arrival by EMS. Patient was unresponsive on arrival and history was provided by EMS personnel and [facility] records. Patient was unresponsive for x30 minutes before EMS were called by a friend. EMS personnel states patient was found at a house, either the patient's or a friends. EMS reports patient was asystolic and began pacing patient then administered x6 epi's, sodium bicarb, and calcium. EMS placed patient on levophed and epinephrine drip. EMS reports downtime of x1 hour and 15 minutes in the field. EMS states patient was recently discharged from [facility] x3 days ago after being admitted for a UTI and low sodium. TRAVEL OUTSIDE OF THE [place] IN LAST 30 DAYS: No - Related Data Allergies/Adverse Reactions: No Known Allergies Allergy (Verified 09/21/19 02:23) Past Medical History - General Information source: Emergency Med Personnel, [facility] Records Cannot obtain history due to: Other - Unresponsive - Social History Smoking Status: Smoker,Current Status Unk Cigarette use (# per day): Yes Family History: Reviewed & Not Pertinent, Other - Unknown - Past Medical History Cardiac Medical History: Reports: Hx Hypercholesterolemia, Hx Hypertension Pulmonary Medical History: Reports: Hx Pneumonia Neurological Medical History: Reports: Hx Cerebrovascular Accident - 2013 "LITTLE DROOP IN FACE"; TIP TOES,SOMETIMES HARD TO UNDERSTAND, Endocrine Medical History: Reports: Hx Hyperthyroidism, Hx Hypothyroidism Musculoskeletal Medical History: Reports Hx Arthritis - c/o leg and back pain , Reports Hx Muscle Spasm, Reports Hx Musculoskeletal Deformity, Reports Hx Musculoskeletal Trauma Psychiatric Medical History: Reports: Hx Anxiety, Hx Bipolar Disorder, Hx Depression, Hx Schizoaffective Disorder, Hx Schizophrenia - PARANOID Past Surgical History: Reports: Hx Orthopedic Surgery - Immunizations Immunizations up to date: Yes Hx Diphtheria, Pertussis, Tetanus Vaccination: No Review of Systems - Review of Systems -: Yes ROS unobtainable due to patient's medical condition Physical Exam - Vital signs Interpretation: No: Normal - General General appearance: Other - Disheveled and chronicall ill in appearence. No: Appears well, Alert - HEENT Head: Normocephalic, Atraumatic Eyes: No: Periorbital ecchymosis Conjunctiva: Normal - Respiratory Respiratory status: No: No respiratory distress Chest status: No: Nontender Breath sounds: Normal - With bagging clear lungs. Chest palpation: Normal - Cardiovascular Rhythm: No: Regular Heart sounds: No: Normal auscultation Murmur: No - Abdominal Inspection: Normal Distension: Distended - distended due to morbid obesity. No: No distension Bowel sounds: Hypoactive Tenderness: No: Nontender Organomegaly: No organomegaly - Back Back: Normal, Nontender - Extremities General upper extremity: Normal inspection, Normal color. No: Normal temperature General lower extremity: Normal inspection, Normal color. No: Normal temperature, Melani's sign - Neurological Neuro grossly intact: No - GCS 3 I Cognition: No: Normal Orientation: No: AAOx4 Sensory: Normal - Psychological Associated symptoms: No: Normal affect, Normal mood - Skin Skin irregularity: other - Bruising noted to both knee and right 2nd toe. No gross deformity. Notes: Abrasion to dorsal aspect of the 2nd phalanx on the left foot. Multiple abrasions to anterior surface of bilateral knees. Course - Re-evaluation Re-evalutation: 10/22/19 22:27 MDM 64 year old male arrives from a local residence after a reported witnessed arrest without bystander cpr. EMS was called and found asystole and administered epi times 7 and brought him here paced and on epi gtt. He was unresponsive upon arrival and being bagged. He was rapidly placed on our monitor and the epi gtt was discontinued as a pulse coould not be palpated. A sonogram at bedside was performed by me and showed asystole here. The code was continued here without ROSC and the code was called and the pt pronounced at 1837. The family has been notified. Pt has had a history of recent pseudomonas and enterococcus uti, sepsis, schizophrenia, htn, SIADH and hyponalemia 10/23/19 01:18 I have been given the phone number of the poa and I have called them a short time ago and let her know about his passing. She expressed understanding. Critical Care Note - Critical Care Note Total time excluding time spent on procedures (mins): 35 Discharge - Discharge Clinical Impression: Respiratory failure Qualifiers: Chronicity: unspecified Respiratory failure complication: hypoxia Qualified Code(s): J96.91 - Respiratory failure, unspecified with hypoxia Obesity Qualifiers: Obesity type: unspecified obesity type Obesity classification: adult class 2 (BMI 35 - 39.9) Serious obesity comorbidity presence: with serious comorbidity Body mass index: unspecified BMI Qualified Code(s): E66.01 - Morbid (severe) obesity due to excess calories Condition: Poor Disposition: Referrals: DAVID BUTTERFIELD, SURVEY PROJECT MANAGER [Primary Care Provider] - Follow up as needed I personally performed the services described in the documentation, reviewed and edited the documentation which was dictated to the scribe in my presence, and it accurately records my words and actions.
== END 2019-10-23 04:22 | disposition expired ==
LOC: ER 18:21
DX: J96.91 Respiratory failure, unspecified with hypoxia (principal); S90.812A Abrasion, left foot, initial encounter; S80.02XA Contusion of left knee, initial encounter; S80.01XA Contusion of right knee, initial encounter; X58.XXXA Exposure to other specified factors, initial encounter; E66.01 Morbid (severe) obesity due to excess calories; Z68.35 Body mass index [BMI] 35.0-35.9, adult; E78.00 Pure hypercholesterolemia, unspecified; I10 Essential (primary) hypertension; Z86.73 Personal history of transient ischemic attack (TIA), and cerebral infarction without residual deficits
CPT/HCPCS: 99285; 82962; J0171